=== PATIENT | female | born 1965 | race Two or more races ===

== ENCOUNTER 2024-10-17 11:28 | Inpatient (IN) | payer MEDICAID, SELFPAY ==
[2024-10-17] VITALS (12 sets, daily range): BP systolic 116–176; BP diastolic 56–79; PULSE 75–86; RESP 18–79; TEMP 37.1–37.8; O2SAT 74–100; BMI 34.6
--- NOTE | 2024-10-17 11:32 | EKG_ITS ---
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
--- NOTE | 2024-10-17 12:08 | XR_ITS ---
Examination: AP chest single view Technique one AP portable upright chest single view Date and time: October 17, 2024 1233 hours Comparison January 25, 2024 INDICATIONS: Shortness of breath this week. FINDINGS: Mild enlargement cardiac contour Moderate vascular congestion. No lobar pneumonia or pulmonary edema IMPRESSION: Moderate vascular congestion
[2024-10-17 12:29] LABS: Basophils % (Auto) 0 % (0-2.5); Eosinophils # (Auto) 0.1 Thou/mm3 (0.0-0.5); Eosinophils % (Auto) 1 % (0-10); Hemoglobin 11.5 g/dL (12.0-16.0); Immature Granulocytes % (Auto) 0 % (0-0); Immature Granulocytes Auto 0.03 Thou/mm3 (0.00-0.00); Lymphocytes # (Auto) 0.8 Thou/mm3 (1.0-4.8); Lymphocytes % (Auto) 11 % (10-50); Mean Corpuscular HGB Conc 33.8 g/dl (31.0-37.0); Mean Corpuscular Hemoglobin 34.7 pg (25.0-35.0); Mean Corpuscular Volume 103 fL (80-100); Monocytes # (Auto) 0.5 Thou/mm3 (0.0-0.8); Monocytes % (Auto) 7 % (0-12); Neutrophils # (Auto) 5.9 Thou/mm3 (1.8-7.7); Neutrophils % (Auto) 81 % (37-80); Nucleated Red Blood Cell % 0 /100 WBC (0); Platelet Count 144 Thou/mm3 (140-440); RDW Standard Deviation 57.2 fL (36.4-46.3); Red Blood Count 3.31 Miln/mm3 (4.00-5.20); White Blood Count 7.3 Thou/mm3 (3.6-11.0)
--- NOTE | 2024-10-17 12:34 | PD.EDSOB ---
ED SOB =RME/HPI General Chief Complaint: Shortness of Breath/Dyspnea Stated Complaint: SOB & FEVER X3DAYS Time Seen by Provider: 10/17/24 11:33 Arrival date/time: 10/17/24 11:28 RME / HPI RME / HPI Narrative: The patient is a 59-year-old female with significant past medical history of hypertension, diabetes mellitus type 2, hyperlipidemia, asthma, GERD, ESRD on hemodialysis MWF presented to ED on 10/17/2024 with chief complaint of SOB that has been worsening for the past couple of days. She was recommended extra session of hemodialysis every week, but she has not been able to adjust that. She had associated dizziness, epigastric pain, nausea, leg swelling, fever, and chills, but denied any headache, chest pain, any changes in bowel or bladder habit, vomiting. Related Data Home Medications ?Medication ?Instructions ?Recorded ?Confirmed glipizide 5 mg tablet 5 mg PO QDAY 08/12/19 02/03/24 atorvastatin 40 mg tablet 40 mg PO QDAY 10/07/21 02/03/24 carvedilol 6.25 mg tablet 6.25 mg PO BID 10/07/21 02/03/24 calcium acetate 667 mg tablet 1,334 mg PO TID 10/13/21 02/03/24 nifedipine 90 mg tablet,extended 90 mg PO BID 02/02/22 02/03/24 release insulin glargine 100 unit/mL (3 See Rx Instructions .Route .COMPLEX 03/09/22 02/03/24 mL) subcutaneous pen (Basaglar KwikPen U-100 Insulin) Previous Rx's ?Medication ?Instructions ?Recorded hydralazine 50 mg tablet 50 mg PO TID PRN SBP >150 #90 tabs 02/07/24 hydrocodone 5 mg-acetaminophen 325 1 tab PO TID PRN pain #18 tabs 02/07/24 mg tablet Allergies Allergy/AdvReac Type Severity Reaction Status Date / Time No Known Allergies Allergy Verified 10/17/24 11:32 Review of Systems Review of Systems Systems Reviewed: All systems reviewed, normal except as documented (Above) Past Medical History Past Medical History NEUROLOGIC: Negative Neurological Disorders or Seizures CARDIAC: Positive Cardiac Disorders, Hypercholesterolemia and Hypertension; Negative Cellulitis RESPIRATORY: Positive Pneumonia and Sleep Apnea GASTROINTESTINAL: Positive Gastrointestinal Disorders, Gall Bladder Disease, Ulcer and Gastroesophageal Reflux Disease; Negative Hepatitis GENITOURINARY: Positive Genitourinary Disorders, Renal Disease, Kidney Stones and Dialysis REPRODUCTIVE: Positive Previous Pregnancies MUSCULOSKELETAL: Positive Musculoskeletal Disorders and Arthritis ENT: Positive Cataracts ENDOCRINE: Positive Endocrine Disorders and Diabetes Mellitus Type 2 (GLIPIZIDE); Negative Diabetes Mellitus Type 1 or Hypothyroidism HEMATOLOGIC: Positive Blood Disorders and Anemia; Negative Sickle Cell Disease PSYCHO/SOCIAL: Positive Depression and Anxiety OTHER HISTORY: Positive Hospitalization, Blood Transfusions and Measles; Negative Autoimmune Disease, Shingles, Falls, Blood Transfusion Reaction, Anesthesia Reactions, Chemotherapy, Radiation Therapy, MRSA, Chicken Pox, Mumps or Cancer Family History FAMILY HISTORY: Positive Family Psychiatric Problems, Family Respiratory Disorders, Family Cardiac Disorders, Family Gastrointestinal Problems, Family Cancer and Family Anesthesia Reaction; Negative Family Surgery Surgical History SURGICAL: Positive Ear Surgery, Abdominal Surgery, Tubal Ligation and Section; Negative Cardiac Surgery, Pacemaker, Endocrine Surgery, Nephrectomy, Joint Replacement or Neurologic Surgery Social History SMOKING STATUS: Former smoker (Smoked about 3 years, couple cigarettes a day.) SUBSTANCE USE: does not use ED Exam Narrative Physical exam: General: Elderly, cooperative female, no acute distress, Alert and Oriented x 3 HEENT: Moist mucous membranes, oropharynx clear Neck: Supple, No masses, No JVD CVS: S1S2 Regular rate and rhythm, No murmurs, rubs or gallops Lungs: Rhonchi and wheezing appreciated throughout the lung field Abd: Soft, NT/ND, +BS, no organomegaly Ext: 2-3+ bilateral lower limb edema, warm and well perfused Skin: Darkening of lower limb Psych: Tired appearing Course Quality Measures none Orders Category Date Time Status Bedside COVID-19 Antigen Test NOW Care 10/17/24 12:09 Active Bedside Influenza A&B Antigen Test NOW Care 10/17/24 12:09 Completed EKG (ED ONLY) *Do not use* NOW Care 10/17/24 11:32 Completed EKG (ED Only) Stat Exams 10/17/24 11:32 Draft XR chest 1V Stat Exams 10/17/24 12:08 Completed B-Type Natriuretic Peptide Stat Lab 10/17/24 12:20 Completed Blood Culture (Lab) Stat Lab 10/17/24 12:43 Received CBC Stat Lab 10/17/24 12:20 Completed Comprehensive Metabolic Panel Stat Lab 10/17/24 12:20 Completed ESR [Sed Rate (ESR)] Stat Lab 10/17/24 12:45 Completed Lactic Acid [Lactate (Lactic Acid)] Stat Lab 10/17/24 12:45 Completed Magnesium Stat Lab 10/17/24 12:20 Completed Partial Thromboplastin Time Stat Lab 10/17/24 12:20 Completed Procalcitonin Stat Lab 10/17/24 12:45 Received Prothrombin Time with INR Stat Lab 10/17/24 12:20 Completed RSV [Respiratory Syncytial Virus Ag] Stat Lab 10/17/24 12:21 Completed Sputum Culture and Gram Stain Stat Lab 10/17/24 12:58 Received Troponin I Stat Lab 10/17/24 12:20 Completed Urinalysis Stat Lab 10/17/24 12:08 Ordered Albuterol/Ipratr Rt Niurka [Duoneb Rt Niurka] Med 10/17/24 12:27 Discontinued 3 ml INH X1 ONE Doxycycline Inj [Vibramycin Inj] 100 mg Med 10/17/24 12:27 Discontinued Sodium Chloride 0.9% (Pop) [NS 0.9% mini bag] 100 ml IV X1 Sodium Chloride Rt Niurka 10% [NS Rt Niurka 10%] Med 10/17/24 12:30 Discontinued 5 ml INH X1 ONE cefTRIAXone/D5w 1gm IV premix [Rocephin/D5w 1gm IV Med 10/17/24 12:27 Discontinued premix] 1 gm in 50 ml IV X1 Oxygen Delivery NOW RT 10/17/24 12:10 Active Sputum Induction PRN RT 10/17/24 12:30 Ordered Vital Signs Vital signs: Vital Signs Temperature 100.1 F 10/17/24 11:53 Pulse Rate 86 10/17/24 11:53 Respiratory Rate 18 10/17/24 11:53 Blood Pressure 147/72 H 10/17/24 11:53 Pulse Oximetry (%) 74 L 10/17/24 11:53 Oxygen Delivery Method Room Air 10/17/24 11:53 Shortness of Breath / Dyspnea MDM Narrative MDM Narrative:: The patient is a 59-year-old female with significant past medical history of hypertension, diabetes mellitus type 2, hyperlipidemia, asthma, GERD, ESRD on hemodialysis MWF presented to ED on 10/17/2024 with chief complaint of SOB that has been worsening for the past couple of days. She was recommended extra session of hemodialysis every week, but she has not been able to adjust that. She had associated dizziness, epigastric pain, nausea, leg swelling, fever, and chills, but denied any headache, chest pain, any changes in bowel or bladder habit, vomiting. Her vitals were BP 147/72, pulse 86, RR 18, temperature 100.1, saturating 74% on room air. Labs revealed Hb 11.5, MCV 103, ESR 41, Coag panel WNL, potassium 5.2, bicarb 31.2, chloride 94, BUN 30, creatinine 4.1, EGFR 12, blood sugar 193, corrected calcium 8.0, AST 39, ALP 265, BNP 673, rapid COVID-19 test negative, influenza A and B-, and RSV negative. Chest x-ray revealed moderate CHF, and EKG revealed sinus rhythm with incomplete RBBB, QTc 483. The patient was given DuoNeb INH x 1, ceftriaxone 1 g IV x 1, doxycycline 100 Mg IV x 1. Furnace Charger Dr. Cortes was consulted, who recommended admitting the patient and would proceed with hemodialysis session. Patient data External records reviewed:: [facility] previous records Clinical information provided by:: patient and family Social determinants that could affect healthcare access:: none Patient has the following chronic illnesses:: See above How is presenting disease/condition affected by chronic disease/condition?: caused by Evaluation data The following diagnostics were reviewed and interpreted by me:: lab results, radiology exam(s) and EKG tracing(s) Lab and/or radiology exams considered but not ordered:: None Interpretation Summary: See above Medications / Prescriptions Medications or Prescriptions considered but not ordered:: None Medication administrations:: Medication Administration History Discontinued Medications Albuterol/Ipratropium (Albuterol/Ipratropium (Duoneb) Rt Niurka 3 Ml Nebu) 3 ml INH X1 ONE Stop: 10/17/24 12:28 Last Admin: 10/17/24 12:52 Dose: 3 ml Documented By: NILESH Ceftriaxone Sodium/Dextrose (Rocephin/D5w 1gm Iv Premix) 1 gm in 50 mls @ 100 mls/hr IV X1 ONE Stop: 10/17/24 12:56 Last Infusion: 10/17/24 13:21 Dose: Infused Documented By: Admin: 10/17/24 12:50 Dose: 100 mls/hr Documented By: GM Doxycycline Hyclate 100 mg/ (Sodium Chloride) 100 mls @ 100 mls/hr IV X1 ONE Stop: 10/17/24 13:26 Last Admin: 10/17/24 13:27 Dose: 100 mls/hr Documented By: GM Sodium Chloride (Sodium Chloride Rt 10% 15 Ml Nebu) 5 ml INH X1 ONE Stop: 10/17/24 12:31 See above Consultations Consultation(s) initiated? (list below): Yes Consultation #1 (Physician, Specialty, Details): Dr. Cortes Diagnosis Shortness of Breath Differential Diagnosis: congestive heart failure, community acquired pneumonia and other (volume overload) Most likely diagnosis given after review of the tests above:: New onset CHF exacerbation Admission Indicated Admission indicated?: indicated Admission Request Was there a request for admission?: Yes Admission Attestation Admission request attestation: Discussed case with Dr. Elizabeth from Hospitalist service regarding admission. Discussed patients ED course, exam findings, labs, and radiology results. The Hospitalist agrees to accept the patient for admission. Disposition Plan Disposition Plan: Admit Discharge Plan Plan Patient Disposition: Admit Acute Care w/in Hospital Prescriptions/Referrals Prescriptions/Med Rec: No Action calcium acetate 667 mg Tablet 1,334 mg PO TID Rx Instructions: after every meal glipizide 5 mg Tablet 5 mg PO QDAY atorvastatin 40 mg tablet 40 mg PO QDAY Patient Comments: TOME JAMES TABLETA TODOS LOS D FOR 90 DAYS carvedilol 6.25 mg tablet 6.25 mg PO BID Patient Comments: TOME JAMES TABLETA DOS VECES AL D A nifedipine 90 mg tablet extended release 90 mg PO BID Patient Comments: TOME JAMES TABLETA TODOS LOS D EN EST MELLISSA VAC O FOR 90 DAYS insulin glargine [Basaglar KwikPen U-100 Insulin] 100 unit/mL (3 mL) insulin pen See Rx Instructions .ROUTE .COMPLEX Patient Comments: INYECTE 20 UNIDADES DEBAJO DE LA PIEL EN LA MANANA Y 15 UNIDADES EN LA TARDE Rx Instructions: per sliding scale per daughter. hydralazine 50 mg Tablet 50 mg PO TID PRN (Reason: SBP >150) Qty: 90 0RF hydrocodone-acetaminophen 5-325 mg tablet 1 tab PO TID MDD 15mg PRN (Reason: pain) Qty: 18 0RF Referrals: Miguel Macdonald MD [Primary Care Provider] - In 1 week Problem List Clinical Impression: Acute hypoxemic respiratory failure, ESRD due to benign hypertension, Congestive heart failure Patient/Caregiver Discharge Instructions Print Language: Greenlandic Stand Alone Forms: [facility] Award Info., Patient Portal Info Letter
[2024-10-17] MEDS: cefTRIAXone/D5w 1gm IV premix 1 GM/50 ML BAG IV (12:50)
[2024-10-17] MEDS: ALBUTEROL/IPRATROPIUM (Duoneb) RT SOL 3 ML NEBU INH (12:52)
[2024-10-17 13:14] LABS: Alanine Aminotransferase 19 U/L (10-49); Albumin/Globulin Ratio 1.6 (1.2-2.2); Alkaline Phosphatase 265 U/L (46-116); Anion Gap 11 (7-16); Aspartate Amino Transferase 39 U/L (0-34); B-Type Natriuretic Peptide 673 pg/mL (0-100); BUN/Creatinine Ratio 7 Ratio (12-20); Bilirubin,Total < 0.2 mg/dL (0.3-1.2); Blood Urea Nitrogen 30 mg/dL (9-23); Carbon Dioxide 31.2 mMol/L (20.0-31.0); Chloride 94 mMol/L (98-107); Creatinine (Component) 4.1 mg/dL (0.6-1.3); Globulin 2.5 gm/dL (2.3-3.5); Glucose 193 mg/dL (74-106); Magnesium 2.2 mg/dL (1.6-2.6); Osmolality,Calculated 283 (275-295); Potassium 5.2 mMol/L (3.4-5.1); Sodium 136 mMol/L (136-145); Total Protein 6.5 gm/dL (5.7-8.2); Troponin I < 0.020 ng/mL (0.0-0.045); eGFR 12 See Note
[2024-10-17 13:16] LABS: Respiratory Syncytial Virus Ag Negative (Negative)
[2024-10-17 13:18] LABS: Lactate (Lactic Acid) 0.8 mMol/L (0.4-2.0)
[2024-10-17] MEDS: DOXYCYCLINE INJ 100 MG in SODIUM CHLORIDE 0.9% (POP) 100 ML IV (13:27)
[2024-10-17 13:28] LABS: Sed Rate (ESR) 41 mm/hr (0-30)
[2024-10-17 13:42] LABS: INR 1.1 (0.9-1.3); Partial Thromboplastin Time 31.9 Seconds (22.0-36.0); Prothrombin Time 11.5 Seconds (9.0-12.2)
[2024-10-17 14:18] LABS: Procalcitonin 1.24 ng/ml (0.0-0.49)
--- NOTE | 2024-10-17 15:03 | ECHO_ITS ---
Transthoracic Echo Report Ht (in): 57 Wt (lb): 160 Exam Location: Echo Lab Status: Emergency Cardiovascular Specialist: Miya Power Indications: Procedure Performed: BP: 123 / 66 HR: 83 Technical Quality: Technically difficult study MEASUREMENTS (Male / Female) Normal Values 2D ECHO LV Diastolic Diameter PLAX 4.4 cm 4.2 - 5.9 / 3.9 - 5.3 cm LV Systolic Diameter PLAX 3.1 cm IVS Diastolic Thickness 0.9 cm 0.6 - 1.0 / 0.6 - 0.9 cm LVPW Diastolic Thickness 0.9 cm 0.6 - 1.0 / 0.6 - 0.9 cm LV Relative Wall Thickness 0.4 LVOT Diameter 1.4 cm LA Volume Index 32.6 cm?/m? 16 - 28 cm?/m? M-MODE Aortic Root Diameter MM 2.3 cm LA Systolic Diameter MM 3.8 cm LA Ao Ratio MM 1.7 AV Cusp Separation MM 1.8 cm DOPPLER AV Peak Velocity 153.0 cm/s AV Peak Gradient 9.4 mmHg AV Mean Gradient 5.0 mmHg AV Velocity Time Integral 30.9 cm LVOT Peak Velocity 122.0 cm/s LVOT Peak Gradient 6.0 mmHg LVOT Velocity Time Integral 24.5 cm LVOT Cardiac Index 1792.2 cm?/min?m? AV Area Cont Eq vti 1.2 cm? AV Area Cont Eq pk 1.2 cm? MV Area PHT 5.4 cm? Mitral E Point Velocity 91.2 cm/s Mitral A Point Velocity 52.4 cm/s Mitral E to A Ratio 1.7 LV E' Lateral Velocity 10.4 cm/s Mitral E to LV E' Lateral Ratio 8.8 LV E' Septal Velocity 8.5 cm/s Mitral E to LV E' Septal Ratio 10.7 TR Peak Velocity 280.5 cm/s TR Peak Gradient 31.5 mmHg PV Peak Velocity 138.0 cm/s PV Peak Gradient 7.6 mmHg FINDINGS Left Ventricle Normal left ventricular size, wall thickness, systolic function with no obvious regional wall motion abnormalities. Normal left ventricular diastolic filling pattern for age. The ejection fraction is visually estimated at 55 %. Right Ventricle The right ventricular size is moderately increased with normal systolic function. The estimated right ventricular systolic pressure, 49 mmHg. RAP 15. Left Atrium Normal left atrial size. Right Atrium The right atrial cavity size is moderately increased. Atrial Septum The interatrial septum appears normal with no evidence of a shunt. Aorta The aorta is normal by two-dimensional, color flow and Doppler interrogation. Mitral Valve The mitral valve is normal by two-dimensional, color flow and Doppler interrogation. Trace mitral regurgitation. Aortic Valve The aortic valve is trileaflet and normal by two-dimensional, color flow and Doppler interrogation. There is no significant aortic valve regurgitation. Tricuspid Valve The tricuspid valve is normal by two-dimensional, color flow and Doppler interrogation. There is moderate tricuspid regurgitation. Pulmonic Valve The pulmonic valve is not well visualized. There is no significant pulmonic valve regurgitation. Vessels Dilated inferior vena cava. Pericardium The pericardium is normal by two-dimensional imaging. There is no significant pericardial effusion. CONCLUSIONS Indication: Possible new onset CHF Normal left ventricular size and function. Estimated EF 55 %. RV size is moderately increased with normal systolic function. The estimated RVSP, 49 mmHg. RAP 15. RA cavity size is moderately increased. Trace MR. Moderate TR. Dilated IVC. Madison Robertson (Electronically Signed) Final Date: 22 Oct 2024 21:17
--- NOTE | 2024-10-17 15:15 | ESHP_ITS ---
Documentation for date of: 10/17/24 [facility] History of Present Illness History of present illness: Donna Max is a 59-year-old female with a past medical history of ESRD on HD M/W/F (follows Dr. Cortes), hypertension, hyperlipidemia, type 2 diabetes mellitus, asthma, GERD and depression who presents on 10/17 with shortness of breath. Daughter present at bedside to help provide additional history and translate. For the last 4 to 5 days, patient has been experiencing worsening shortness of breath with associated productive cough nonbloody, green- colored sputum, fever, chills, and pleuritic chest discomfort. Daughter states that there have been multiple sick contacts at home but patient was tested and negative for COVID and flu in the ED. Patient has also been experiencing orthopnea, PND, and worsening lower extremity edema. She underwent hemodialysis yesterday with no improvement in her symptoms. Regarding chest discomfort, it is pressure-like, substernal, radiates to the back, not associated with activity, but is tender to palpation and worsens with movement. However, daughter states that patient at baseline becomes dyspneic upon mild exertion and was prescribed home oxygen approximately 2 years ago but has since been taken away for unknown reasons. Does not follow-up with a metal temperer. In ED, initial vitals showed temperature 100.1 ?F, breathing 74% on room air and then placed on 10 L oxy mask eventually titrated down to 2 L NC saturating 96%. RSV, COVID and flu negative as mentioned above. CBC showed macrocytic anemia (chronic), no leukocytosis, ESR elevated at 41, Pro-Aj 1.24, K 5.2, HCO3 31.2, BUN 30, creatinine 4.1, GFR 12, glucose 193, ALP 265, troponins negative, BNP 673. CXR showed vascular congestion but no signs of pneumonia or pulmonary edema. EKG showed NSR with incomplete RBBB with QTc of 483. Given ceftriaxone and doxycycline x 1 in ED as well as x 1 DuoNeb treatment. Admitted for AHRF secondary to community acquired pneumonia and requiring extra session of hemodialysis. PMHx: ESRD on HD M/W/F (follows Dr. Bennett), hypertension, hyperlipidemia, type 2 diabetes mellitus, asthma, and GERD SHx: denies cigarette, alcohol, or illicit drug use PSHx: 3 C-sections, hernia repair, cholecystectomy, fistula in RUE Allergies: none Review of Systems Review of Systems Systems Reviewed: All systems reviewed, normal except as documented Exam Vital Signs Temp Pulse Resp BP Pulse Ox O2 Del Method O2 Flow Rate 99.3 F 85 19 147/69 H 96 Oxy Mask 2 10/17/24 14:00 10/17/24 14:00 10/17/24 14:00 10/17/24 14:00 10/17/24 14:00 10/17/24 14:00 10/17/24 14:00 Narrative Exam General: AOx3, mild distress, able to speak in full sentences HEENT: NC/AT, mucous membranes moist, bilateral sclera anicteric Cardiovascular: regular rate and rhythm, S1/S2 present, no murmurs appreciated Pulmonary: rales appreciated anteriorly and bilaterally, on 2 L NC saturating 94%, no accessory muscle use Abdominal: obese, soft, non-tender, non-distended, no rebound/guarding Musculoskeletal: bilateral lower extremity pitting edema (1+ RLE, 2+ LLE), normal ROM Skin: fistula in RUE, warm and dry, intact, no rashes Neuro: CN II-XII intact, no focal deficits Results: Labs 10/17/24 12:20 10/17/24 12:20 Labs: Short CBC 10/17/24 Range/Units 12:20 WBC 7.3 (3.6-11.0) Thou/mm3 Hgb 11.5 L (12.0-16.0) g/dL Hct 34.0 L (36.0-46.0) % Plt Count 144 (140-440) Thou/mm3 BMP 10/17/24 12:20 Sodium 136 Potassium 5.2 H Chloride 94 L Carbon Dioxide 31.2 H BUN 30 H Creatinine 4.1 H* Glucose 193 H Calcium 8.0 L Cardiac Enzymes 10/17/24 Range/Units 12:20 Troponin I < 0.020 (0.0-0.045) ng/mL Liver Function 10/17/24 Range/Units 12:20 Total Bilirubin < 0.2 L (0.3-1.2) mg/dL AST 39 H (0-34) U/L ALT 19 (10-49) U/L Alkaline Phosphatase 265 H (46-116) U/L Albumin 4.0 (3.4-4.8) gm/dL Quality Measures Quality Measures none Medications Home Medications and Allergies Home Medications ?Medication ?Instructions ?Recorded ?Confirmed ?Type glipizide 5 mg tablet 5 mg PO QDAY 08/12/19 History atorvastatin 40 mg tablet 40 mg PO QDAY 10/07/2110/17 History carvedilol 6.25 mg tablet 6.25 mg PO BID 10/07/21/07/23 History calcium acetate 667 mg tablet 1,334 mg PO TID 10/13/21 02/03/24 History nifedipine 90 mg tablet,extended 90 mg PO BID 02/02/22 10/17/24 History release insulin glargine 100 unit/mL (3 See Rx Instructions .R oute .COMPLEX 03/09/22 02/03/24 History mL) subcutaneous pen (Basaglar KwikPen U-100 Insulin) sertraline 100 mg tablet 150 mg PO DAILY 10/17/24 History Allergies Allergy/AdvReac Type Severity Reaction Status Date / Time No Known Allergies Allergy Verified 10/17/24 11:32 Visit Medications Acetaminophen (Acetaminophen 325 Mg Tablet) 650 mg PO Q6H PRN PRN Reason: PAIN 1-3 OR FEVER > 100.4 Stop: 11/16/24 14:58 Albuterol (Albuterol Rt 2.5 Mg/0.5 Ml Nebu) 2.5 mg INH Q2HR PRN PRN Reason: SHORTNESS OF BREATH OR WHEEZE Stop: 11/16/24 14:58 Dextrose (Dextrose 50%-Water Inj 50 Ml Syringe) 25 ml IV Q15MIN PRN PRN Reason: BG 50-70 responsive npo pt Stop: 11/16/24 15:04 Dextrose (Dextrose 50%-Water Inj 50 Ml Syringe) 50 ml IV Q15MIN PRN PRN Reason: BG <50 OR BG <70 & pt unresponsive Stop: 11/16/24 15:04 Glucagon (Glucagon Inj 1 Mg Vial) 1 mg IM Q15MIN PRN PRN Reason: BG <70, and no IV access Heparin Sodium (Porcine) (Heparin Sod Inj 5000 Unit/Ml Vial) 5,000 unit SC BID [facility] Stop: 10/31/24 20:59 Azithromycin 500 mg/ Sodium (Chloride) 250 mls @ 250 mls/hr IV QDAY [facility] Stop: 10/24/24 15:08 Ceftriaxone Sodium/Dextrose (Rocephin/D5w 1gm Iv Premix) 1 gm in 50 mls @ 100 mls/hr IV QDAY [facility] Stop: 10/25/24 08:59 Azithromycin 500 mg/ Sodium (Chloride) 250 mls @ 250 mls/hr IV X1 ONE Stop: 10/17/24 16:14 Insulin Human Lispro (Insulin Lispro (Admelog) 1 Unit/0.01 Ml Unit) 0 unit SC AC [facility]; Protocol Stop: 11/16/24 16:59 Metoclopramide HCl (Metoclopramide 5 Mg Tablet) 10 mg PO Q6H PRN PRN Reason: NAUSEA OR VOMITING Stop: 11/16/24 14:58 Oxycodone/Acetaminophen (Oxycodone/Apap 5/325 Tablet) 1 tab PO Q8H PRN PRN Reason: PAIN SCALE 4-6 (Moderate Stop: 10/22/24 14:58 Sodium Chloride (Sodium Chloride Rt Niurka 0.9% 3 Ml Nebu) 3 ml INH PRN PRN PRN Reason: SOLN Stop: 11/16/24 14:58 Discontinued Medications Albuterol/Ipratropium (Albuterol/Ipratropium (Duoneb) Rt Niurka 3 Ml Nebu) 3 ml INH X1 ONE Stop: 10/17/24 12:28 Last Admin: 10/17/24 12:52 Dose: 3 ml Ceftriaxone Sodium/Dextrose (Rocephin/D5w 1gm Iv Premix) 1 gm in 50 mls @ 100 mls/hr IV X1 ONE Stop: 10/17/24 12:56 Last Infusion: 10/17/24 13:21 Dose: Infused Doxycycline Hyclate 100 mg/ (Sodium Chloride) 100 mls @ 100 mls/hr IV X1 ONE Stop: 10/17/24 13:26 Last Infusion: 10/17/24 14:35 Dose: Infused Sodium Chloride (Sodium Chloride Rt 10% 15 Ml Nebu) 5 ml INH X1 ONE Stop: 10/17/24 12:31 Assessment & Plan Plan Donna Max is a 59-year-old female with a past medical history of ESRD on HD M/W/F (follows Dr. Cortes), hypertension, hyperlipidemia, type 2 diabetes mellitus, asthma, GERD, and depression who is admitted for AHRF secondary to community acquired pneumonia and requiring extra session of hemodialysis. #AHRF, likely secondary to CAP versus new onset CHF versus fluid overload from ESRD Presents with shortness of breath and associated fever, chills, and productive cough for the last 4 to 5 days. States that she has had sick contacts at home. On admission, temperature at 100.1 ?F and saturating 74% on room air. CXR showed vascular congestion but no signs of pneumonia. No leukocytosis but ESR and Pro-Aj elevated. Flu, COVID, RSV negative. Although abnormal liver function, known to have ESRD so no signs of endorgan damage (lactate normal, T. bili normal). In ED, received ceftriaxone and doxycycline x 1 on 10/17. ? Ceftriaxone (10/17-) and azithromycin (10/18-) ? Follow-up blood culture ? Follow-up sputum culture ? Supplemental oxygen as needed; may need to be discharged with home O2 #ESRD on HD M// #Hyperkalemia #Hypocalcemia Follows Dr. Cortes outpatient. ? Nephrology consulted, appreciate recommendations ? Avoid nephrotoxic agents when possible ? Renally dose medications #? New onset CHF Endorses orthopnea, PND, bilateral lower extremity edema. BNP elevated at 673, troponin negative. Given the patient is ESRD and produces very little urine, unable to obtain accurate I's and O's or diurese. ? Follow-up echo ? Dialysis for fluid control per nephrology #Hypertension ? Carvedilol 6.25 mg p.o. twice daily ? Hydralazine 50 mg p.o. twice daily ? Nifedipine 60 mg p.o. twice daily #Hyperlipidemia ? Atorvastatin 40 mg p.o. daily #Type 2 diabetes mellitus ? Follow-up A1c ? SSI, Accu-Cheks ACHS ? Hypoglycemic protocol in place #Asthma ? Albuterol 2.5 mg every 4 hours as needed #GERD ? Pantoprazole 40 mg p.o. daily #Depression ? Sertraline 150 mg p.o. daily Hospital management: Disposition: AHRF 2/2 CAP on IV antibiotics, possible new onset CHF, hemodialysis Diet: renal panel Lines: PIV DVT prophylaxis: heparin SC BID GI prophylaxis: pantoprazole 40 mg p.o. daily CODE STATUS: DNR ----- Plan discussed with attending physician Dr. Byron Monet MD PGY-1 Internal Medicine Attending Provider Attestation/Addendum I attest that I was physically present for the evaluation, physical examination, lab and imaging review of the patient with the residents. I discussed the case with the residents and agree with the findings and plans of care as documented above. Patient is a 59 years old female with past medical history of ESRD on hemodialysis, hypertension, hyperlipidemia, diabetes, asthma, GERD and depression who presented with complaint of shortness of breath. Patient has been having shortness of breath with productive cough, fever and chills, pleuritic chest pain while coughing and breathing deep for last 4 to 5 days. She has multiple sick contacts at home. She is also having orthopnea, PND and lower extremity edema. Patient underwent hemodialysis yesterday, did not have any improvement in her symptoms. In the ED, she was found to have temperature of 100.1 ?F, initially was saturating at 74% on room air and was placed on 10 L oxy mask. Lab results show ESR of 41, procalcitonin 1.24, potassium 5.2, BUN/creatinine 30/4.1, BNP 673. Troponin levels were negative, RSV COVID and flu were also negative. Chest x-ray shows vascular congestion. EKG shows normal sinus rhythm without ST changes. After examination of the patient and review of clinical data I feel that this patient needs admission to the hospital for further treatment/evaluation of acute hypoxic respiratory failure possibly secondary to community-acquired pneumonia versus CHF exacerbation versus volume overload status. Will restart her on IV Rocephin, continue with hemodialysis and fluid removal, obtain echocardiography, culture results. We will resume her home antihypertensives, statin. Started on insulin regimen for diabetes, albuterol as needed for asthma and sertraline for her depression. Driss Matthews MD
--- NOTE | 2024-10-17 17:13 | PD.NEPHCONS ---
History of Present Illness Data of Consult Consult date: 10/17/24 Requesting Physician: Driss Matthews MD Primary Care Provider: Miguel Macdonald MD Consult Narrative Reason for consult: ESRD, need for HD History of present illness: Ms. Rivero is a 58-year-old lady who is well-known to me from my renal clinic with extensive past medical history of hypertension, diabetes mellitus, hyperlipidemia, asthma, GERD, end-stage renal disease on dialysis MWF, presented to the ED due to significant shortness of breath and fluid overload. Patient has been noncompliant with her fluids and has been drinking significant amount of fluids. Unable to do extra dialysis sessions, unable to pull more fluid per session. In the ED she was noted to have 23+ edema with hypoxic respiratory failure. Patient admitted to telemetry and renal consultation requested for need for emergency dialysis. Home medications: Atorvastatin, calcium, carvedilol 6.25, glipizide 5 mg, hydralazine 50 mg 3 times daily, insulin glargine, nifedipine 90 milligram p.o. twice daily ED course: Blood pressure 131/61, heart rate 77. WBC 7.3, hemoglobin 11.5, platelets 144. Coags normal. Chemistries sodium 136, potassium 5.2, BUN 30, creatinine 4.1, GFR 12, blood sugar 193, calcium 8.0, AST 39, ALT 265, BNP 693, albumin 4, lipids normal, Pro-Aj 1.24 urinalysis shows 2+ protein with 4+ bacteria. RSV negative. Chest x-ray showed moderate vascular congestion. Patient admitted to telemetry. Nephrology consultation requested for need for dialysis. cc:: cc: Driss Matthews MD Review of Systems Review of Systems Narrative Review of Systems: CONSTITUTIONAL: Patient denies any fever, chills. HEENT: Denies any visual disturbances or hearing problems. CARDIOVASCULAR: Patient denies any chest pain c/o shortness of breath, swelling in the lower extremities. PULMONARY: Patient c/o shortness of breath, cough. GASTROINTESTINAL: Patient denies any abdominal pain, constipation, nausea, vomiting, diarrhea. GENITOURINARY: Patient denies any urinary symptoms of burning or frequency or hematuria, denies any form in the urine. SKIN: Denies any rash. MUSCULOSKELETAL: complaining of gait imbalance NEUROLOGICAL: Denies any neurological problems of strokes, seizures or confusion. Denies any memory problems. PSYCHIATRIC: Denies any depression or anxiety. LYMPHATICS : No lymphadenopathy Past Medical History Past Medical History NEUROLOGIC: Negative Neurological Disorders or Seizures CARDIAC: Positive Cardiac Disorders, Hypercholesterolemia and Hypertension; Negative Congestive Heart Failure, Edema, Cellulitis or Varicose Veins RESPIRATORY: Positive Pneumonia and Sleep Apnea; Negative Chronic Obstructive Pulmonary Disease (COPD), Asthma or Tuberculosis GASTROINTESTINAL: Positive Gastrointestinal Disorders, Gall Bladder Disease, Ulcer and Gastroesophageal Reflux Disease; Negative Hepatitis GENITOURINARY: Positive Genitourinary Disorders, Renal Disease, Kidney Stones and Dialysis REPRODUCTIVE: Positive Previous Pregnancies MUSCULOSKELETAL: Positive Musculoskeletal Disorders and Arthritis ENT: Positive Cataracts ENDOCRINE: Positive Endocrine Disorders and Diabetes Mellitus Type 2; Negative Diabetes Mellitus Type 1 or Hypothyroidism HEMATOLOGIC: Positive Blood Disorders and Anemia; Negative Sickle Cell Disease PSYCHO/SOCIAL: Positive Depression and Anxiety OTHER HISTORY: Positive Hospitalization, Blood Transfusions and Measles; Negative Autoimmune Disease, Shingles, Falls, Blood Transfusion Reaction, Anesthesia Reactions, Chemotherapy, Radiation Therapy, MRSA, Chicken Pox, Mumps or Cancer Family History FAMILY HISTORY: Positive Family Psychiatric Problems, Family Respiratory Disorders, Family Cardiac Disorders, Family Gastrointestinal Problems, Family Cancer and Family Anesthesia Reaction; Negative Family Surgery Surgical History SURGICAL: Positive Ear Surgery, Abdominal Surgery, Tubal Ligation and Section; Negative Cardiac Surgery, Pacemaker, Endocrine Surgery, Nephrectomy, Joint Replacement or Neurologic Surgery Social History SMOKING STATUS: Former smoker SUBSTANCE USE: does not use Meds Home Medications and Allergies Home Medications ?Medication ?Instructions ?Recorded ?Confirmed ?Type glipizide 5 mg tablet 5 mg PO QDAY 08/12/19 02/03/24 History atorvastatin 40 mg tablet 40 mg PO QDAY 10/07/21 10/17/24 History carvedilol 6.25 mg tablet 6.25 mg PO BID 10/07/21 10/17/24 History calcium acetate 667 mg tablet 1,334 mg PO TID 10/13/21 02/03/24 History nifedipine 90 mg tablet,extended 90 mg PO BID 02/02/22 10/17/24 History release insulin glargine 100 unit/mL (3 See Rx Instructions .Route .COMPLEX 03/09/22 10/18/24 History mL) subcutaneous pen (Basaglar KwikPen U-100 Insulin) sertraline 100 mg tablet 150 mg PO DAILY 10/17/24 10/17/24 History Allergies Allergy/AdvReac Type Severity Reaction Status Date / Time No Known Allergies Allergy Verified 10/17/24 11:32 Exam Vital Signs Temp Pulse Resp BP Pulse Ox O2 Del Method O2 Flow Rate 37.2 C 78 25 H 175/74 H 95 Oxy Mask 3 10/17/24 19:26 10/17/24 21:00 10/17/24 21:00 10/17/24 20:13 10/17/24 21:00 10/17/24 19:26 10/17/24 21:00 Narrative Exam GENERAL APPEARANCE: Patient very short of breath. Currently on dialysis. NECK: Neck supple, no JVD or bruit CARDIOVASCULAR: Heart regular, no murmurs LUNGS/CHEST: Decreased breath sounds/crackles at the bases ABDOMEN: Soft, nontender, nondistended. No masses. Normal bowel sounds. EXTREMITIES: 3+ edema noted in the lower extremities SKIN: Skin exam normal without any rashes MUSCULOSKELETAL: in bed PSYCHIATRIC: Normal mood, affect LYMPHATICS: No lymphadenopathy noted NEUROLOGICAL : No neurological deficits Results Labs 10/19/24 04:56 10/19/24 04:56 Labs: Short CBC 10/17/24 Range/Units 12:20 WBC 7.3 (3.6-11.0) Thou/mm3 Hgb 11.5 L (12.0-16.0) g/dL Hct 34.0 L (36.0-46.0) % Plt Count 144 (140-440) Thou/mm3 BMP 10/17/24 12:20 Sodium 136 Potassium 5.2 H Chloride 94 L Carbon Dioxide 31.2 H BUN 30 H Creatinine 4.1 H* Glucose 193 H Calcium 8.0 L Cardiac Enzymes 10/17/24 Range/Units 12:20 Troponin I < 0.020 (0.0-0.045) ng/mL Liver Function 10/17/24 Range/Units 12:20 Total Bilirubin < 0.2 L (0.3-1.2) mg/dL AST 39 H (0-34) U/L ALT 19 (10-49) U/L Alkaline Phosphatase 265 H (46-116) U/L Albumin 4.0 (3.4-4.8) gm/dL Urine 10/17/24 Range/Units 20:57 Urine Color Yellow (Lt Yel-Yel) Urine Clarity Clear (Clear/Hazy) Urine pH 8.0 H (5.0-7.0) Ur Specific Strum 1.022 (1.001-1.035) Urine Protein 2+ A (Neg - Trace) Urine Glucose (UA) Negative (Negative) Assessment & Plan Assessment and plan (1) End stage renal failure on dialysis: Status: Acute Assessment and plan: 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 Patient currently on Monday, Monday, Monday dialysis. Patient currently seen on dialysis. Tolerating dialysis without any problems. Hemodialysis for 3 hours, 2K, ultrafiltration 2-3 L, Epogen 6000, no heparin ordered. Plan of care discussed with the dialysis nurse. Please see dialysis flowsheet for further details. Patient will need extra session tomorrow (2) Hypertension: Status: Acute Assessment and plan: Continue with home blood pressure medications (3) Diabetes: Status: Acute Assessment and plan: Accu-Chek, sliding scale, diabetic diet. (4) Congestive heart failure: Status: Acute Assessment and plan: Currently on dialysis (5) Acute hypoxemic respiratory failure: Status: Acute Assessment and plan: Secondary to fluid overload (6) Anemia of chronic disease: Status: Acute Assessment and plan: Epogen with dialysis (7) Elevated LFTs: Status: Acute Assessment and plan: Passive liver congestion Additional Assessment & Plan Additional Plan: Thank you Driss for allowing me to participate in the care of Ms. Rivero
--- NOTE | 2024-10-17 19:33 | PC.NURSE ---
Returned from dialysis at 191
[2024-10-17] MEDS: AZITHROMYCIN INJ 500 MG in SODIUM CHLORIDE 0.9% 250 ML 250 ML 250 MG IV (19:54)
[2024-10-17] MEDS: oxyCODONE/APAP 5/325 TABLET 1 TAB PO (20:11)
[2024-10-17] MEDS: carVEDILOL 3.125 MG TABLET 6.25 MG PO (20:11)
[2024-10-17] MEDS: hydrALAZINE HCL 25 MG TABLET 50 MG PO (20:12)
[2024-10-17] MEDS: NIFEdipine XL 30 MG TABCR 90 MG PO (20:13)
[2024-10-17] MEDS: HEPARIN SOD INJ 5000 UNIT/ML VIAL SC (20:14)
[2024-10-17] MEDS: SODIUM CHLORIDE RT SOL 0.9% 3 ML NEBU INH (21:00)
[2024-10-17] MEDS: ALBUTEROL RT 2.5 MG/0.5 ML NEBU INH (21:00)
[2024-10-17 21:01] LABS: Collection Type, Urine Clean Catch
[2024-10-17 21:08] LABS: Bacteria,Urine 4+; Bilirubin,Urine Negative (Negative); Blood,Urine Negative (Negative); Clarity,Urine Clear (Clear/Hazy); Color,Urine Yellow (Lt Yel-Yel); Glucose, Urine Negative (Negative); Ketones,Urine Negative (Negative); Leukocyte Esterase,Urine Negative (Negative); Nitrite,Urine Negative (Negative); Protein,Urine 2+ (Neg - Trace); RBC,Urine 11 /hpf (0-3); Specific Gravity,Urine 1.022 (1.001-1.035); Squamous Epithelial Cell,Urine 17 /hpf (0-5); Urobilinogen,Urine Negative mg/dL (0.0-1.0); WBC,Urine 32 /hpf (0-5)
[2024-10-18] VITALS (26 sets, daily range): BP systolic 102–140; BP diastolic 50–80; PULSE 72–89; RESP 12–20; TEMP 35.8–37.8; O2SAT 92–100; BMI 32.4
--- NOTE | 2024-10-18 00:44 | PC.NURSE ---
REPORT CALLED TO МАРИНА PALAFOX AT THIS TIME.
[2024-10-18 05:26] LABS: Basophils % (Auto) 0 % (0-2.5); Eosinophils # (Auto) 0.1 Thou/mm3 (0.0-0.5); Eosinophils % (Auto) 1 % (0-10); Hematocrit 34.5 % (36.0-46.0); Hemoglobin 11.2 g/dL (12.0-16.0); Immature Granulocytes % (Auto) 1 % (0-0); Immature Granulocytes Auto 0.03 Thou/mm3 (0.00-0.00); Lymphocytes # (Auto) 0.7 Thou/mm3 (1.0-4.8); Lymphocytes % (Auto) 13 % (10-50); Mean Corpuscular HGB Conc 32.5 g/dl (31.0-37.0); Mean Corpuscular Hemoglobin 33.8 pg (25.0-35.0); Mean Corpuscular Volume 104 fL (80-100); Monocytes # (Auto) 0.5 Thou/mm3 (0.0-0.8); Monocytes % (Auto) 10 % (0-12); Neutrophils # (Auto) 3.9 Thou/mm3 (1.8-7.7); Neutrophils % (Auto) 75 % (37-80); Nucleated Red Blood Cell % 0 /100 WBC (0); Platelet Count 144 Thou/mm3 (140-440); RDW Standard Deviation 58.2 fL (36.4-46.3); Red Blood Count 3.31 Miln/mm3 (4.00-5.20); White Blood Count 5.2 Thou/mm3 (3.6-11.0)
[2024-10-18 05:54] LABS: Glucose Estimated Average 108 mg/dL (80-131); Hemoglobin A1C 5.4 % Hgb (4.8-6.0)
[2024-10-18 06:15] LABS: Alanine Aminotransferase 18 U/L (10-49); Albumin, Serum 3.6 gm/dL (3.4-4.8); Albumin/Globulin Ratio 1.4 (1.2-2.2); Alkaline Phosphatase 250 U/L (46-116); Anion Gap 11 (7-16); Aspartate Amino Transferase 46 U/L (0-34); BUN/Creatinine Ratio 5 Ratio (12-20); Bilirubin,Total < 0.2 mg/dL (0.3-1.2); Blood Urea Nitrogen 17 mg/dL (9-23); Calcium 7.8 mg/dL (8.3-10.6); Calcium (Corrected) 8.1 mg/dL (8.5-10.1); Carbon Dioxide 27.8 mMol/L (20.0-31.0); Cardiac Risk Estimate 3.3 RATIO (3.7-5.6); Chloride 99 mMol/L (98-107); Cholesterol 97 mg/dL (132-200); Creatinine (Component) 3.3 mg/dL (0.6-1.3); Estimated Creatinine Clearance 14.4 mL/min (>60); Globulin 2.5 gm/dL (2.3-3.5); Glucose 252 mg/dL (74-106); HDL Cholesterol 29 mg/dL (40-60); LDL Cholesterol,Calculated 36 mg/dL (0-130); Osmolality,Calculated 286 (275-295); Phosphorous 3.4 mg/dL (2.4-5.1); Potassium 5.3 mMol/L (3.4-5.1); Sodium 138 mMol/L (136-145); Total Protein 6.1 gm/dL (5.7-8.2); Triglycerides 160 mg/dL (30-150); eGFR 15 See Note
[2024-10-18] MEDS: oxyCODONE/APAP 5/325 TABLET 1 TAB PO (06:26)
[2024-10-18] MEDS: INSULIN LISPRO (AdmeLOG) 1 UNIT/0.01 ML UNIT SC ×3 (07:16→16:15)
--- NOTE | 2024-10-18 11:38 | PD.RESPRO ---
Documentation for date of: 10/18/24 Subjective Subjective Interval history: No acute overnight events. Seen and examined at bedside after dialysis and rapid response was called for chest pain. States that she has had chest discomfort in the past after her dialysis sessions. She described it as epigastric, pressure-like, and does not radiate to her arms/neck/back but no shortness of breath. Vital signs stable, MAP > 65, O2 94% on 2 L NC. Ordered EKG, troponins, and maalox as suspect component of reflux. Blood sugars also noted to be elevated in low 200s and increased SSI scale. Currently awaiting echo and further recommendations from nephrology. Exam Vital Signs Temp Pulse Resp BP Pulse Ox O2 Del Method O2 Flow Rate 97.5 F 76 18 119/61 95 Nasal Cannula 2 10/18/24 10:55 10/18/24 11:15 10/18/24 10:55 10/18/24 11:15 10/18/24 10:55 10/18/24 08:00 10/18/24 10:55 Narrative Exam General: AOx3, mild distress, able to speak in full sentences HEENT: NC/AT, mucous membranes moist, bilateral sclera anicteric Cardiovascular: regular rate and rhythm, S1/S2 present, no murmurs appreciated Pulmonary: lungs clear to auscultation bilaterally, on 2 L NC saturating 94%, no accessory muscle use Abdominal: obese, soft, non-tender, non-distended, no rebound/guarding Musculoskeletal: bilateral lower extremity pitting edema (1+ RLE, 2+ LLE), normal ROM Skin: fistula in RUE, warm and dry, intact, no rashes Neuro: CN II-XII intact, no focal deficits Objective Labs 10/19/24 04:56 10/19/24 04:56 Labs: Laboratory Results - last 24 hr 10/17/24 10/17/24 10/17/24 12:20 12:21 12:45 WBC 7.3 RBC 3.31 L Hgb 11.5 L Hct 34.0 L MCV 103 H MCH 34.7 MCHC 33.8 RDW Std Deviation 57.2 H Plt Count 144 Neut % (Auto) 81 H Lymph % (Auto) 11 [place] % (Auto) 7 Eos % (Auto) 1 Baso % (Auto) 0 Neut # (Auto) 5.9 Lymph # (Auto) 0.8 L [place] # (Auto) 0.5 Eos # (Auto) 0.1 Baso # (Auto) 0.0 Immature Gran # (Auto) 0.03 H Absolute Nucleated RBC 0.00 Immature Gran % 0 Nucleated RBC % 0 ESR 41 H PT 11.5 INR 1.1 APTT 31.9 Sodium 136 Potassium 5.2 H Chloride 94 L Carbon Dioxide 31.2 H Anion Gap 11 BUN 30 H Creatinine 4.1 H* Estim Creat Clear Calc 12.0 L eGFR 12 L* BUN/Creatinine Ratio 7 L Glucose [address] Glu mg/dL Hemoglobin A1c Calculated Osmolality 283 Lactic Acid 0.8 Calcium 8.0 L Corrected Calcium 8.0 L Phosphorus Magnesium 2.2 Total Bilirubin < 0.2 L AST 39 H ALT 19 Alkaline Phosphatase 265 H Troponin I < 0.020 B-Natriuretic Peptide 673 H* Total Protein 6.5 Albumin 4.0 Globulin 2.5 Albumin/Globulin Ratio 1.6 Triglycerides Cholesterol LDL Cholesterol, Calc HDL Cholesterol Cholesterol/HDL Ratio Procalcitonin 1.24 H Ur Collection Type Urine Color Urine Clarity Urine pH Ur Specific [place] Urine Protein Urine Glucose (UA) Urine Ketones Urine Blood Urine Nitrite Urine Bilirubin Urine Urobilinogen (Auto) Ur Leukocyte Esterase Urine RBC Urine WBC Ur Squamous Epith Cells Urine Bacteria RSV Rapid Negative 10/17/24 10/18/24 20:57 04:52 WBC 5.2 RBC 3.31 L Hgb 11.2 L Hct 34.5 L MCV 104 H MCH 33.8 MCHC 32.5 RDW Std Deviation 58.2 H Plt Count 144 Neut % (Auto) 75 Lymph % (Auto) 13 [place] % (Auto) 10 Eos % (Auto) 1 Baso % (Auto) 0 Neut # (Auto) 3.9 Lymph # (Auto) 0.7 L [place] # (Auto) 0.5 Eos # (Auto) 0.1 Baso # (Auto) 0.0 Immature Gran # (Auto) 0.03 H Absolute Nucleated RBC 0.00 Immature Gran % 1 H Nucleated RBC % 0 ESR PT INR APTT Sodium 138 Potassium 5.3 H Chloride 99 Carbon Dioxide 27.8 Anion Gap 11 BUN 17 Creatinine 3.3 H D Estim Creat Clear Calc 14.4 L eGFR 15 L BUN/Creatinine Ratio 5 L Glucose [address] Glu mg/dL 108 Hemoglobin A1c 5.4 Calculated Osmolality 286 Lactic Acid Calcium 7.8 L Corrected Calcium 8.1 L Phosphorus 3.4 Magnesium 2.0 Total Bilirubin < 0.2 L AST 46 H ALT 18 Alkaline Phosphatase 250 H Troponin I B-Natriuretic Peptide Total Protein 6.1 Albumin 3.6 Globulin 2.5 Albumin/Globulin Ratio 1.4 Triglycerides 160 H Cholesterol 97 L LDL Cholesterol, Calc 36 HDL Cholesterol 29 L Cholesterol/HDL Ratio 3.3 L Procalcitonin Ur Collection Type Clean Catch Urine Color Yellow Urine Clarity Clear Urine pH 8.0 H Ur Specific [place] 1.022 Urine Protein 2+ A Urine Glucose (UA) Negative Urine Ketones Negative Urine Blood Negative Urine Nitrite Negative Urine Bilirubin Negative Urine Urobilinogen (Auto) Negative Ur Leukocyte Esterase Negative Urine RBC 11 H Urine WBC 32 H Ur Squamous Epith Cells 17 H Urine Bacteria 4+ A RSV Rapid Quality Measures Quality Measures none Assessment & Plan Assessment Current Active Medications: Generic Name Dose Route Start Last Admin Trade Name Freq PRN Reason Stop Dose Admin Acetaminophen 650 mg 10/17/24 14:59 Acetaminophen 325 Mg Tablet PO 11/16/24 14:58 Q6H PRN PAIN 1-3 OR FEVER > 100.4 Albuterol 2.5 mg 10/17/24 14:59 10/17/24 21:00 Albuterol Rt 2.5 Mg/0.5 Ml Nebu INH 11/16/24 14:58 2.5 mg Q2HR PRN Administration SHORTNESS OF BREATH OR WHEEZE Atorvastatin Calcium 40 mg 10/18/24 09:00 10/18/24 08:51 Atorvastatin Calcium 20 Mg Tablet PO 11/17/24 08:59 Not Given QDAY [facility] Azithromycin 500 mg 10/18/24 21:00 Azithromycin 250 Mg Tablet PO 10/24/24 20:59 2100 [facility] Protocol Carvedilol 6.25 mg 10/17/24 21:00 10/18/24 08:51 Carvedilol 3.125 Mg Tablet PO 11/16/24 20:59 Not Given BID WALE Dextrose 25 ml 10/17/24 15:05 Dextrose 50%-Water Inj 50 Ml Syringe IV 11/16/24 15:04 Q15MIN PRN BG 50-70 responsive npo pt Dextrose 50 ml 10/17/24 15:05 Dextrose 50%-Water Inj 50 Ml Syringe IV 11/16/24 15:04 Q15MIN PRN BG <50 OR BG <70 & pt unresponsive Glucagon 1 mg 10/17/24 15:05 Glucagon Inj 1 Mg Vial IM Q15MIN PRN BG <70, and no IV access Heparin Sodium (Porcine) 5,000 unit 10/17/24 21:00 10/18/24 08:51 Heparin Sod Inj 5000 Unit/Ml Vial SC 10/31/24 20:59 Not Given BID [facility] Hydralazine HCl 50 mg 10/17/24 21:00 10/18/24 08:51 Hydralazine Hcl 25 Mg Tablet PO 11/16/24 20:59 Not Given BID [facility] Ceftriaxone Sodium/Dextrose 1 gm in 50 mls @ 100 mls/hr 10/18/24 09:00 10/18/24 08:51 Rocephin/D5w 1gm Iv Premix IV 10/25/24 08:59 Not Given QDAY [facility] Insulin Human Lispro 0 unit 10/18/24 08:01 Insulin Lispro (Admelog) 1 Unit/0.01 Ml Unit SC 11/16/24 16:59 [facility] Protocol Metoclopramide HCl 10 mg 10/17/24 14:59 Metoclopramide 5 Mg Tablet PO 11/16/24 14:58 Q6H PRN NAUSEA OR VOMITING Nifedipine 90 mg 10/17/24 21:00 10/18/24 08:51 Nifedipine Xl 30 Mg Tabcr PO 11/16/24 20:59 Not Given BID [facility] Oxycodone/Acetaminophen 1 tab 10/17/24 14:59 10/18/24 06:26 Oxycodone/Apap 5/325 Tablet PO 10/22/24 14:58 1 tab Q8H PRN Administration PAIN SCALE 4-6 (Moderate Pantoprazole Sodium 40 mg 10/18/24 09:00 10/18/24 08:52 Pantoprazole 40 Mg Tablet PO 11/17/24 08:59 Not Given QDAY [facility] Sertraline HCl 150 mg 10/18/24 09:00 10/18/24 08:52 Sertraline Hcl 25 Mg Tablet PO 11/17/24 08:59 Not Given DAILY [facility] Sodium Chloride 3 ml 10/17/24 14:59 10/17/24 21:00 Sodium Chloride Rt Ni[place]ka 0.9% 3 Ml Nebu INH 11/16/24 14:58 3 ml PRN PRN Administration SOLN Plan Donna Mansoor is a 59-year-old female with a past medical history of ESRD on HD // (follows Dr. Cortes), hypertension, hyperlipidemia, type 2 diabetes mellitus, asthma, GERD, and depression who is admitted for AHRF secondary to community acquired pneumonia and requiring extra session of hemodialysis. #AHRF, likely secondary to CAP versus new onset CHF versus fluid overload from ESRD Presents with shortness of breath and associated fever, chills, and productive cough for the last 4 to 5 days. States that she has had sick contacts at home. On admission, temperature at 100.1 ?F and saturating 74% on room air. CXR showed vascular congestion but no signs of pneumonia. No leukocytosis but ESR and Pro-Aj elevated. Flu, COVID, RSV negative. Although abnormal liver function, known to have ESRD so no signs of endorgan damage (lactate normal, T. bili normal). In ED, received ceftriaxone and doxycycline x 1 on 10/17. ? Ceftriaxone (10/17-) and azithromycin (10/18-) ? Follow-up blood culture ? Follow-up sputum culture ? Supplemental oxygen as needed; may need to be discharged with home O2 #ESRD on HD // #Hyperkalemia #Hypocalcemia Follows Dr. Cortes outpatient. ? Nephrology consulted, appreciate recommendations ? Avoid nephrotoxic agents when possible ? Renally dose medications #? New onset CHF #Atypical chest pain Endorses orthopnea, PND, bilateral lower extremity edema. BNP elevated at 673, troponin negative. Given the patient is ESRD and produces very little urine, unable to obtain accurate I's and O's or diurese. ? Follow-up echo ? Dialysis for fluid control per nephrology ? Follow-up troponins #Hypertension ? Carvedilol 6.25 mg p.o. twice daily ? Hydralazine 50 mg p.o. twice daily ? Nifedipine 60 mg p.o. twice daily #Hyperlipidemia ? Atorvastatin 40 mg p.o. daily #Type 2 diabetes mellitus A1c 5.4%. ? SSI, Accu-Cheks ACHS ? Hypoglycemic protocol in place #Asthma ? Albuterol 2.5 mg every 4 hours as needed #GERD ? Pantoprazole 40 mg p.o. daily #Depression ? Sertraline 150 mg p.o. daily Hospital management: Disposition: AHRF 2/2 CAP on IV antibiotics, possible new onset CHF, hemodialysis Diet: renal panel Lines: PIV DVT prophylaxis: heparin SC BID GI prophylaxis: pantoprazole 40 mg p.o. daily CODE STATUS: DNR ----- Plan discussed with attending physician Dr. Byron Monet MD PGY-1 Internal Medicine Attending Provider Attestation/Addendum I attest that I was physically present for the evaluation, physical examination, lab and imaging review of the patient with the residents. I discussed the case with the residents and agree with the findings and plans of care as documented above. Driss Matthews MD
--- NOTE | 2024-10-18 11:43 | ESPR_ITS ---
Documentation for date of: 10/18/24 Subjective Subjective Interval history: Ms. Rivero is a 58-year-old lady who is well-known to me from my renal clinic with extensive past medical history of hypertension, diabetes mellitus, hyperlipidemia, asthma, GERD, end-stage renal disease on dialysis MWF, presented to the ED due to significant shortness of breath and fluid overload. Patient has been noncompliant with her fluids and has been drinking significant amount of fluids. Unable to do extra dialysis sessions, unable to pull more fluid per session. In the ED she was noted to have 23+ edema with hypoxic respiratory failure. Patient admitted to telemetry and renal consultation requested for need for emergency dialysis. Home medications: Atorvastatin, calcium, carvedilol 6.25, glipizide 5 mg, hydralazine 50 mg 3 times daily, insulin glargine, nifedipine 90 milligram p.o. twice daily ED course: Blood pressure 131/61, heart rate 77. WBC 7.3, hemoglobin 11.5, platelets 144. Coags normal. Chemistries sodium 136, potassium 5.2, BUN 30, creatinine 4.1, GFR 12, blood sugar 193, calcium 8.0, AST 39, ALT 265, BNP 693, albumin 4, lipids normal, Pro-Aj 1.24 urinalysis shows 2+ protein with 4+ bacteria. RSV negative. Chest x-ray showed moderate vascular congestion. Patient admitted to telemetry. Nephrology consultation requested for need for dialysis. 10/18/2024 patient currently seen on dialysis. Denies any chest pain. Still having some shortness of breath. No nausea, vomiting. Decreased appetite. Review of Systems Review of Systems Narrative Review of Systems: CONSTITUTIONAL: Patient denies any fever, chills. HEENT: Denies any visual disturbances or hearing problems. CARDIOVASCULAR: Patient denies any chest pain c/o shortness of breath, swelling in the lower extremities. PULMONARY: Patient c/o shortness of breath, cough. GASTROINTESTINAL: Patient denies any abdominal pain, constipation, nausea, vomiting, diarrhea. GENITOURINARY: Patient denies any urinary symptoms of burning or frequency or hematuria, denies any form in the urine. SKIN: Denies any rash. MUSCULOSKELETAL: complaining of gait imbalance NEUROLOGICAL: Denies any neurological problems of strokes, seizures or confusion. Denies any memory problems. PSYCHIATRIC: Denies any depression or anxiety. LYMPHATICS : No lymphadenopathy Exam Vital Signs Temp Pulse Resp BP Pulse Ox O2 Del Method O2 Flow Rate 36.4 C 76 18 119/61 95 Nasal Cannula 2 10/18/24 10:55 10/18/24 11:15 10/18/24 10:55 10/18/24 11:15 10/18/24 10:55 10/18/24 08:00 10/18/24 10:55 Narrative Exam GENERAL APPEARANCE: Patient very short of breath. Currently on dialysis. NECK: Neck supple, no JVD or bruit CARDIOVASCULAR: Heart regular, no murmurs LUNGS/CHEST: Decreased breath sounds/crackles at the bases ABDOMEN: Soft, nontender, nondistended. No masses. Normal bowel sounds. EXTREMITIES: 3+ edema noted in the lower extremities SKIN: Skin exam normal without any rashes MUSCULOSKELETAL: in bed PSYCHIATRIC: Normal mood, affect LYMPHATICS: No lymphadenopathy noted NEUROLOGICAL : No neurological deficits Objective Labs 10/19/24 04:56 10/19/24 04:56 Labs: Laboratory Results - last 24 hr 10/17/24 10/17/24 10/17/24 12:20 12:21 12:45 WBC 7.3 RBC 3.31 L Hgb 11.5 L Hct 34.0 L MCV 103 H MCH 34.7 MCHC 33.8 RDW Std Deviation 57.2 H Plt Count 144 Neut % (Auto) 81 H Lymph % (Auto) 11 [place] % (Auto) 7 Eos % (Auto) 1 Baso % (Auto) 0 Neut # (Auto) 5.9 Lymph # (Auto) 0.8 L [place] # (Auto) 0.5 Eos # (Auto) 0.1 Baso # (Auto) 0.0 Immature Gran # (Auto) 0.03 H Absolute Nucleated RBC 0.00 Immature Gran % 0 Nucleated RBC % 0 ESR 41 H PT 11.5 INR 1.1 APTT 31.9 Sodium 136 Potassium 5.2 H Chloride 94 L Carbon Dioxide 31.2 H Anion Gap 11 BUN 30 H Creatinine 4.1 H* Estim Creat Clear Calc 12.0 L eGFR 12 L* BUN/Creatinine Ratio 7 L Glucose [address] Glu mg/dL Hemoglobin A1c Calculated Osmolality 283 Lactic Acid 0.8 Calcium 8.0 L Corrected Calcium 8.0 L Phosphorus Magnesium 2.2 Total Bilirubin < 0.2 L AST 39 H ALT 19 Alkaline Phosphatase 265 H Troponin I < 0.020 B-Natriuretic Peptide 673 H* Total Protein 6.5 Albumin 4.0 Globulin 2.5 Albumin/Globulin Ratio 1.6 Triglycerides Cholesterol LDL Cholesterol, Calc HDL Cholesterol Cholesterol/HDL Ratio Procalcitonin 1.24 H Ur Collection Type Urine Color Urine Clarity Urine pH Ur Specific [place] Urine Protein Urine Glucose (UA) Urine Ketones Urine Blood Urine Nitrite Urine Bilirubin Urine Urobilinogen (Auto) Ur Leukocyte Esterase Urine RBC Urine WBC Ur Squamous Epith Cells Urine Bacteria RSV Rapid Negative 10/17/24 10/18/24 20:57 04:52 WBC 5.2 RBC 3.31 L Hgb 11.2 L Hct 34.5 L MCV 104 H MCH 33.8 MCHC 32.5 RDW Std Deviation 58.2 H Plt Count 144 Neut % (Auto) 75 Lymph % (Auto) 13 [place] % (Auto) 10 Eos % (Auto) 1 Baso % (Auto) 0 Neut # (Auto) 3.9 Lymph # (Auto) 0.7 L [place] # (Auto) 0.5 Eos # (Auto) 0.1 Baso # (Auto) 0.0 Immature Gran # (Auto) 0.03 H Absolute Nucleated RBC 0.00 Immature Gran % 1 H Nucleated RBC % 0 ESR PT INR APTT Sodium 138 Potassium 5.3 H Chloride 99 Carbon Dioxide 27.8 Anion Gap 11 BUN 17 Creatinine 3.3 H D Estim Creat Clear Calc 14.4 L eGFR 15 L BUN/Creatinine Ratio 5 L Glucose [address] Glu mg/dL 108 Hemoglobin A1c 5.4 Calculated Osmolality 286 Lactic Acid Calcium 7.8 L Corrected Calcium 8.1 L Phosphorus 3.4 Magnesium 2.0 Total Bilirubin < 0.2 L AST 46 H ALT 18 Alkaline Phosphatase 250 H Troponin I B-Natriuretic Peptide Total Protein 6.1 Albumin 3.6 Globulin 2.5 Albumin/Globulin Ratio 1.4 Triglycerides 160 H Cholesterol 97 L LDL Cholesterol, Calc 36 HDL Cholesterol 29 L Cholesterol/HDL Ratio 3.3 L Procalcitonin Ur Collection Type Clean Catch Urine Color Yellow Urine Clarity Clear Urine pH 8.0 H Ur Specific [place] 1.022 Urine Protein 2+ A Urine Glucose (UA) Negative Urine Ketones Negative Urine Blood Negative Urine Nitrite Negative Urine Bilirubin Negative Urine Urobilinogen (Auto) Negative Ur Leukocyte Esterase Negative Urine RBC 11 H Urine WBC 32 H Ur Squamous Epith Cells 17 H Urine Bacteria 4+ A RSV Rapid Assessment & Plan Assessment and plan (1) End stage renal failure on dialysis: Status: Acute Assessment and plan: 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 Patient currently on Monday, Monday, Monday dialysis. Patient currently seen on dialysis. Tolerating dialysis without any problems. Hemodialysis for 3 hours, 2K, ultrafiltration 2-3 L, Epogen 6000, no heparin ordered. Plan of care discussed with the dialysis nurse. Please see dialysis flowsheet for further details. Patient will need extra session tomorrow (2) Hypertension: Status: Acute Assessment and plan: Continue with home blood pressure medications (3) Diabetes: Status: Acute Assessment and plan: Accu-Chek, sliding scale, diabetic diet. (4) Congestive heart failure: Status: Acute Assessment and plan: Currently on dialysis (5) Acute hypoxemic respiratory failure: Status: Acute Assessment and plan: Secondary to fluid overload (6) Anemia of chronic disease: Status: Acute Assessment and plan: Epogen with dialysis (7) Elevated LFTs: Status: Acute Assessment and plan: Passive liver congestion Additional Assessment & Plan Additional Plan: Thank you Driss for allowing me to participate in the care of Ms. Rivero
--- NOTE | 2024-10-18 12:09 | EKG_ITS ---
[facility] Test Date: 2024-10-18 Pat Name: HENRIQUE MAJANO [facility] Buyer Intern: YOLANDA : 1965 Requested By: Jermaine Bravo Order Number: [id number] Reading MD: Jermaine Bravo Measurements Intervals [place] Rate: 76 P: 28 OR: 200 QRS: 73 QRSD: 109 T: 11 QT: 423 QTc: 478 Interpretive Statements SINUS RHYTHM LOW QRS VOLTAGE IN PRECORDIAL LEADS INCOMPLETE RIGHT BUNDLE BRANCH BLOCK Compared to ECG 10/17/2024 12:17:45 Low QRS voltage now present /store/S0/[id number].pdf
[2024-10-18] MEDS: MG HYD/AL HYD/SIME (Maalox Reg) SUSP 30 ML UDC PO (12:18)
--- NOTE | 2024-10-18 12:26 | PD.RESEVENT ---
Documentation for date of: 10/18/24 Event Note Event Note: Rapid response was called for chest discomfort after dialysis. States that she has had chest discomfort in the past after her dialysis sessions. She described it as epigastric, pressure-like, and does not radiate to her arms/neck/back and no shortness of breath. Vital signs stable, MAP > 65, O2 94% on 2 L NC. Ordered EKG, troponins, and maalox as suspect component of reflux. EKG showed incomplete RBBB, which was present prior and troponins negative. ----- Plan discussed with attending physician Dr. Byron Monet MD PGY-1 Internal Medicine
--- NOTE | 2024-10-18 12:52 | PC.SS ---
Donna Benitez is a 59-year-old female admitted to [facility] for [facility] Hemodialysis. SS conducted over the phone contact with pt daughter Donna Read [phone], role and reason was explained. Donna confirmed pts demographics. Donna reports the pt lives with her. Pt is independent with all ADLs. Pt possesses a wheelchair, walker and cane at home but primarily uses a cane. Pt is on Hemodialysis, MWF-0530am, Dr[facility]. Pts PCP is Dr. Macdonald at [facility] last visit was last month. DC options discussed and Donna wishes for pt to return home. Donna will provide transportation on behalf of the pt. No further needs identified, SS will remain available. DC plan: Home PCP: Dr. Macdonald (Last visit 1 month ago) DM: Dtr, Donna Taylor
--- NOTE | 2024-10-18 12:57 | PC.SS ---
Rounding: Pending Echo, nephro on board, on IV ABX, may need home O2 upon DC
[2024-10-18 13:18] LABS: Troponin I < 0.020 ng/mL (0.0-0.045)
[2024-10-18] MEDS: ALBUTEROL RT 2.5 MG/0.5 ML NEBU INH (20:03)
[2024-10-18] MEDS: SODIUM CHLORIDE RT SOL 0.9% 3 ML NEBU INH (20:03)
[2024-10-18] MEDS: carVEDILOL 3.125 MG TABLET 6.25 MG PO (20:12)
[2024-10-18] MEDS: METOCLOPRAMIDE 5 MG TABLET PO (20:12)
[2024-10-18] MEDS: HEPARIN SOD INJ 5000 UNIT/ML VIAL SC (20:12)
[2024-10-18] MEDS: AZITHROMYCIN 250 MG TABLET 500 MG PO (20:12)
[2024-10-18] MEDS: NIFEdipine XL 30 MG TABCR 90 MG PO (20:12)
[2024-10-18] MEDS: hydrALAZINE HCL 25 MG TABLET 50 MG PO (20:12)
[2024-10-18] MEDS: INSULIN GLARGINE (Lantus) 5 UNIT/0.05 ML (PER 5 UNITS) 15 UNIT SC (21:09)
[2024-10-19] VITALS (28 sets, daily range): BP systolic 107–143; BP diastolic 54–76; PULSE 69–84; RESP 11–31; TEMP 36.1–36.8; O2SAT 93–99; BMI 32.4; BMI 32.3
[2024-10-19] MEDS: guaiFENesin/P-EPHED TABLET 1 TAB PO (05:11)
[2024-10-19 06:10] LABS: Basophils % (Auto) 1 % (0-2.5); Eosinophils # (Auto) 0.2 Thou/mm3 (0.0-0.5); Eosinophils % (Auto) 3 % (0-10); Hematocrit 33.4 % (36.0-46.0); Immature Granulocytes % (Auto) 1 % (0-0); Immature Granulocytes Auto 0.03 Thou/mm3 (0.00-0.00); Lymphocytes # (Auto) 0.9 Thou/mm3 (1.0-4.8); Lymphocytes % (Auto) 15 % (10-50); Mean Corpuscular HGB Conc 32.9 g/dl (31.0-37.0); Mean Corpuscular Hemoglobin 34.6 pg (25.0-35.0); Mean Corpuscular Volume 105 fL (80-100); Monocytes # (Auto) 0.5 Thou/mm3 (0.0-0.8); Monocytes % (Auto) 8 % (0-12); Neutrophils # (Auto) 4.3 Thou/mm3 (1.8-7.7); Neutrophils % (Auto) 73 % (37-80); Nucleated Red Blood Cell % 0 /100 WBC (0); Platelet Count 140 Thou/mm3 (140-440); RDW Standard Deviation 57.7 fL (36.4-46.3); Red Blood Count 3.18 Miln/mm3 (4.00-5.20); White Blood Count 5.9 Thou/mm3 (3.6-11.0)
[2024-10-19 06:37] LABS: Alanine Aminotransferase 21 U/L (10-49); Albumin, Serum 3.5 gm/dL (3.4-4.8); Albumin/Globulin Ratio 1.5 (1.2-2.2); Alkaline Phosphatase 256 U/L (46-116); Anion Gap 12 (7-16); Aspartate Amino Transferase 44 U/L (0-34); BUN/Creatinine Ratio 10 Ratio (12-20); Bilirubin,Total < 0.2 mg/dL (0.3-1.2); Blood Urea Nitrogen 42 mg/dL (9-23); Calcium 7.7 mg/dL (8.3-10.6); Calcium (Corrected) 8.1 mg/dL (8.5-10.1); Chloride 97 mMol/L (98-107); Creatinine (Component) 4.4 mg/dL (0.6-1.3); Estimated Creatinine Clearance 10.8 mL/min (>60); Globulin 2.4 gm/dL (2.3-3.5); Glucose 174 mg/dL (74-106); Magnesium 2.1 mg/dL (1.6-2.6); Osmolality,Calculated 292 (275-295); Phosphorous 3.6 mg/dL (2.4-5.1); Potassium 5.7 mMol/L (3.4-5.1); Sodium 139 mMol/L (136-145); Total Protein 5.9 gm/dL (5.7-8.2); eGFR 11 See Note
[2024-10-19] MEDS: INSULIN LISPRO (AdmeLOG) 1 UNIT/0.01 ML UNIT SC (07:31)
[2024-10-19] MEDS: INSULIN GLARGINE (Lantus) 5 UNIT/0.05 ML (PER 5 UNITS) 15 UNIT SC (08:08)
[2024-10-19] MEDS: cefTRIAXone/D5w 1gm IV premix 1 GM/50 ML BAG IV (08:09)
[2024-10-19] MEDS: HEPARIN SOD INJ 5000 UNIT/ML VIAL SC ×2 (08:09→21:14)
[2024-10-19] MEDS: NIFEdipine XL 30 MG TABCR 90 MG PO ×2 (08:10→21:13)
[2024-10-19] MEDS: carVEDILOL 3.125 MG TABLET 6.25 MG PO ×2 (08:10→21:12)
[2024-10-19] MEDS: SERTRALINE HCL 25 MG TABLET 150 MG PO (08:10)
[2024-10-19] MEDS: hydrALAZINE HCL 25 MG TABLET 50 MG PO ×2 (08:11→21:13)
[2024-10-19] MEDS: PANTOPRAZOLE 40 MG TABLET PO (08:11)
[2024-10-19] MEDS: ATORVASTATIN CALCIUM 20 MG TABLET 40 MG PO (08:11)
--- NOTE | 2024-10-19 10:21 | PD.RESPRO ---
Documentation for date of: 10/19/24 Exam Vital Signs Temp Pulse Resp BP Pulse Ox O2 Del Method O2 Flow Rate 97.4 F 76 31 H 135/66 H 96 Nasal Cannula 1.5 10/19/24 08:00 10/19/24 08:11 10/19/24 08:00 10/19/24 08:11 10/19/24 08:00 10/19/24 08:00 10/19/24 08:00 Objective Labs 10/19/24 04:56 10/19/24 04:56 Labs: Laboratory Results - last 24 hr 10/18/24 10/19/24 12:43 04:56 WBC 5.9 RBC 3.18 L Hgb 11.0 L Hct 33.4 L MCV 105 H MCH 34.6 MCHC 32.9 RDW Std Deviation 57.7 H Plt Count 140 Neut % (Auto) 73 Lymph % (Auto) 15 [place] % (Auto) 8 Eos % (Auto) 3 Baso % (Auto) 1 Neut # (Auto) 4.3 Lymph # (Auto) 0.9 L [place] # (Auto) 0.5 Eos # (Auto) 0.2 Baso # (Auto) 0.0 Immature Gran # (Auto) 0.03 H Absolute Nucleated RBC 0.00 Immature Gran % 1 H Nucleated RBC % 0 Sodium 139 Potassium 5.7 H Chloride 97 L Carbon Dioxide 30.0 Anion Gap 12 BUN 42 H Creatinine 4.4 H* D Estim Creat Clear Calc 10.8 L eGFR 11 L* BUN/Creatinine Ratio 10 L Glucose 174 H D Calculated Osmolality 292 Calcium 7.7 L Corrected Calcium 8.1 L Phosphorus 3.6 Magnesium 2.1 Total Bilirubin < 0.2 L AST 44 H ALT 21 Alkaline Phosphatase 256 H Troponin I < 0.020 Total Protein 5.9 Albumin 3.5 Globulin 2.4 Albumin/Globulin Ratio 1.5 Quality Measures Quality Measures none Assessment & Plan Assessment Current Active Medications: Generic Name Dose Route Start Last Admin Trade Name Freq PRN Reason Stop Dose Admin Acetaminophen 650 mg 10/17/24 14:59 Acetaminophen 325 Mg Tablet PO 11/16/24 14:58 Q6H PRN PAIN 1-3 OR FEVER > 100.4 Albuterol 2.5 mg 10/17/24 14:59 10/18/24 20:03 Albuterol Rt 2.5 Mg/0.5 Ml Nebu INH 11/16/24 14:58 2.5 mg Q2HR PRN Administration SHORTNESS OF BREATH OR WHEEZE Atorvastatin Calcium 40 mg 10/18/24 09:00 10/19/24 08:11 Atorvastatin Calcium 20 Mg Tablet PO 11/17/24 08:59 40 mg QDAY WALE Administration Azithromycin 500 mg 10/18/24 21:00 10/18/24 20:12 Azithromycin 250 Mg Tablet PO 10/24/24 20:59 500 mg 2100 WALE Administration Protocol Carvedilol 6.25 mg 10/17/24 21:00 10/19/24 08:10 Carvedilol 3.125 Mg Tablet PO 11/16/24 20:59 6.25 mg BID WALE Administration Dextrose 25 ml 10/17/24 15:05 Dextrose 50%-Water Inj 50 Ml Syringe IV 11/16/24 15:04 Q15MIN PRN BG 50-70 responsive npo pt Dextrose 50 ml 10/17/24 15:05 Dextrose 50%-Water Inj 50 Ml Syringe IV 11/16/24 15:04 Q15MIN PRN BG <50 OR BG <70 & pt unresponsive Glucagon 1 mg 10/17/24 15:05 Glucagon Inj 1 Mg Vial IM Q15MIN PRN BG <70, and no IV access Heparin Sodium (Porcine) 5,000 unit 10/17/24 21:00 10/19/24 08:09 Heparin Sod Inj 5000 Unit/Ml Vial SC 10/31/24 20:59 5,000 unit BID WALE Administration Hydralazine HCl 50 mg 10/17/24 21:00 10/19/24 08:11 Hydralazine Hcl 25 Mg Tablet PO 11/16/24 20:59 50 mg BID WALE Administration Ceftriaxone Sodium/Dextrose 1 gm in 50 mls @ 100 mls/hr 10/18/24 09:00 10/19/24 08:09 Rocephin/D5w 1gm Iv Premix IV 10/25/24 08:59 100 mls/hr QDAY WALE Administration Insulin Glargine 15 unit 10/18/24 21:00 10/19/24 08:08 Insulin Glargine (Lantus) 5 Unit/0.05 Ml (Per 5 Units) SC 11/17/24 20:59 15 unit BID WALE Administration Insulin Human Lispro 0 unit 10/18/24 08:01 10/19/24 07:31 Insulin Lispro (Admelog) 1 Unit/0.01 Ml Unit SC 11/16/24 16:59 2 unit AC WALE Administration Protocol Metoclopramide HCl 5 mg 10/18/24 13:54 10/18/24 20:12 Metoclopramide 5 Mg Tablet PO 11/17/24 13:53 5 mg Q6H PRN Administration NAUSEA OR VOMITING Protocol Nifedipine 90 mg 10/17/24 21:00 10/19/24 08:10 Nifedipine Xl 30 Mg Tabcr PO 11/16/24 20:59 90 mg BID WALE Administration Oxycodone/Acetaminophen 1 tab 10/17/24 14:59 10/18/24 06:26 Oxycodone/Apap 5/325 Tablet PO 10/22/24 14:58 1 tab Q8H PRN Administration PAIN SCALE 4-6 (Moderate Pantoprazole Sodium 40 mg 10/18/24 09:00 10/19/24 08:11 Pantoprazole 40 Mg Tablet PO 11/17/24 08:59 40 mg QDAY WALE Administration Sertraline HCl 150 mg 10/18/24 09:00 10/19/24 08:10 Sertraline Hcl 25 Mg Tablet PO 11/17/24 08:59 150 mg DAILY WALE Administration Sodium Chloride 3 ml 10/17/24 14:59 10/18/24 20:03 Sodium Chloride Rt Niurka 0.9% 3 Ml Nebu INH 11/16/24 14:58 3 ml PRN PRN Administration SOLN
--- NOTE | 2024-10-19 12:12 | PD.RESDS ---
Planned Discharge Date 10/19/24 DS: Providers Provider Date of admission: 10/17/24 14:59 Primary care physician: Miguel Macdonald MD Admitting Provider: Driss Matthews MD Attending Provider on Admission: Driss Matthews MD Consults: 10/17/24 14:14 Consult to Nephrology Stat Comment: ESRD HD Consulting Provider: Jonas Cortes Attending Provider on DC: Adonis Monet MD Discharging Provider: Adonis Monet MD DS: Diagnosis Problem List Completed Was Problem List Reviewed/Reconciled?: Yes Hospital Course Hospital Course Hospital course: Donna Max is a 59-year-old female with a past medical history of ESRD on HD M/W/F (follows Dr. Cortes), hypertension, hyperlipidemia, type 2 diabetes mellitus, asthma, GERD and depression who presents on 10/17 with shortness of breath. Daughter present at bedside to help provide additional history and translate. For the last 4 to 5 days, patient has been experiencing worsening shortness of breath with associated productive cough nonbloody, green-colored sputum, fever, chills, and pleuritic chest discomfort. Daughter states that there have been multiple sick contacts at home but patient was tested and negative for COVID and flu in the ED. Patient has also been experiencing orthopnea, PND, and worsening lower extremity edema. She underwent hemodialysis yesterday with no improvement in her symptoms. Regarding chest discomfort, it is pressure-like, substernal, radiates to the back, not associated with activity, but is tender to palpation and worsens with movement. However, daughter states that patient at baseline becomes dyspneic upon mild exertion and was prescribed home oxygen approximately 2 years ago but has since been taken away for unknown reasons. Does not follow-up with a non destructive testing technician. In ED, initial vitals showed temperature 100.1 ?F, breathing 74% on room air and then placed on 10 L oxy mask eventually titrated down to 2 L NC saturating 96%. RSV, COVID and flu negative as mentioned above. CBC showed macrocytic anemia (chronic), no leukocytosis, ESR elevated at 41, Pro-Aj 1.24, K 5.2, HCO3 31.2, BUN 30, creatinine 4.1, GFR 12, glucose 193, ALP 265, troponins negative, BNP 673. CXR showed vascular congestion but no signs of pneumonia or pulmonary edema. EKG showed NSR with incomplete RBBB with QTc of 483. Given ceftriaxone and doxycycline x 1 in ED as well as x 1 DuoNeb treatment. Admitted for AHRF secondary to community acquired pneumonia and requiring extra session of hemodialysis. She immediately underwent dialysis on day of admission without difficulties. She was also started on ceftriaxone and azithromycin will put him sputum cultures obtained for acquired pneumonia. Given that patient also endorsed some orthopnea and PND with associated bilateral lower extremity edema an echo was ordered for further evaluation of possible new onset CHF asBNP also elevated at 670. Given ESRD status, unable to assess I/O and give diuretics as she produces very little urine. However, throughout hospitalization, patient oxygen requirements remained minimal at 1 L NC and saturatig in high 90s. On last day of admission, spoke to Dr. Cortes who was in agreement that patient will need another session of HD prior to being discharged. Otherwise, cleared from nephorlogy standpoint. Will send on oral augmentin for an additional 3 more days to complete antibiotic course for community acquired pneumonia (blood cultures remained negative after 48 hours, sputum cultures showed no growth). Additionally, will recommend to follow-up closely with PCP in order to follow-up with echo results obtained here while inpatient for further evaluation of possible new onset CHF. Diagnoses during admission: #AHRF, likely secondary to CAP versus new onset CHF versus fluid overload from ESRD #ESRD on HD M// #Hyperkalemia #Hypocalcemia #? New onset CHF #Atypical chest pain #Hypertension #Hyperlipidemia #Type 2 diabetes mellitus #Asthma #GERD #Depression Discharge instructions: ? Take amoxicillin-clavulanate twice per day for three more days to complete your antibiotic course ? Continue taking all other home medications as prescribed ? Follow-up with PCP within 1-2 weeks of discharge to follow-up with echo results from the hospital ? Follow-up with Dr. Cortes within 1-2 weeks of discharge ? Return to ED if symptoms worsen or recur ----- Plan discussed with attending physician Dr. Byron Monet MD PGY-1 Internal Medicine Time Spent with Patient Time attestation: Total time spent providing and/or coordinating discharge services: Time spent: Less than 30 minutes Exam Vital Signs Temp Pulse Resp BP Pulse Ox O2 Del Method O2 Flow Rate 97.4 F 76 31 H 135/66 H 96 Nasal Cannula 1.5 05/24/25 08:00 10/19/24 08:11 10/19/24 08:00 10/19/24 08:11 10/19/24 08:00 10/19/24 08:00 10/19/24 08:00 Narrative Exam General: AOx3, mild distress, able to speak in full sentences HEENT: NC/AT, mucous membranes moist, bilateral sclera anicteric Cardiovascular: regular rate and rhythm, S1/S2 present, no murmurs appreciated Pulmonary: bibasilar crackles appreciated, on 1 L NC saturating 94%, no accessory muscle use Abdominal: obese, soft, non-tender, non-distended, no rebound/guarding Musculoskeletal: bilateral lower extremity pitting edema (trace in RLE, 1+ LLE), normal ROM Skin: fistula in RUE, warm and dry, intact, no rashes Neuro: CN II-XII intact, no focal deficits Discharge Plan Plan Patient Disposition: HOME (Self Care) Care Plan Goals: ? Take amoxicillin-clavulanate twice per day for three more days to complete your antibiotic course ? Continue taking all other home medications as prescribed ? Follow-up with PCP within 1-2 weeks of discharge to follow-up with echo results from the hospital ? Follow-up with Dr. Cortes within 1-2 weeks of discharge ? Return to ED if symptoms worsen or recur Prescriptions/Referrals Prescriptions/Med Rec: New amoxicillin-pot clavulanate 875-125 mg tablet 1 tab PO BID 3 Days Qty: 6 0RF Continued calcium acetate 667 mg Tablet 1,334 mg PO TID Rx Instructions: after every meal glipizide 5 mg Tablet 5 mg PO QDAY atorvastatin 40 mg tablet 40 mg PO QDAY Patient Comments: TOME JAMES TABLETA TODOS LOS D FOR 90 DAYS carvedilol 6.25 mg tablet 6.25 mg PO BID Patient Comments: TOME JAMES TABLETA DOS VECES AL D A nifedipine 90 mg tablet extended release 90 mg PO BID Patient Comments: TOME JAMES TABLETA TODOS LOS D EN EST MELLISSA VAC O FOR 90 DAYS insulin glargine [Basaglar KwikPen U-100 Insulin] 100 unit/mL (3 mL) insulin pen See Rx Instructions .ROUTE .COMPLEX Patient Comments: INYECTE 15 UNIDADES DEBAJO DE LA PIEL EN LA MANANA Y 15 UNIDADES EN LA TARDE Rx Instructions: INYECTE 15 UNIDADES DEBAJO DE LA PIEL EN LA MANANA Y 15 UNIDADES EN LA TARDE hydralazine 50 mg Tablet 50 mg PO TID PRN (Reason: SBP >150) Qty: 90 0RF hydrocodone-acetaminophen 5-325 mg tablet 1 tab PO TID MDD 15mg PRN (Reason: pain) Qty: 18 0RF sertraline 100 mg tablet 150 mg PO DAILY Patient Comments: TAKE 1.5 TABLETS POR V A ORAL TODOS LOS D Referrals: Miguel Macdonald MD [Primary Care Provider] - Patient/Caregiver Discharge Instructions Print Language: Sami Stand Alone Forms: [facility] Award Info., Patient Portal Info Letter Discharge Order Discharge Orders: Discharge (Routine); Ordered 10/19/24 Ordered By: Adonis Monet Quality Discharge Quality Measures VTE prophylaxis MD Attestestation MD Attestation I attest that I was physically present for the evaluation, physical examination, lab and imaging review of the patient with the residents. I discussed the case with the residents and agree with the findings and plans of care as documented above. Driss Matthews MD
--- NOTE | 2024-10-19 13:33 | PD.NEPHPROG ---
Documentation for date of: 10/19/24 Subjective Subjective Interval history: Ms. Rivero is a 58-year-old lady who is well-known to me from my renal clinic with extensive past medical history of hypertension, diabetes mellitus, hyperlipidemia, asthma, GERD, end-stage renal disease on dialysis MWF, presented to the ED due to significant shortness of breath and fluid overload. Patient has been noncompliant with her fluids and has been drinking significant amount of fluids. Unable to do extra dialysis sessions, unable to pull more fluid per session. In the ED she was noted to have 2-3+ edema with hypoxic respiratory failure. Patient admitted to telemetry and renal consultation requested for need for emergency dialysis. Home medications: Atorvastatin, calcium, carvedilol 6.25, glipizide 5 mg, hydralazine 50 mg 3 times daily, insulin glargine, nifedipine 90 milligram p.o. twice daily ED course: Blood pressure 131/61, heart rate 77. WBC 7.3, hemoglobin 11.5, platelets 144. Coags normal. Chemistries sodium 136, potassium 5.2, BUN 30, creatinine 4.1, GFR 12, blood sugar 193, calcium 8.0, AST 39, ALT 265, BNP 693, albumin 4, lipids normal, Pro-Aj 1.24 urinalysis shows 2+ protein with 4+ bacteria. RSV negative. Chest x-ray showed moderate vascular congestion. Patient admitted to telemetry. Nephrology consultation requested for need for dialysis. 10/19/2024 patient currently seen in dialysis. She is still having shortness of breath. Potassium still remains elevated. Spoke to primary team-after dialysis if stable can be discharged. Review of Systems Review of Systems Narrative Review of Systems: CONSTITUTIONAL: Patient denies any fever, chills. HEENT: Denies any visual disturbances or hearing problems. CARDIOVASCULAR: Patient denies any chest pain c/o shortness of breath, swelling in the lower extremities. PULMONARY: Patient c/o shortness of breath, cough. GASTROINTESTINAL: Patient denies any abdominal pain, constipation, nausea, vomiting, diarrhea. GENITOURINARY: Patient denies any urinary symptoms of burning or frequency or hematuria, denies any form in the urine. SKIN: Denies any rash. MUSCULOSKELETAL: complaining of gait imbalance NEUROLOGICAL: Denies any neurological problems of strokes, seizures or confusion. Denies any memory problems. PSYCHIATRIC: Denies any depression or anxiety. LYMPHATICS : No lymphadenopathy Exam Vital Signs Temp Pulse Resp BP Pulse Ox O2 Del Method O2 Flow Rate 36.1 C 74 19 116/60 94 L Nasal Cannula 1.5 10/19/24 12:00 10/19/24 12:00 10/19/24 12:00 10/19/24 12:00 10/19/24 12:00 10/19/24 12:00 10/19/24 12:00 Narrative Exam GENERAL APPEARANCE: Patient very short of breath. Currently on dialysis. NECK: Neck supple, no JVD or bruit CARDIOVASCULAR: Heart regular, no murmurs LUNGS/CHEST: Decreased breath sounds/crackles at the bases ABDOMEN: Soft, nontender, nondistended. No masses. Normal bowel sounds. EXTREMITIES: 3+ edema noted in the lower extremities SKIN: Skin exam normal without any rashes MUSCULOSKELETAL: in bed PSYCHIATRIC: Normal mood, affect LYMPHATICS: No lymphadenopathy noted NEUROLOGICAL : No neurological deficits Objective Labs 10/19/24 04:56 10/19/24 04:56 Labs: Laboratory Results - last 24 hr 10/19/24 04:56 WBC 5.9 RBC 3.18 L Hgb 11.0 L Hct 33.4 L MCV 105 H MCH 34.6 MCHC 32.9 RDW Std Deviation 57.7 H Plt Count 140 Neut % (Auto) 73 Lymph % (Auto) 15 [place] % (Auto) 8 Eos % (Auto) 3 Baso % (Auto) 1 Neut # (Auto) 4.3 Lymph # (Auto) 0.9 L [place] # (Auto) 0.5 Eos # (Auto) 0.2 Baso # (Auto) 0.0 Immature Gran # (Auto) 0.03 H Absolute Nucleated RBC 0.00 Immature Gran % 1 H Nucleated RBC % 0 Sodium 139 Potassium 5.7 H Chloride 97 L Carbon Dioxide 30.0 Anion Gap 12 BUN 42 H Creatinine 4.4 H* D Estim Creat Clear Calc 10.8 L eGFR 11 L* BUN/Creatinine Ratio 10 L Glucose 174 H D Calculated Osmolality 292 Calcium 7.7 L Corrected Calcium 8.1 L Phosphorus 3.6 Magnesium 2.1 Total Bilirubin < 0.2 L AST 44 H ALT 21 Alkaline Phosphatase 256 H Total Protein 5.9 Albumin 3.5 Globulin 2.4 Albumin/Globulin Ratio 1.5 Assessment & Plan Assessment and plan (1) End stage renal failure on dialysis: Status: Acute Assessment and plan: 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 Patient currently on Monday, Monday, Monday dialysis. Patient currently seen on dialysis. Tolerating dialysis without any problems. Hemodialysis for 3 hours, 2K, ultrafiltration 2-3 L, Epogen 6000, no heparin ordered. Plan of care discussed with the dialysis nurse. Please see dialysis flowsheet for further details. Patient can be discharged postdialysis. (2) Hypertension: Status: Acute Assessment and plan: Continue with home blood pressure medications (3) Diabetes: Status: Acute Assessment and plan: Accu-Chek, sliding scale, diabetic diet. (4) Congestive heart failure: Status: Acute Assessment and plan: Currently on dialysis (5) Acute hypoxemic respiratory failure: Status: Acute Assessment and plan: Secondary to fluid overload (6) Anemia of chronic disease: Status: Acute Assessment and plan: Epogen with dialysis (7) Elevated LFTs: Status: Acute Assessment and plan: Passive liver congestion Additional Assessment & Plan Additional Plan: Thank you Driss for allowing me to participate in the care of Ms. Rivero
--- NOTE | 2024-10-19 14:44 | PC.NURSE ---
Discharge pending dialysis
--- NOTE | 2024-10-19 20:00 | PC.NURSE ---
called Dr. Portillo regarding patient's pending discharge. Patient currently on 2L O2 sat 97%, trial to ween off patient of O2 does well on 1L sat 95%, tried to have patient off of it completely but patient desat lowest to 79%. Patient not c/o SOB, or chest pain. Talked with patient and daughter, states patient used to have an oxygen machine at home but was taken away and has not been using oxygen for a while at home. Per patient, no one told her about needing to use O2 at home and that home O2 was not set up. educated patient about need of O2 when she does discharge, patient and daughter agrees. Per MD to cancel DC for tonight and pending DC for day team tomorrow 10/20/24.
[2024-10-19] MEDS: AZITHROMYCIN 250 MG TABLET 500 MG PO (21:11)
[2024-10-20] VITALS (7 sets, daily range): BP systolic 107–119; BP diastolic 57–69; PULSE 71–83; RESP 15–21; TEMP 36.1–36.4; O2SAT 93–97; BMI 32.3
[2024-10-20 05:53] LABS: Basophils % (Auto) 1 % (0-2.5); Eosinophils # (Auto) 0.1 Thou/mm3 (0.0-0.5); Eosinophils % (Auto) 2 % (0-10); Hematocrit 31.8 % (36.0-46.0); Hemoglobin 10.5 g/dL (12.0-16.0); Immature Granulocytes % (Auto) 0 % (0-0); Immature Granulocytes Auto 0.02 Thou/mm3 (0.00-0.00); Lymphocytes # (Auto) 0.9 Thou/mm3 (1.0-4.8); Lymphocytes % (Auto) 15 % (10-50); Mean Corpuscular Hemoglobin 33.8 pg (25.0-35.0); Mean Corpuscular Volume 102 fL (80-100); Monocytes # (Auto) 0.4 Thou/mm3 (0.0-0.8); Monocytes % (Auto) 6 % (0-12); Neutrophils # (Auto) 4.3 Thou/mm3 (1.8-7.7); Neutrophils % (Auto) 76 % (37-80); Nucleated Red Blood Cell % 0 /100 WBC (0); Platelet Count 129 Thou/mm3 (140-440); RDW Standard Deviation 55.8 fL (36.4-46.3); Red Blood Count 3.11 Miln/mm3 (4.00-5.20); White Blood Count 5.7 Thou/mm3 (3.6-11.0)
[2024-10-20 06:40] LABS: Alanine Aminotransferase 29 U/L (10-49); Albumin, Serum 3.6 gm/dL (3.4-4.8); Albumin/Globulin Ratio 1.5 (1.2-2.2); Alkaline Phosphatase 253 U/L (46-116); Anion Gap 11 (7-16); Aspartate Amino Transferase 49 U/L (0-34); BUN/Creatinine Ratio 7 Ratio (12-20); Bilirubin,Total 0.2 mg/dL (0.3-1.2); Blood Urea Nitrogen 24 mg/dL (9-23); Calcium 8.1 mg/dL (8.3-10.6); Calcium (Corrected) 8.4 mg/dL (8.5-10.1); Carbon Dioxide 29.1 mMol/L (20.0-31.0); Chloride 98 mMol/L (98-107); Creatinine (Component) 3.4 mg/dL (0.6-1.3); Globulin 2.4 gm/dL (2.3-3.5); Glucose 93 mg/dL (74-106); Osmolality,Calculated 279 (275-295); Phosphorous 3.7 mg/dL (2.4-5.1); Potassium 4.8 mMol/L (3.4-5.1); Sodium 138 mMol/L (136-145); eGFR 15 See Note
--- NOTE | 2024-10-20 08:51 | PC.SS ---
Addendum entered by Marley Carmona 10/20/24 09:53: [facility] has accepted DME order and will deliver oxygen at bedside, 10/20/24 by 1200. RN Ralph and patient informed of ETA for bedside delivery. Original Note: DME oxygen order submitted via [employer] to DME companies: [employer], [facility], [employer], [facility], [facility], and [facility]. Responses pending.
[2024-10-20] MEDS: SERTRALINE HCL 25 MG TABLET 150 MG PO (09:01)
[2024-10-20] MEDS: hydrALAZINE HCL 25 MG TABLET 50 MG PO (09:01)
[2024-10-20] MEDS: NIFEdipine XL 30 MG TABCR 90 MG PO (09:01)
[2024-10-20] MEDS: ATORVASTATIN CALCIUM 20 MG TABLET 40 MG PO (09:02)
[2024-10-20] MEDS: carVEDILOL 3.125 MG TABLET 6.25 MG PO (09:02)
[2024-10-20] MEDS: PANTOPRAZOLE 40 MG TABLET PO (09:02)
[2024-10-20] MEDS: cefTRIAXone/D5w 1gm IV premix 1 GM/50 ML BAG IV (09:02)
[2024-10-20] MEDS: HEPARIN SOD INJ 5000 UNIT/ML VIAL SC (09:03)
--- NOTE | 2024-10-20 09:49 | PD.NEPHPROG ---
Documentation for date of: 10/20/24 Subjective Subjective Interval history: Ms. Rivero is a 58-year-old lady who is well-known to me from my renal clinic with extensive past medical history of hypertension, diabetes mellitus, hyperlipidemia, asthma, GERD, end-stage renal disease on dialysis MWF, presented to the ED due to significant shortness of breath and fluid overload. Patient has been noncompliant with her fluids and has been drinking significant amount of fluids. Unable to do extra dialysis sessions, unable to pull more fluid per session. In the ED she was noted to have 2-3+ edema with hypoxic respiratory failure. Patient admitted to telemetry and renal consultation requested for need for emergency dialysis. Home medications: Atorvastatin, calcium, carvedilol 6.25, glipizide 5 mg, hydralazine 50 mg 3 times daily, insulin glargine, nifedipine 90 milligram p.o. twice daily ED course: Blood pressure 131/61, heart rate 77. WBC 7.3, hemoglobin 11.5, platelets 144. Coags normal. Chemistries sodium 136, potassium 5.2, BUN 30, creatinine 4.1, GFR 12, blood sugar 193, calcium 8.0, AST 39, ALT 265, BNP 693, albumin 4, lipids normal, Pro-Aj 1.24 urinalysis shows 2+ protein with 4+ bacteria. RSV negative. Chest x-ray showed moderate vascular congestion. Patient admitted to telemetry. Nephrology consultation requested for need for dialysis. 10/19/2024 patient currently seen in dialysis. She is still having shortness of breath. Potassium still remains elevated. Spoke to primary team-after dialysis if stable can be discharged. 10/20/2024 patient currently seen in medical floor. Resting comfortably. Shortness of breath seems to be better. Did receive extra session yesterday. Next dialysis scheduled for Monday. Renal golden stable for discharge. Review of Systems Review of Systems Narrative Review of Systems: CONSTITUTIONAL: Patient denies any fever, chills. HEENT: Denies any visual disturbances or hearing problems. CARDIOVASCULAR: Patient denies any chest pain c/o shortness of breath, swelling in the lower extremities. PULMONARY: Patient c/o shortness of breath, cough. GASTROINTESTINAL: Patient denies any abdominal pain, constipation, nausea, vomiting, diarrhea. GENITOURINARY: Patient denies any urinary symptoms of burning or frequency or hematuria, denies any form in the urine. SKIN: Denies any rash. MUSCULOSKELETAL: complaining of gait imbalance NEUROLOGICAL: Denies any neurological problems of strokes, seizures or confusion. Denies any memory problems. PSYCHIATRIC: Denies any depression or anxiety. LYMPHATICS : No lymphadenopathy Exam Vital Signs Temp Pulse Resp BP Pulse Ox O2 Del Method O2 Flow Rate 36.4 C 77 21 H 119/69 93 L Nasal Cannula 2 10/20/24 08:00 10/20/24 09:02 10/20/24 08:15 10/20/24 09:02 10/20/24 08:15 10/20/24 08:00 10/20/24 08:15 Narrative Exam GENERAL APPEARANCE: Patient resting comfortably in telemetry NECK: Neck supple, no JVD or bruit CARDIOVASCULAR: Heart regular, no murmurs LUNGS/CHEST: Decreased breath sounds/crackles at the bases ABDOMEN: Soft, nontender, nondistended. No masses. Normal bowel sounds. EXTREMITIES: 1+ edema noted in the lower extremities SKIN: Skin exam normal without any rashes MUSCULOSKELETAL: in bed PSYCHIATRIC: Normal mood, affect LYMPHATICS: No lymphadenopathy noted NEUROLOGICAL : No neurological deficits Objective Labs 10/20/24 05:27 10/20/24 05:27 Labs: Laboratory Results - last 24 hr 10/20/24 05:27 WBC 5.7 RBC 3.11 L Hgb 10.5 L Hct 31.8 L MCV 102 H MCH 33.8 MCHC 33.0 RDW Std Deviation 55.8 H Plt Count 129 L Neut % (Auto) 76 Lymph % (Auto) 15 [place] % (Auto) 6 Eos % (Auto) 2 Baso % (Auto) 1 Neut # (Auto) 4.3 Lymph # (Auto) 0.9 L [place] # (Auto) 0.4 Eos # (Auto) 0.1 Baso # (Auto) 0.0 Immature Gran # (Auto) 0.02 H Absolute Nucleated RBC 0.00 Immature Gran % 0 Nucleated RBC % 0 Sodium 138 Potassium 4.8 D Chloride 98 Carbon Dioxide 29.1 Anion Gap 11 BUN 24 H Creatinine 3.4 H D Estim Creat Clear Calc 14.0 L eGFR 15 L BUN/Creatinine Ratio 7 L Glucose 93 D Calculated Osmolality 279 Calcium 8.1 L Corrected Calcium 8.4 L Phosphorus 3.7 Magnesium 2.0 Total Bilirubin 0.2 L AST 49 H ALT 29 Alkaline Phosphatase 253 H Total Protein 6.0 Albumin 3.6 Globulin 2.4 Albumin/Globulin Ratio 1.5 Assessment & Plan Assessment and plan (1) End stage renal failure on dialysis: Status: Acute Assessment and plan: 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 Patient currently on Monday, Monday, Monday dialysis. (2) Hypertension: Status: Acute Assessment and plan: Continue with home blood pressure medications (3) Diabetes: Status: Acute Assessment and plan: Accu-Chek, sliding scale, diabetic diet. (4) Congestive heart failure: Status: Acute Assessment and plan: Will adjust her dry weight during dialysis (5) Acute hypoxemic respiratory failure: Status: Acute Assessment and plan: Secondary to fluid overload-better (6) Anemia of chronic disease: Status: Acute Assessment and plan: Epogen with dialysis (7) Elevated LFTs: Status: Acute Assessment and plan: Passive liver congestion Additional Assessment & Plan Additional Plan: Thank you Driss for allowing me to participate in the care of Ms. Rivero Renal golden stable for discharge
--- NOTE | 2024-10-20 10:35 | PD.RESDS ---
Planned Discharge Date 10/20/24 DS: Providers Provider Date of admission: 10/17/24 14:59 Primary care physician: Miguel Macdonald MD Admitting Provider: Driss Matthews MD Attending Provider on Admission: Driss Matthews MD Consults: 10/17/24 14:14 Consult to Nephrology Stat Comment: ESRD HD Consulting Provider: Jonas Cortes Attending Provider on DC: Adonis Monet MD Discharging Provider: Adonis Monet MD DS: Diagnosis Problem List Completed Was Problem List Reviewed/Reconciled?: Yes Hospital Course Hospital Course Hospital course: Donna Max is a 59-year-old female with a past medical history of ESRD on HD M/W/F (follows Dr. Cortes), hypertension, hyperlipidemia, type 2 diabetes mellitus, asthma, GERD and depression who presents on 10/17 with shortness of breath. Daughter present at bedside to help provide additional history and translate. For the last 4 to 5 days, patient has been experiencing worsening shortness of breath with associated productive cough nonbloody, green-colored sputum, fever, chills, and pleuritic chest discomfort. Daughter states that there have been multiple sick contacts at home but patient was tested and negative for COVID and flu in the ED. Patient has also been experiencing orthopnea, PND, and worsening lower extremity edema. She underwent hemodialysis yesterday with no improvement in her symptoms. Regarding chest discomfort, it is pressure-like, substernal, radiates to the back, not associated with activity, but is tender to palpation and worsens with movement. However, daughter states that patient at baseline becomes dyspneic upon mild exertion and was prescribed home oxygen approximately 2 years ago but has since been taken away for unknown reasons. 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 In ED, initial vitals showed temperature 100.1 ?F, breathing 74% on room air and then placed on 10 L oxy mask eventually titrated down to 2 L NC saturating 96%. RSV, COVID and flu negative as mentioned above. CBC showed macrocytic anemia (chronic), no leukocytosis, ESR elevated at 41, Pro-Aj 1.24, K 5.2, HCO3 31.2, BUN 30, creatinine 4.1, GFR 12, glucose 193, ALP 265, troponins negative, BNP 673. CXR showed vascular congestion but no signs of pneumonia or pulmonary edema. EKG showed NSR with incomplete RBBB with QTc of 483. Given ceftriaxone and doxycycline x 1 in ED as well as x 1 DuoNeb treatment. Admitted for AHRF secondary to community acquired pneumonia and requiring extra session of hemodialysis. She immediately underwent dialysis on day of admission without difficulties. She was also started on ceftriaxone and azithromycin will put him sputum cultures obtained for acquired pneumonia. Given that patient also endorsed some orthopnea and PND with associated bilateral lower extremity edema an echo was ordered for further evaluation of possible new onset CHF asBNP also elevated at 670. Given ESRD status, unable to assess I/O and give diuretics as she produces very little urine. However, throughout hospitalization, patient oxygen requirements remained minimal at 1 L NC and saturatig in high 90s. On last day of admission, spoke to Dr. Cortes who was in agreement that patient will need another session of HD prior to being discharged. Otherwise, cleared from nephorlogy standpoint. Will send on oral augmentin for an additional 3 more days to complete antibiotic course for community acquired pneumonia (blood cultures remained negative after 48 hours, sputum cultures showed no growth). Additionally, will recommend to follow-up closely with PCP in order to follow-up with echo results obtained here while inpatient for further evaluation of possible new onset CHF. On 10/19, unable to DC successfully as O2 was not going to be ready. Diagnoses during admission: #AHRF, likely secondary to CAP versus new onset CHF versus fluid overload from ESRD #ESRD on HD M/W/F #Hyperkalemia #Hypocalcemia #? New onset CHF #Atypical chest pain #Hypertension #Hyperlipidemia #Type 2 diabetes mellitus #Asthma #GERD #Depression Discharge instructions: ? Take amoxicillin-clavulanate twice per day for three more days to complete your antibiotic course ? Continue taking all other home medications as prescribed ? Follow-up with PCP within 1-2 weeks of discharge to follow-up with echo results from the hospital ? Follow-up with Dr. Cortes within 1-2 weeks of discharge ? Return to ED if symptoms worsen or recur ----- Plan discussed with attending physician Dr. Byron Monet MD PGY-1 Internal Medicine Time Spent with Patient Time attestation: Total time spent providing and/or coordinating discharge services: Time spent: Less than 30 minutes Exam Vital Signs Temp Pulse Resp BP Pulse Ox O2 Del Method O2 Flow Rate 97.5 F 77 21 H 119/69 93 L Nasal Cannula 2 10/20/24 08:00 10/20/24 09:02 10/20/24 08:15 10/20/24 09:02 10/20/24 08:15 10/20/24 08:00 10/20/24 08:15 Narrative Exam General: AOx3, mild distress, able to speak in full sentences HEENT: NC/AT, mucous membranes moist, bilateral sclera anicteric Cardiovascular: regular rate and rhythm, S1/S2 present, no murmurs appreciated Pulmonary: bibasilar crackles appreciated, on 1 L NC saturating 94%, no accessory muscle use Abdominal: obese, soft, non-tender, non-distended, no rebound/guarding Musculoskeletal: bilateral lower extremity pitting edema (trace in RLE, 1+ LLE), normal ROM Skin: fistula in RUE, warm and dry, intact, no rashes Neuro: CN II-XII intact, no focal deficits Discharge Plan Plan Patient Disposition: HOME (Self Care) Care Plan Goals: ? Take amoxicillin-clavulanate twice per day for three more days to complete your antibiotic course ? Continue taking all other home medications as prescribed ? Follow-up with PCP within 1-2 weeks of discharge to follow-up with echo results from the hospital ? Follow-up with Dr. Cortes within 1-2 weeks of discharge ? Please discuss with your primary regarding obtaining records from the hospital for echocardiography results ? Return to ED if symptoms worsen or recur Prescriptions/Referrals Prescriptions/Med Rec: New amoxicillin-pot clavulanate 875-125 mg tablet 1 tab PO BID 3 Days Qty: 6 0RF Continued calcium acetate 667 mg Tablet 1,334 mg PO TID Rx Instructions: after every meal glipizide 5 mg Tablet 5 mg PO QDAY atorvastatin 40 mg tablet 40 mg PO QDAY Patient Comments: TOME JAMES TABLETA TODOS LOS D FOR 90 DAYS carvedilol 6.25 mg tablet 6.25 mg PO BID Patient Comments: TOME JAMES TABLETA DOS VECES AL D A nifedipine 90 mg tablet extended release 90 mg PO BID Patient Comments: TOME JAMES TABLETA TODOS LOS D EN EST MELLISSA VAC O FOR 90 DAYS insulin glargine [Basaglar KwikPen U-100 Insulin] 100 unit/mL (3 mL) insulin pen See Rx Instructions .ROUTE .COMPLEX Patient Comments: INYECTE 15 UNIDADES DEBAJO DE LA PIEL EN LA MANANA Y 15 UNIDADES EN LA TARDE Rx Instructions: INYECTE 15 UNIDADES DEBAJO DE LA PIEL EN LA MANANA Y 15 UNIDADES EN LA TARDE hydralazine 50 mg Tablet 50 mg PO TID PRN (Reason: SBP >150) Qty: 90 0RF hydrocodone-acetaminophen 5-325 mg tablet 1 tab PO TID MDD 15mg PRN (Reason: pain) Qty: 18 0RF sertraline 100 mg tablet 150 mg PO DAILY Patient Comments: TAKE 1.5 TABLETS POR V A ORAL TODOS LOS D Referrals: Miguel Macdonald MD [Primary Care Provider] - Patient/Caregiver Discharge Instructions Print Language: Citizen Of [place] Stand Alone Forms: Ghazal Award Info., Patient Portal Info Letter Discharge Order Discharge Orders: Discharge (Routine); Ordered 10/19/24 Ordered By: Adonis Monet Quality Discharge Quality Measures VTE prophylaxis MD Attestestation MD Attestation I attest that I was physically present for the evaluation, physical examination, lab and imaging review of the patient with the residents. I discussed the case with the residents and agree with the findings and plans of care as documented above. At bedside today, patient appears comfortable denies any new complaints. Saturating well on 2 L nasal cannula. Patient was planned for discharge yesterday but she desaturated without the oxygen. Home oxygen could not be arranged yesterday. Rest of the vital signs are within normal limits today. Lab results are stable as well. We will discharge the patient today with home oxygen. She is recommended to follow-up with nephrology within 1 to 2 weeks of discharge. Driss Matthews MD
== END 2024-10-20 12:30 | disposition home or self-care (01) | DRG 194 ==
LOC: SERX 14:24 → SERHOLD 15:34 → S2NX 10-18 01:33
PROVIDERS: Student in an Organized Health Care Education/Training Program; Admitting Provider Student in an Organized Health Care Education/Training Program; Emergency Provider Family Medicine; PCP Family Medicine; Visit Provider Student in an Organized Health Care Education/Training Program
DX: I13.2 Hypertensive heart and chronic kidney disease with heart failure and with stage 5 chronic kidney disease, or end stage renal disease (principal); E87.70 Fluid overload, unspecified; J18.9 Pneumonia, unspecified organism; J96.01 Acute respiratory failure with hypoxia; J45.909 Unspecified asthma, uncomplicated; E78.5 Hyperlipidemia, unspecified; K21.9 Gastro-esophageal reflux disease without esophagitis; E11.22 Type 2 diabetes mellitus with diabetic chronic kidney disease; N18.6 End stage renal disease; E83.51 Hypocalcemia; E87.5 Hyperkalemia; I50.9 Heart failure, unspecified; F32.A Depression, unspecified; D63.1 Anemia in chronic kidney disease; I45.10 Unspecified right bundle-branch block; D53.9 Nutritional anemia, unspecified; K76.1 Chronic passive congestion of liver; Z99.2 Dependence on renal dialysis; Z66 Do not resuscitate; Z79.4 Long term (current) use of insulin; Z87.891 Personal history of nicotine dependence; Z79.899 Other long term (current) drug therapy; Z79.84 Long term (current) use of oral hypoglycemic drugs; Z91.199 Patient's noncompliance with other medical treatment and regimen due to unspecified reason
CPT/HCPCS: 36415; 71045; 80053; 80061; 81001; 83036; 83605; 83735; 83880; 84100; 84145; 84484; 85025; 85610; 85652; 85730; 87040; 87205; 87400; 87634; 87811; 93005; 93306; 94640; 96365; 96367; 96372; 99285; A9270; J0456; J0696; J1644; J1815; J3490; J7050

== ENCOUNTER 2024-12-16 10:16 | Emergency (ER) | payer MEDICAID, SELFPAY ==
[2024-12-16 10:18] VITALS: BP 145/69; PULSE 73; RESP 18; TEMP 36.4; O2SAT 100
[2024-12-16 11:23] VITALS: BMI 29.5
--- NOTE | 2024-12-16 11:27 | PD.EDWEAK ---
ED Weakness RME/HPI General Chief complaint: Altered Mental Status Stated complaint: AMS Time Seen by Provider: 12/16/24 10:17 Arrival date/time: 12/16/24 10:16 Limitations: no limitations RME / HPI RME / HPI Narrative: 59 year old female with history of ESRD on HD M// followed by Dr. Thurston, hypertension, diabetes, hyperlipidemia, GERD, asthma presents to the ED BIBA from the dialysis center for evaluation of global weakness today. Per medics, dialysis staff reported after dialysis treatment patient had complained of feeling very weak and fatigued after standing. Staff report the patient completed her dialysis treatment and had 2.4L removed. Medics state when they arrived patients blood sugar was 36 and given D10 and two glucose packets. Repeat BS 153. While in the ED, patient reports feeling globally weak and fatigued, otherwise no other associated symptoms reported. Denies fevers, chills, chest pain, sweats, abdominal pain, vomiting, diarrhea, or urinary symptoms. Related Data Home Medications ?Medication ?Instructions ?Recorded ?Confirmed glipizide 5 mg tablet 5 mg PO QDAY 08/12/19 02/03/24 atorvastatin 40 mg tablet 40 mg PO QDAY 10/07/21 10/17/24 carvedilol 6.25 mg tablet 6.25 mg PO BID 10/07/21 10/17/24 calcium acetate 667 mg tablet 1,334 mg PO TID 10/13/21 02/03/24 nifedipine 90 mg tablet,extended 90 mg PO BID 02/02/22 10/17/24 release insulin glargine 100 unit/mL (3 See Rx Instructions .Route .COMPLEX 03/09/22 10/18/24 mL) subcutaneous pen (Basaglar KwikPen U-100 Insulin) sertraline 100 mg tablet 150 mg PO DAILY 10/17/24 10/17/24 Previous Rx's ?Medication ?Instructions ?Recorded hydralazine 50 mg tablet 50 mg PO TID PRN SBP >150 #90 tabs 02/07/24 hydrocodone 5 mg-acetaminophen 325 1 tab PO TID PRN pain #18 tabs 02/07/24 mg tablet Allergies Allergy/AdvReac Type Severity Reaction Status Date / Time No Known Allergies Allergy Verified 10/17/24 11:32 Review of Systems Review of Systems Systems Reviewed: All systems reviewed, normal except as documented Past Medical History Past Medical History CARDIAC: Positive Cardiac Disorders, Hypercholesterolemia and Hypertension RESPIRATORY: Positive Pneumonia and Sleep Apnea GASTROINTESTINAL: Positive Gastrointestinal Disorders, Gall Bladder Disease, Ulcer and Gastroesophageal Reflux Disease GENITOURINARY: Positive Genitourinary Disorders, Renal Disease, Kidney Stones and Dialysis (M,W,F DR. THURSTON) REPRODUCTIVE: Positive Previous Pregnancies MUSCULOSKELETAL: Positive Musculoskeletal Disorders and Arthritis ENT: Positive Cataracts ENDOCRINE: Positive Endocrine Disorders and Diabetes Mellitus Type 2 HEMATOLOGIC: Positive Blood Disorders and Anemia PSYCHO/SOCIAL: Positive Depression and Anxiety OTHER HISTORY: Positive Hospitalization, Blood Transfusions and Measles Family History FAMILY HISTORY: Positive Family Psychiatric Problems, Family Respiratory Disorders, Family Cardiac Disorders, Family Gastrointestinal Problems, Family Cancer and Family Anesthesia Reaction Surgical History SURGICAL: Positive Ear Surgery, Abdominal Surgery, Tubal Ligation and Section Social History SMOKING STATUS: Former smoker SUBSTANCE USE: does not use ED Exam General Limitations: Present no limitations General appearance: Present alert and in no apparent distress Head Head exam: Present atraumatic, normocephalic and normal inspection Eye Eye exam: Present normal appearance, PERRL and EOMI ENT ENT exam: Present normal exam, normal oropharynx and mucous membranes moist Neck Neck exam: Present normal inspection, full ROM and trachea midline Chest Chest inspection: Present normal inspection and symmetric chest wall rise Respiratory Respiratory exam: Present normal lung sounds bilaterally Cardiovascular Cardiovascular exam: Present regular rate, normal rhythm and normal heart sounds Abdominal Exam Abdominal exam: Present soft and normal bowel sounds Extremities Exam Extremities exam: Present normal inspection and full ROM Back Exam Back exam: Present normal inspection and full ROM Neurological Exam Neurological exam: Present alert, oriented X3 and CN II-XII intact Psychiatric Psychiatric exam: Present normal affect and normal mood Skin Skin exam: Present warm, dry, intact and normal color Course Quality Measures none Orders Category Date Time Status Miscellaneous Nursing Order NOW Care 12/16/24 10:35 Completed CBC Stat Lab 12/16/24 11:43 Completed CMP [Comprehensive Metabolic Panel] Stat Lab 12/16/24 11:43 Completed Magnesium Stat Lab 12/16/24 11:43 Completed Vital Signs Vital signs: Vital Signs Temperature 97.5 F 12/16/24 10:18 Pulse Rate 73 12/16/24 10:18 Respiratory Rate 18 12/16/24 10:18 Blood Pressure 145/69 H 12/16/24 10:18 Pulse Oximetry (%) 100 12/16/24 10:18 Oxygen Delivery Method Room Air 12/16/24 10:18 Pulse ox is 100% on room air which is adequate. Weakness MDM Narrative MDM Narrative:: IMadeline am scribing for and in the presence of Dr. Lopez. Patient data External records reviewed:: [facility] previous records (I reviewed admission from 10/17/2024 through 10/20/2024) and EMS form Clinical information provided by:: patient and EMS Social determinants that could affect healthcare access:: none Patient has the following chronic illnesses:: ESRD on HD M/W/F followed by Dr. Thurston, hypertension, diabetes, hyperlipidemia, GERD, asthma How is presenting disease/condition affected by chronic disease/condition?: exacerbated by Evaluation data The following diagnostics were reviewed and interpreted by me:: lab results Lab and/or radiology exams considered but not ordered:: None Interpretation Summary: Labs are at patients baseline Medications / Prescriptions Medications or Prescriptions considered but not ordered:: None Medication administrations:: none Consultations Consultation(s) initiated? (list below): No Diagnosis Weakness Differential Diagnosis: acute myocardial infarction, hypoglycemia, hypothyroidism, sepsis and dehydration Most likely diagnosis given after review of the tests above:: Hypoglycemic episode Admission Indicated Admission indicated?: not indicated Admission Request Was there a request for admission?: No Disposition Plan Disposition Plan: Discharge Discharge Attestation Discharge Attestation: The patient and all family members were given an opportunity to ask questions and understood the discharge instructions. Discharge instructions specifically effects, indications for sooner follow up or return to the emergency department, and the expected course of current diagnosis. Patient condition: Stable Discharge Plan Plan Patient Disposition: HOME (Self Care) Discharge Disposition comment: Stable for discharge home Patient condition on transfer: Stable Prescriptions/Referrals Prescriptions/Med Rec: No Action calcium acetate 667 mg Tablet 1,334 mg PO TID Rx Instructions: after every meal glipizide 5 mg Tablet 5 mg PO QDAY atorvastatin 40 mg tablet 40 mg PO QDAY Patient Comments: TOME JAMES TABLETA TODOS LOS D FOR 90 DAYS carvedilol 6.25 mg tablet 6.25 mg PO BID Patient Comments: TOME JAMES TABLETA DOS VECES AL D A nifedipine 90 mg tablet extended release 90 mg PO BID Patient Comments: TOME JAMES TABLETA TODOS LOS D EN EST MELLISSA VAC O FOR 90 DAYS insulin glargine [Malinda OnealPen U-100 Insulin] 100 unit/mL (3 mL) insulin pen See Rx Instructions .ROUTE .COMPLEX Patient Comments: INYECTE 15 UNIDADES DEBAJO DE LA PIEL EN LA MANANA Y 15 UNIDADES EN LA TARDE Rx Instructions: INYECTE 15 UNIDADES DEBAJO DE LA PIEL EN LA MANANA Y 15 UNIDADES EN LA TARDE hydralazine 50 mg Tablet 50 mg PO TID PRN (Reason: SBP >150) Qty: 90 0RF hydrocodone-acetaminophen 5-325 mg tablet 1 tab PO TID MDD 15mg PRN (Reason: pain) Qty: 18 0RF sertraline 100 mg tablet 150 mg PO DAILY Patient Comments: TAKE 1.5 TABLETS POR V A ORAL TODOS LOS D Referrals: Miguel Macdonald MD [Primary Care Provider] - In 1 week Problem List Clinical Impression: Hypoglycemic episode in patient with diabetes mellitus Patient/Caregiver Discharge Instructions Discharge Activity: activity as tolerated Diet Instructions: No restrictions Education Materials: Hypoglycemia (Low Blood Sugar) Additional Instructions: Please return to the emergency department if you have any worsening or if you have any further medical problems and we will help you. Otherwise you should follow-up with your primary care doctor within the next several days. Today you were seen in the emergency department for a hypoglycemic episode. That means your blood sugar was very low after dialysis today. You should be sure to bring a candy bar or other sugary foods with you wherever you go. If you develop similar symptoms to the ones he had today he will know to eat the candy bar and that will help correct your blood sugar Print Language: Turkmen Stand Alone Forms: Ghazal Award Info., Patient Portal Info Letter
[2024-12-16 11:54] LABS: Basophils # (Auto) 0.0 Thou/mm3 (0.0-0.2); Basophils % (Auto) 0 % (0-2.5); Eosinophils # (Auto) 0.1 Thou/mm3 (0.0-0.5); Eosinophils % (Auto) 2 % (0-10); Hematocrit 37.2 % (36.0-46.0); Hemoglobin 12.2 g/dL (12.0-16.0); Immature Granulocytes Auto 0.01 Thou/mm3 (0.00-0.00); Lymphocytes # (Auto) 0.6 Thou/mm3 (1.0-4.8); Lymphocytes % (Auto) 12 % (10-50); Mean Corpuscular HGB Conc 32.8 g/dl (31.0-37.0); Mean Corpuscular Hemoglobin 33.9 pg (25.0-35.0); Mean Corpuscular Volume 103 fL (80-100); Monocytes # (Auto) 0.5 Thou/mm3 (0.0-0.8); Monocytes % (Auto) 11 % (0-12); Neutrophils # (Auto) 3.8 Thou/mm3 (1.8-7.7); Neutrophils % (Auto) 75 % (37-80); Nucleated Red Blood Cell # 0.00 Thou/mm3 (0.00-0.00); Nucleated Red Blood Cell % 0 /100 WBC (0); Platelet Count 148 Thou/mm3 (140-440); RDW Standard Deviation 57.6 fL (36.4-46.3); Red Blood Count 3.60 Miln/mm3 (4.00-5.20); White Blood Count 5.0 Thou/mm3 (3.6-11.0)
[2024-12-16 12:11] LABS: Alanine Aminotransferase 89 U/L (10-49); Albumin, Serum 4.0 gm/dL (3.4-4.8); Albumin/Globulin Ratio 1.4 (1.2-2.2); Alkaline Phosphatase 614 U/L (46-116); Anion Gap 11 (7-16); Aspartate Amino Transferase 105 U/L (0-34); BUN/Creatinine Ratio 6 Ratio (12-20); Bilirubin,Total 0.5 mg/dL (0.3-1.2); Blood Urea Nitrogen 20 mg/dL (9-23); Calcium 8.5 mg/dL (8.3-10.6); Calcium (Corrected) 8.5 mg/dL (8.5-10.1); Carbon Dioxide 33.2 mMol/L (20.0-31.0); Chloride 92 mMol/L (98-107); Creatinine (Component) 3.2 mg/dL (0.6-1.3); Estimated Creatinine Clearance 14.2 mL/min (>60); Globulin 2.9 gm/dL (2.3-3.5); Glucose 214 mg/dL (74-106); Magnesium 1.7 mg/dL (1.6-2.6); Osmolality,Calculated 280 (275-295); Potassium 3.4 mMol/L (3.4-5.1); Sodium 136 mMol/L (136-145); Total Protein 6.9 gm/dL (5.7-8.2); eGFR 16 See Note
[2024-12-16 13:54] VITALS: BP 163/77; PULSE 77; RESP 18; O2SAT 99
== END 2024-12-16 13:56 | disposition home or self-care (01) ==
PROVIDERS: Emergency Provider Emergency Medicine; PCP Family Medicine
DX: E11.649 Type 2 diabetes mellitus with hypoglycemia without coma (principal); E16.A3 Hypoglycemia level 3; Z79.84 Long term (current) use of oral hypoglycemic drugs; Z79.4 Long term (current) use of insulin
CPT/HCPCS: 36415; 80053; 83735; 85025; 99283

== ENCOUNTER 2025-03-10 10:01 | Inpatient (IN) | payer MEDICAID, SELFPAY ==
[2025-03-10] VITALS (12 sets, daily range): BP systolic 143–174; BP diastolic 56–72; PULSE 70–82; RESP 12–90; TEMP 36.7–37.4; O2SAT 91–97; BMI 27.9
--- NOTE | 2025-03-10 10:06 | EKG_ITS ---
[facility] Test Date: 2025-03-10 Pat Name: HENRIQUE MAJANO Department: Room: - Gender: Female Sliver Former: : 1965 Requested By: Paradise Webber Order Number: [id number] Reading MD: Paradise Webber Measurements Intervals [place] Rate: 75 P: 9 MS: 192 QRS: 69 QRSD: 112 T: -42 QT: 412 QTc: 462 Interpretive Statements SINUS RHYTHM INCOMPLETE RIGHT BUNDLE BRANCH BLOCK [90+ ms QRS DURATION, TERMINAL R IN V1/V2, 40+ ms S IN I/aVL/V4/V5/V6] Compared to ECG 10/18/2024 12:15:11 No significant changes /store/S0/[id number].pdf
--- NOTE | 2025-03-10 10:23 | PD.EDAMS ---
Altered Mental Status RME/HPI General Chief Complaint: GI Bleed Stated Complaint: WEAKNESS Time Seen by Provider: 03/10/25 10:22 Arrival date/time: 03/10/25 10:01 RME / HPI RME / HPI narrative: 59 year old female with history of hypertension, ESRD on HD M/W/F, diabetes, hyperlipidemia, GERD presents to the ED BIBA from the dialysis center for evaluation of altered mental status today. Per medics, staff at the dialysis center reported the patient stated she felt slightly weak and admitted to having black stools prior to treatment. Staff reported she completed her dialysis and had 3L removed. However, noted she appeared weaker than her baseline after dialysis treatments, prompting calling 911. Medics state at baseline the patient is awake, alert, conversive, GCS of 15. On arrival to ED, patient is very sleepy, unable to answer orientation questions, and a GCS of 13. RN reports the patient did states she has had black stools x4 days though no further history provided. Prehospital BS 169 and blood sugar in the ED is 124. Application Support Lead: Dr. Cortes Related Data Home Medications ?Medication ?Instructions ?Recorded ?Confirmed glipizide 5 mg tablet 5 mg PO QDAY 08/12/19 02/03/24 atorvastatin 40 mg tablet 40 mg PO QDAY 10/07/21 10/17/24 carvedilol 6.25 mg tablet 6.25 mg PO BID 10/07/21 10/17/24 calcium acetate 667 mg tablet 1,334 mg PO TID 10/13/21 02/03/24 nifedipine 90 mg tablet,extended 90 mg PO BID 02/02/22 10/17/24 release insulin glargine 100 unit/mL (3 See Rx Instructions .Route .COMPLEX 03/09/22 10/18/24 mL) subcutaneous pen (Basaglar KwikPen U-100 Insulin) sertraline 100 mg tablet 150 mg PO DAILY 10/17/24 10/17/24 Previous Rx's ?Medication ?Instructions ?Recorded hydralazine 50 mg tablet 50 mg PO TID PRN SBP >150 #90 tabs 02/07/24 hydrocodone 5 mg-acetaminophen 325 1 tab PO TID PRN pain #18 tabs 02/07/24 mg tablet Allergies Allergy/AdvReac Type Severity Reaction Status Date / Time No Known Allergies Allergy Verified 03/10/25 15:48 Review of Systems Review of Systems ROS Unobtainable: unobtainable due to mental status Past Medical History Past Medical History CARDIAC: Positive Cardiac Disorders, Hypercholesterolemia and Hypertension RESPIRATORY: Positive Pneumonia and Sleep Apnea GASTROINTESTINAL: Positive Gastrointestinal Disorders, Gall Bladder Disease, Ulcer and Gastroesophageal Reflux Disease GENITOURINARY: Positive Genitourinary Disorders, Renal Disease, Kidney Stones and Dialysis REPRODUCTIVE: Positive Previous Pregnancies MUSCULOSKELETAL: Positive Musculoskeletal Disorders and Arthritis ENT: Positive Cataracts ENDOCRINE: Positive Endocrine Disorders and Diabetes Mellitus Type 2 HEMATOLOGIC: Positive Blood Disorders and Anemia PSYCHO/SOCIAL: Positive Depression and Anxiety OTHER HISTORY: Positive Hospitalization, Blood Transfusions and Measles Family History FAMILY HISTORY: Positive Family Psychiatric Problems, Family Respiratory Disorders, Family Cardiac Disorders, Family Gastrointestinal Problems, Family Cancer and Family Anesthesia Reaction Surgical History SURGICAL: Positive Ear Surgery, Abdominal Surgery, Tubal Ligation and Section Social History SMOKING STATUS: Unknown if ever smoked SUBSTANCE USE: does not use ED Exam Narrative Physical exam: Constitutional: Very sleepy, not answering questions of orientation, nontoxic, no acute distress HEENT: Normocephalic, atraumatic, extraocular movements intact, scleral icterus. Neck: Supple CV: Regular rate and rhythm, systolic murmur, no rubs/gallops Lungs: Clear to auscultation BL, no respiratory distress. Abd: Soft, ND, no HSM noted to palpation, appears mildly tender to epigastrium. No rebound or guarding noted. Rectal: Dark brown stool that is guaiac positive Extremities: No deformities, no edema noted, chronic PVD changes to bilateral lower extremities distally Neuro: Sleepy, able to move all 4 extremities equally though with decreased strength Skin: Warm, dry, intact Course Course Course Narrative: 1320h: Pt with GI bleed, hb 7.1. 1u PRBC ordered. CT abdomen pending. Plan d/w hospital team for admit when results in. 1525h: I spoke with hospitalist team C for admission. 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 STAT Care 03/10/25 10:41 Completed Continuous Pulse Oximetry NOW Care 03/10/25 10:40 Completed Continuous Pulse Oximetry NOW Care 03/10/25 16:12 Completed EKG (ED ONLY) *Do not use* NOW Care 03/10/25 10:06 Completed In and Out Catheter X1 Care 03/10/25 10:42 Completed Insert IV STAT Care 03/10/25 10:41 Completed Miscellaneous Nursing Order NOW Care 03/10/25 16:18 Active NPO NOW Care 03/10/25 10:40 Completed NPO after Midnight ONCE Care 03/10/25 16:25 Active Notify provider NEEDED Care 03/10/25 16:12 Active Occult Blood,Stool (Nursing) ONCE Care 03/10/25 10:37 Active Sequential Compression Device QSHIFT Care 03/10/25 16:18 Active Transfuse,blood/blood products NOW Care 03/10/25 11:50 Active Consult to Gastroenterology Stat Cons 03/10/25 16:25 Ordered Consult to Nephrology Routine Cons 03/10/25 16:25 Ordered Diet Clear Liquid Diet 03/10/25 Dinner Active Diet NPO after Midnight Diet 03/11/[address] abdomen pelvis w con Stat Exams 03/10/25 10:[address] head/brain wo con Stat Exams 03/10/25 10:42 Completed EKG (ED Only) Stat Exams 03/10/25 10:06 Draft XR chest 1V portable Stat Exams 03/10/25 10:42 Completed A1C [Glycohemoglobin w (eAG)] AM DRAW Lab 03/11/25 05:00 Ordered Ammonia Stat Lab 03/10/25 11:23 Completed CBC AM DRAW Lab 03/11/25 05:00 Ordered CBC AM DRAW Lab 03/12/25 05:00 Ordered CBC AM DRAW Lab 03/13/25 05:00 Ordered CBC AM DRAW Lab 03/14/25 05:00 Ordered CBC AM DRAW Lab 03/15/25 05:00 Ordered CBC AM DRAW Lab 03/16/25 05:00 Ordered CBC AM DRAW Lab 03/17/25 05:00 Ordered CBC Stat Lab 03/10/25 10:40 Completed Comprehensive Metabolic Panel AM DRAW Lab 03/11/25 05:00 Ordered Comprehensive Metabolic Panel AM DRAW Lab 03/12/25 05:00 Ordered Comprehensive Metabolic Panel AM DRAW Lab 03/13/25 05:00 Ordered Comprehensive Metabolic Panel AM DRAW Lab 03/14/25 05:00 Ordered Comprehensive Metabolic Panel AM DRAW Lab 03/15/25 05:00 Ordered Comprehensive Metabolic Panel AM DRAW Lab 03/16/25 05:00 Ordered Comprehensive Metabolic Panel AM DRAW Lab 03/17/25 05:00 Ordered Comprehensive Metabolic Panel Stat Lab 03/10/25 11:23 Completed Lactate (Lactic Acid) Stat Lab 03/10/25 16:11 Completed Lipid Panel AM DRAW Lab 03/11/25 05:00 Ordered Magnesium AM DRAW Lab 03/11/25 05:00 Ordered Magnesium AM DRAW Lab 03/12/25 05:00 Ordered Magnesium AM DRAW Lab 03/13/25 05:00 Ordered Magnesium AM DRAW Lab 03/14/25 05:00 Ordered Magnesium AM DRAW Lab 03/15/25 05:00 Ordered Magnesium AM DRAW Lab 03/16/25 05:00 Ordered Magnesium AM DRAW Lab 03/17/25 05:00 Ordered Magnesium Stat Lab 03/10/25 11:23 Completed Occult Blood, Stool (LAB) Stat Lab 03/10/25 10:36 Completed Partial Thromboplastin Time Stat Lab 03/10/25 11:23 Completed Phosphorous AM DRAW Lab 03/11/25 05:00 Ordered Phosphorous AM DRAW Lab 03/12/25 05:00 Ordered Phosphorous AM DRAW Lab 03/13/25 05:00 Ordered Phosphorous AM DRAW Lab 03/14/25 05:00 Ordered Phosphorous AM DRAW Lab 03/15/25 05:00 Ordered Phosphorous AM DRAW Lab 03/16/25 05:00 Ordered Phosphorous AM DRAW Lab 03/17/25 05:00 Ordered Prothrombin Time with INR Stat Lab 03/10/25 11:23 Completed Thyroid Stimulating Hormone AM DRAW Lab 03/11/25 05:00 Ordered Type and Screen Stat Lab 03/10/25 11:23 Completed Urinalysis, C/S if Indicated Stat Lab 03/10/25 10:45 Completed Urine Culture Stat Lab 03/10/25 10:45 Received prbc [Red Blood Cells] Stat Lab 03/10/25 11:23 Completed Acetaminophen Tab [Tylenol Tab] Med 03/10/25 16:12 Active 650 mg PO Q6H PRN Albuterol/Ipratr Rt Niurka [Duoneb Rt Niurka] Med 03/10/25 16:59 Active 3 ml INH Q2HR PRN Calcium Acetate [Phoslo] Med 03/10/25 17:30 Active 1,334 mg PO TIDWM Dextrose 50% Syr [D50w Syringe Abboject] Med 03/10/25 16:23 Active 25 ml IV Q15MIN PRN Dextrose 50% Syr [D50w Syringe Abboject] Med 03/10/25 16:23 Active 50 ml IV Q15MIN PRN Glucagon Inj Med 03/10/25 16:23 Active 1 mg IM Q15MIN PRN HYDROmorphone INJ [Dilaudid Inj] Med 03/10/25 16:37 Active 0.5 mg IVP Q4HR PRN INSULIN LISPRO (AdmeLOG) [HumaLOG] Med 03/10/25 16:30 Active See Protocol SC Q6H Morphine* Inj Med 03/10/25 15:58 Discontinued 4 mg IVP NOW ONE Ondansetron Inj [Zofran Inj] Med 03/10/25 16:18 Active 4 mg IVP Q6H PRN Pantoprazole Inj [Protonix Inj] Med 03/10/25 21:00 Active 40 mg IVP Q12HR Pantoprazole Inj [Protonix Inj] Med 03/10/25 10:40 Discontinued 40 mg IVP X1 ONE Pantoprazole Inj [Protonix Inj] Med 03/10/25 17:05 Discontinued 40 mg IVP X1 ONE Sertraline HCl [Zoloft] Med 03/10/25 21:00 Active 150 mg PO HS Sodium Chloride 0.9% [Ns] 100 ml Med 03/10/25 16:22 Pending Octreotide Acet Inj [SandoSTATIN Inj] 1,000 mcg IV 50 mcg/hr Sodium Chloride 0.9% [Ns] 100 ml Med 03/10/25 16:30 Active Octreotide Acet Inj [SandoSTATIN Inj] 1,000 mcg IV 50 mcg/hr cefTRIAXone/D5w 1gm IV premix [Rocephin/D5w 1gm IV Med 03/10/25 16:24 Active premix] 1 gm in 50 ml IV QDAY Code Status Routine Oth 03/10/25 16:12 Ordered Oxygen Delivery PRN RT 03/10/25 16:12 Active Vital Signs Vital signs: Vital Signs Temperature 98.2 F 03/10/25 10:07 Pulse Rate 75 03/10/25 10:07 Respiratory Rate 18 03/10/25 10:07 Blood Pressure 145/69 H 03/10/25 10:07 Pulse Oximetry (%) 97 03/10/25 10:07 Oxygen Delivery Method Room Air 03/10/25 10:07 Pulse ox is 97% on room air which is adequate. Altered Mental Status MDM Narrative MDM Narrative:: Madeline Ferreira am scribing for and in the presence of Dr. Garcia. Patient data External records reviewed:: [facility] previous records and EMS form Clinical information provided by:: EMS Social determinants that could affect healthcare access:: none Patient has the following chronic illnesses:: hypertension, ESRD on HD M/W/F, diabetes, hyperlipidemia, GERD How is presenting disease/condition affected by chronic disease/condition?: exacerbated by Evaluation data The following diagnostics were reviewed and interpreted by me:: lab results, radiology exam(s) and EKG tracing(s) (EKG @ 10:11 AM. Normal sinus rhythm, rate 75, incomplete right bundle branch block, no STEMI. ) Lab and/or radiology exams considered but not ordered:: None Interpretation Summary: Ordering Physician: Paradise Garcia MD Date of Service: 03/10/25 Procedure(s): XR chest 1V portable Accession Number(s): [id number] cc: Douglas Louise MD; Paradise Garcia MD; NO PRIMARY/FAMILY,PHYSICIAN~ EXAMINATION: AP chest single view TECHNIQUE: Portable AP sitting chest single view Date and time: March 10, 2025, 1106 hours, comparison October 17, 2024 INDICATIONS: Altered mental status today FINDINGS: Mild heart failure Mild enlargement cardiac contour with prominent vascular congestion Prominent osteopenia IMPRESSION: Early heart failure Dictated By: Douglas Louise MD Signed By: <Electronically signed by Douglas Louise MD in OV> 03/10/25 1240 Ordering Physician: Paradise Garcia MD Date of Service: 03/10/25 Procedure(s): CT head/brain wo con Accession Number(s): [id number] cc: Douglas Louise MD; Paradise Garcia MD; NO PRIMARY/FAMILY,PHYSICIAN~ Examination: CT brain head without contrast. 2-D sagittal coronal reconstructions Date and time of exam: March 10, 2025, 1359 hours INDICATIONS: Altered mental status today Technique: Multiple CT axial sections of the brain have been obtained, 5 mm slice thickness. Contrast has not been administered. 2-D sagittal, coronal reconstructions have been obtained Low dose protocols were performed. One or more of the following dose reduction techniques were used; automated exposure control, adjustment of the mA and/or KV according to patient size, use of iterative reconstruction technique. Findings: No significant ventricular enlargement. Intra-axial or extra-axial hemorrhage density is not seen. No mass effect or midline shift Basal cisterns are not remarkable. Fourth ventricle is midline. Cranial vault intact. Impression: Negative for acute hemorrhage, mass effect or midline shift Advise clinical correlation and follow-up accordingly Dictated By: Douglas Louise MD Signed By: <Electronically signed by Douglas Louise MD in OV> 03/10/25 1517 Ordering Physician: Paradise Garcia MD Date of Service: 03/10/25 Procedure(s): CT abdomen pelvis w con Accession Number(s): [id number] cc: Douglas Louise MD; Paradise Garcia MD; NO PRIMARY/FAMILY,PHYSICIAN~ Examination: CT abdomen with intravenous contrast CT pelvis with intravenous contrast 2-D coronal reconstructions 2-D sagittal reconstructions Date and time of exam: March 10, 2025, 1406 hours, comparison 02/03/2024 INDICATIONS: Gastrointestinal bleeding today. CTDI: vol (mGy) 8.57 DLP: (mGycm) 448 Technique: Multiple axial sections of the abdomen and pelvis have been obtained. 64 slice high-resolution scanner used. 3 mm axial sections have been obtained, post intravenous injection 60 cc Isovue 370 2-D sagittal, coronal reconstructions obtained. Low dose protocols were performed. One or more of the following dose reduction techniques were used; automated exposure control, adjustment of the mA and/or KV according to patient size, use of iterative reconstruction technique. Findings: Moderate enlargement cardiac contour with prominent vascular congestion Cirrhosis, liver enlarged with irregular contour Mild ascites Suspicious for esophageal varices No pancreatic mass No splenic lesion Aorta normal size Atrophic kidneys no hydronephrosis 18 mm fat-containing umbilical hernia No bowel obstruction Atrophic uterus Contracted urinary bladder Severe osteopenia IMPRESSION: Moderate enlargement cardiac contour with prominent vascular congestion Cirrhosis Mild ascites Suspicious for esophageal varices Atrophic kidneys Dictated By: Douglas Louise MD Signed By: <Electronically signed by Douglas Louise MD in OV> 03/10/25 1536 Medications / Prescriptions Medications or Prescriptions considered but not ordered:: None Medication administrations:: Medication Administration History Acetaminophen (Acetaminophen 325 Mg Tablet) 650 mg PO Q6H PRN; Protocol PRN Reason: Fever >100.4 or pain Stop: 04/09/25 16:11 Albuterol/Ipratropium (Albuterol/Ipratropium (Duoneb) Rt Niurka 3 Ml Nebu) 3 ml INH Q2HR PRN PRN Reason: SHORTNESS OF BREATH OR WHEEZE Stop: 04/09/25 16:58 Calcium Acetate (Calcium Acetate 667 Mg Tablet) 1,334 mg PO TIDWM WALE Stop: 04/09/25 17:29 Dextrose (Dextrose 50%-Water Inj 50 Ml Syringe) 25 ml IV Q15MIN PRN PRN Reason: BG 50-70 responsive npo pt Stop: 04/09/25 16:22 Dextrose (Dextrose 50%-Water Inj 50 Ml Syringe) 50 ml IV Q15MIN PRN PRN Reason: BG <50 OR BG <70 & pt unresponsive Stop: 04/09/25 16:22 Glucagon (Glucagon Inj 1 Mg Vial) 1 mg IM Q15MIN PRN PRN Reason: BG <70, and no IV access Hydromorphone HCl (Hydromorphone Inj 2 Mg/Ml Vial) 0.5 mg IVP Q4HR PRN PRN Reason: Pain 4-10 Stop: 03/15/25 16:36 Octreotide Acetate 1,000 mcg/ (Sodium Chloride) 102 mls @ 5.1 mls/hr IV .Q20H WALE; Protocol Stop: 03/15/25 16:22 Ceftriaxone Sodium/Dextrose (Rocephin/D5w 1gm Iv Premix) 1 gm in 50 mls @ 100 mls/hr IV QDAY WALE Stop: 03/17/25 16:23 Last Infusion: 03/10/25 17:18 Dose: Infused Documented By: Admin: 03/10/25 16:43 Dose: 100 mls/hr Documented By: GM Octreotide Acetate 1,000 mcg/ (Sodium Chloride) 102 mls @ 5.1 mls/hr IV .Q20H ONE; Protocol Stop: 03/11/25 12:29 Last Admin: 03/10/25 17:28 Dose: 50 mcg/hr, 5.1 mls/hr Documented By: GM Insulin Human Lispro (Insulin Lispro (Admelog) 1 Unit/0.01 Ml Unit) 0 unit SC Q6H WALE; Protocol Stop: 04/09/25 16:29 Last Admin: 03/10/25 16:38 Dose: Not Given Documented By: GM Non-Admin Reason: Per Protocol Comments: FSBS 145 Ondansetron HCl (Ondansetron Inj 2 Mg/Ml Inj 2 Ml) 4 mg IVP Q6H PRN; Protocol PRN Reason: NAUSEA OR VOMITING Stop: 04/09/25 16:17 Pantoprazole Sodium (Pantoprazole Inj 40 Mg Vial) 40 mg IVP Q12HR WALE Stop: 04/09/25 20:59 Sertraline HCl (Sertraline Hcl 25 Mg Tablet) 150 mg PO HS WALE Stop: 04/09/25 20:59 Discontinued Medications Morphine Sulfate (Morphine Sulf Inj 4 Mg/Ml Vial) 4 mg IVP NOW ONE Stop: 03/10/25 15:59 Last Admin: 03/10/25 16:15 Dose: 4 mg Documented By: GM Pantoprazole Sodium (Pantoprazole Inj 40 Mg Vial) 40 mg IVP X1 ONE Stop: 03/10/25 10:41 Last Admin: 03/10/25 10:56 Dose: 40 mg Documented By: GM Pantoprazole Sodium (Pantoprazole Inj 40 Mg Vial) 40 mg IVP X1 ONE Stop: 03/10/25 17:06 Last Admin: 03/10/25 17:24 Dose: 40 mg Documented By: GM See above Consultations Consultation(s) initiated? (list below): Yes Consultation #1 (Physician, Specialty, Details): See course Diagnosis Differential diagnosis altered mental status: altered mental status, hyponatremia, subarachnoid hemorrhage, sepsis and other (GI bleed ) Most likely diagnosis given after review of the tests above:: GI bleed Altered mental state Admission Indicated Admission indicated?: indicated Admission Request Was there a request for admission?: Yes Admission Attestation Admission request attestation: Discussed case with [] from Hospitalist service regarding admission. Discussed patients ED course, exam findings, labs, and radiology results. The Hospitalist [agrees,declines] to accept the patient for admission. Disposition Plan Disposition Plan: Admit Discharge Plan Plan Patient Disposition: Admit Acute Care w/in Hospital Prescriptions/Referrals Prescriptions/Med Rec: No Action calcium acetate 667 mg Tablet 1,334 mg PO TID Rx Instructions: after every meal glipizide 5 mg Tablet 5 mg PO QDAY atorvastatin 40 mg tablet 40 mg PO QDAY Patient Comments: TOME JAMES TABLETA TODOS LOS D FOR 90 DAYS carvedilol 6.25 mg tablet 6.25 mg PO BID Patient Comments: TOME JAMES TABLETA DOS VECES AL D A nifedipine 90 mg tablet extended release 90 mg PO BID Patient Comments: TOME JAMES TABLETA TODOS LOS D EN EST MELLISSA VAC O FOR 90 DAYS insulin glargine [Basaglar KwikPen U-100 Insulin] 100 unit/mL (3 mL) insulin pen See Rx Instructions .ROUTE .COMPLEX Patient Comments: INYECTE 15 UNIDADES DEBAJO DE LA PIEL EN LA MANANA Y 15 UNIDADES EN LA TARDE Rx Instructions: INYECTE 15 UNIDADES DEBAJO DE LA PIEL EN LA MANANA Y 15 UNIDADES EN LA TARDE hydralazine 50 mg Tablet 50 mg PO TID PRN (Reason: SBP >150) Qty: 90 0RF hydrocodone-acetaminophen 5-325 mg tablet 1 tab PO TID MDD 15mg PRN (Reason: pain) Qty: 18 0RF sertraline 100 mg tablet 150 mg PO DAILY Patient Comments: TAKE 1.5 TABLETS POR V A ORAL TODOS LOS D Referrals: No Primary/Family,Physician [Primary Care Provider] - In 1 week Problem List Clinical Impression: GI bleed, Altered mental state, Abdominal pain Patient/Caregiver Discharge Instructions Print Language: Indonesian Stand Alone Forms: [facility] Award Info., Patient Portal Info Letter
--- NOTE | 2025-03-10 10:26 | PC.NURSE ---
DR. PALACIO MADE AWARE OF INITIAL NIHSS SCORE; PER DR. PALACIO, PT APPEARS MORE GENERALLY CONFUSED; PT STILL RESPONDING TO NOXIOUS STIMULI. NO STROKE ALERT AT THIS TIME.
--- NOTE | 2025-03-10 10:42 | XR_ITS ---
EXAMINATION: AP chest single view TECHNIQUE: Portable AP sitting chest single view Date and time: March 10, 2025, 1106 hours, comparison October 17, 2024 INDICATIONS: Altered mental status today FINDINGS: Mild heart failure Mild enlargement cardiac contour with prominent vascular congestion Prominent osteopenia IMPRESSION: Early heart failure
--- NOTE | 2025-03-10 10:42 | XR_ITS ---
Examination: CT brain head without contrast. 2-D sagittal coronal reconstructions Date and time of exam: March 10, 2025, 1359 hours INDICATIONS: Altered mental status today Technique: Multiple CT axial sections of the brain have been obtained, 5 mm slice thickness. Contrast has not been administered. 2-D sagittal, coronal reconstructions have been obtained Low dose protocols were performed. One or more of the following dose reduction techniques were used; automated exposure control, adjustment of the mA and/or KV according to patient size, use of iterative reconstruction technique. Findings: No significant ventricular enlargement. Intra-axial or extra-axial hemorrhage density is not seen. No mass effect or midline shift Basal cisterns are not remarkable. Fourth ventricle is midline. Cranial vault intact. Impression: Negative for acute hemorrhage, mass effect or midline shift Advise clinical correlation and follow-up accordingly
--- NOTE | 2025-03-10 10:42 | XR_ITS ---
Examination: CT abdomen with intravenous contrast CT pelvis with intravenous contrast 2-D coronal reconstructions 2-D sagittal reconstructions Date and time of exam: March 10, 2025, 1406 hours, comparison 02/03/2024 INDICATIONS: Gastrointestinal bleeding today. CTDI: vol (mGy) 8.57 DLP: (mGycm) 448 Technique: Multiple axial sections of the abdomen and pelvis have been obtained. 64 slice high-resolution scanner used. 3 mm axial sections have been obtained, post intravenous injection 60 cc Isovue 370 2-D sagittal, coronal reconstructions obtained. Low dose protocols were performed. One or more of the following dose reduction techniques were used; automated exposure control, adjustment of the mA and/or KV according to patient size, use of iterative reconstruction technique. Findings: Moderate enlargement cardiac contour with prominent vascular congestion Cirrhosis, liver enlarged with irregular contour Mild ascites Suspicious for esophageal varices No pancreatic mass No splenic lesion Aorta normal size Atrophic kidneys no hydronephrosis 18 mm fat-containing umbilical hernia No bowel obstruction Atrophic uterus Contracted urinary bladder Severe osteopenia IMPRESSION: Moderate enlargement cardiac contour with prominent vascular congestion Cirrhosis Mild ascites Suspicious for esophageal varices Atrophic kidneys
[2025-03-10 10:51] LABS: Collection Type, Urine Catheter
[2025-03-10 10:58] LABS: OBS Developer Expiration Date 2027-02-28; OBS Developer Lot # 4-24-551749; OBS Performed By MADRG3; OBS QC OK? Yes; Occult Blood, Stool Positive (Negative)
[2025-03-10 11:16] LABS: Basophils # (Auto) 0.0 Thou/mm3 (0.0-0.2); Basophils % (Auto) 0 % (0-2.5); Eosinophils # (Auto) 0.1 Thou/mm3 (0.0-0.5); Eosinophils % (Auto) 1 % (0-10); Hematocrit 20.5 % (36.0-46.0); Immature Granulocytes Auto 0.06 Thou/mm3 (0.00-0.00); Lymphocytes # (Auto) 0.9 Thou/mm3 (1.0-4.8); Lymphocytes % (Auto) 13 % (10-50); Mean Corpuscular HGB Conc 34.6 g/dl (31.0-37.0); Mean Corpuscular Hemoglobin 35.9 pg (25.0-35.0); Mean Corpuscular Volume 104 fL (80-100); Monocytes # (Auto) 0.4 Thou/mm3 (0.0-0.8); Monocytes % (Auto) 5 % (0-12); Neutrophils # (Auto) 5.9 Thou/mm3 (1.8-7.7); Neutrophils % (Auto) 80 % (37-80); Nucleated Red Blood Cell # 0.00 Thou/mm3 (0.00-0.00); Nucleated Red Blood Cell % 0 /100 WBC (0); Platelet Count 117 Thou/mm3 (140-440); RDW Standard Deviation 54.6 fL (36.4-46.3); Red Blood Count 1.98 Miln/mm3 (4.00-5.20); White Blood Count 7.3 Thou/mm3 (3.6-11.0)
[2025-03-10 11:25] LABS: Hemoglobin 7.1 g/dL (12.0-16.0)
[2025-03-10 11:34] LABS: Bilirubin,Urine Negative (Negative); Blood,Urine 2+ (Negative); Clarity,Urine Turbid (Clear/Hazy); Color,Urine Yellow (Lt Yel-Yel); Glucose, Urine Trace (Negative); Ketones,Urine Negative (Negative); Leukocyte Esterase,Urine Positive (Negative); Nitrite,Urine Negative (Negative); PH,Urine 5.5 (5.0-7.0); Protein,Urine 2+ (Neg - Trace); RBC,Urine 22 /hpf (0-3); Specific Gravity,Urine 1.023 (1.001-1.035); Squamous Epithelial Cell,Urine 3 /hpf (0-5); Urobilinogen,Urine Negative mg/dL (0.0-1.0); WBC,Urine 287 /hpf (0-5)
[2025-03-10 11:38] LABS: Culture Indicated,Urine Yes
[2025-03-10 11:48] LABS: INR 1.1 (0.9-1.3); Partial Thromboplastin Time 36.2 Seconds (22.0-36.0); Prothrombin Time 11.4 Seconds (9.0-12.2)
[2025-03-10 11:50] LABS: Ammonia 31 uMol/L (11-32)
[2025-03-10 11:52] LABS: Alanine Aminotransferase 21 U/L (10-49); Albumin, Serum 4.7 gm/dL (3.4-4.8); Albumin/Globulin Ratio 1.6 (1.2-2.2); Alkaline Phosphatase 187 U/L (46-116); Anion Gap 18 (7-16); Aspartate Amino Transferase 18 U/L (0-34); BUN/Creatinine Ratio 8 Ratio (12-20); Bilirubin,Total 0.2 mg/dL (0.3-1.2); Blood Urea Nitrogen 30 mg/dL (9-23); Calcium 9.1 mg/dL (8.3-10.6); Calcium (Corrected) 9.1 mg/dL (8.5-10.1); Carbon Dioxide 26.6 mMol/L (20.0-31.0); Chloride 91 mMol/L (98-107); Creatinine (Component) 3.8 mg/dL (0.6-1.3); Estimated Creatinine Clearance 12.1 mL/min (>60); Globulin 2.9 gm/dL (2.3-3.5); Glucose 108 mg/dL (74-106); Magnesium 2.0 mg/dL (1.6-2.6); Osmolality,Calculated 279 (275-295); Potassium 3.5 mMol/L (3.4-5.1); Sodium 136 mMol/L (136-145); Total Protein 7.6 gm/dL (5.7-8.2); eGFR 13 See Note
--- NOTE | 2025-03-10 13:10 | PC.NURSE ---
VERBAL CONSENT OVER TELEPHONE RECEIVED FOR BLOOD TRANSFUSION FROM PT'S DAUGHTER, HENRIQUE HANDY, AT THIS TIME. TYESHA MARTIN RN WITNESS WITH THIS RN.
--- NOTE | 2025-03-10 13:33 | PC.NURSE ---
PER TOUCHER UP, PT WILL NEED TO RECEIVE DIALYSIS 24 HOURS AFTER RECEIVING IV CONTRAST FOR CT IMAGING. DR. Alexx PALACIO MADE AWARE; PER DR. PALACIO, THE PLAN IS TO ADMIT PT AT THIS TIME.
[2025-03-10 16:15] LABS: Lactate (Lactic Acid) 0.8 mMol/L (0.4-2.0)
[2025-03-10] MEDS: MORPHINE SULF INJ 4 MG/ML VIAL IVP (16:15)
--- NOTE | 2025-03-10 16:34 | ESHP_ITS ---
<Statement entered by Jermaine Bravo MD - 03/10/25 19:49> 59 y/o F with PMH of ESRD on HD MWF 2/2 diabetic nephropathy, HTN, IDDM2, asthma, GERD and depression was admitted to the hospital on 03/10/2025 due to GI bleed in the setting of esophageal varices on CT imaging along with black starry stools. Patient states she started having diarrhea around 4-5 days ago. Today at HD felt very week and was told to come to ED. Hgb was 7.1 which was a drop from around 12, 3 months priors. GI was consulted. In summary: #GI bleed #Acute blood loss anemia GI consulted protonix 40mg BID 1 PRBC to be transfused Octreotide and rocephin I have reviewed the note and agree with the resident's assessment & plan with exceptions as above. I have personally reviewed labs, imaging, home meds/prior records, examined the patient, formulated and discussed management plan with my attending Jermaine Bravo PGY2 Disclaimer: Even though this this note was dictated by speech recognition and even though it was carefully revised there may still be minor errors in water purification chemist due to voice recognition software. Documentation for date of: 03/10/25 HPI History of Present Illness Chief complaint: melena and SOB History of present illness: Donna Mcdermott 59F pmhx significant for ESRD on HD MWF 2/2 diabetic nephropathy, HTN, IDDM2, asthma, GERD and depression who presents with worsening weakness and SOB following HD today. Patient reports usually she is weak with SOB following HD, but today more persistent and worse. Per patient, weakness and SOB have been present since 03/05 with black watery stools with worsening abdominal pain, greatest at RUQ but generalized. Has never occurred before. Does produce urine and denies history of liver disease. Endorses orthopnea, denies PND or dyspnea on exertion. Denies hematochezia, hematemesis, N/V or fever/chills. Denies recent travel, illnesses or recent diet changes. PMHx: as above Surgical Hx: C section, cholecystectomy, hernia repair FHx: Denies familial cardiac or cancer hx, mother had lung disease Social Hx: denies smoking, alcohol or recreational/illicit drug use Allergies: NKDA Medications: per med rec In ED, BP 145/69 HR 75 RR 18 afebrile satting 97% RA, WBC 7.3, Hgb 7.1, MCV 104, platelets 117, K 3.5, Cl 91, bicarb 26, AG 18, BUN 30, Cr 3.8, lactic acid 0.8. In ED, given pantoprazole, morphine and ceftriaxone and 1u pRBC. CT head neg for acute processes, CXR early HF, CTAP enlargement of cardiac contour, vascular congestion, cirrhosis liver enlarged with irregular contour, mild ascites, suspicious for esophageal varices, atrophic kidneys. Patient was admitted for further workup and management of GIB. Review of Systems Review of Systems Systems Reviewed: All systems reviewed, normal except as documented Exam Vital Signs Temp Pulse Resp BP Pulse Ox O2 Del Method 98.2 F 82 13 171/64 H 97 Room Air 03/10/25 15:40 03/10/25 15:40 03/10/25 15:40 03/10/25 15:40 03/10/25 15:40 03/10/25 15:38 Narrative Exam GENERAL: AOx3, tearful, shallow breaths due to pain HEENT: mucous membranes moist, bilateral sclera anicteric CARDIOVASCULAR: regular rate and rhythm, S1/S2 present, 2/6 systolic murmur, +LAVF with palpable thrill PULMONARY: expiratory wheezes ABDOMINAL: soft, non-distended, bowel sounds decreased, generalized moderate abdominal tenderness greatest at RUQ EXTREMITIES: no peripheral edema SKIN: warm and dry, intact, no rashes NEURO: CN II-XII grossly intact, no focal deficits, alert, following commands Results: Labs 03/10/25 19:25 03/10/25 11:23 Labs: Short CBC 03/10/25 Range/Units 10:40 WBC 7.3 (3.6-11.0) Thou/mm3 Hgb 7.1 L (12.0-16.0) g/dL Hct 20.5 L* (36.0-46.0) % Plt Count 117 L (140-440) Thou/mm3 BMP 03/10/25 11:23 Sodium 136 Potassium 3.5 Chloride 91 L Carbon Dioxide 26.6 BUN 30 H Creatinine 3.8 H Glucose 108 H Calcium 9.1 Liver Function 03/10/25 Range/Units 11:23 Total Bilirubin 0.2 L (0.3-1.2) mg/dL AST 18 (0-34) U/L ALT 21 (10-49) U/L Alkaline Phosphatase 187 H (46-116) U/L Albumin 4.7 (3.4-4.8) gm/dL Urine 03/10/25 Range/Units 10:45 Urine Color Yellow (Lt Yel-Yel) Urine Clarity Turbid A (Clear/Hazy) Urine pH 5.5 (5.0-7.0) Ur Specific [place] 1.023 (1.001-1.035) Urine Protein 2+ A (Neg - Trace) Urine Glucose (UA) Trace (Negative) Quality Measures Quality Measures none Medications Home Medications and Allergies Home Medications ?Medication ?Instructions ?Recorded ?Confirmed ?Type glipizide 5 mg tablet 5 mg PO QDAY 08/12/19 History atorvastatin 40 mg tablet 40 mg PO QDAY 10/07/2110/17 History carvedilol 6.25 mg tablet 6.25 mg PO BID 10/07/2109/27 History calcium acetate 667 mg tablet 1,334 mg PO TID 10/13/21 02/03/24 History nifedipine 90 mg tablet,extended 90 mg PO BID 02/02/22 10/17/24 History release insulin glargine 100 unit/mL (3 See Rx Instructions .R oute .COMPLEX 03/09/22 10/18/24 History mL) subcutaneous pen (Basaglar KwikPen U-100 Insulin) sertraline 100 mg tablet 150 mg PO DAILY 10/17/24 History Allergies Allergy/AdvReac Type Severity Reaction Status Date / Time No Known Allergies Allergy Verified 03/10/25 15:48 Visit Medications Acetaminophen (Acetaminophen 325 Mg Tablet) 650 mg PO Q6H PRN PRN Reason: Fever >100.4 or pain Stop: 04/09/25 16:11 Calcium Acetate (Calcium Acetate 667 Mg Tablet) 1,334 mg PO TIDWM WALE Stop: 04/09/25 17:29 Dextrose (Dextrose 50%-Water Inj 50 Ml Syringe) 25 ml IV Q15MIN PRN PRN Reason: BG 50-70 responsive npo pt Stop: 04/09/25 16:22 Dextrose (Dextrose 50%-Water Inj 50 Ml Syringe) 50 ml IV Q15MIN PRN PRN Reason: BG <50 OR BG <70 & pt unresponsive Stop: 04/09/25 16:22 Glucagon (Glucagon Inj 1 Mg Vial) 1 mg IM Q15MIN PRN PRN Reason: BG <70, and no IV access Octreotide Acetate 1,000 mcg/ (Sodium Chloride) 102 mls @ 5.1 mls/hr IV .Q20H WALE; Protocol Stop: 03/15/25 16:22 Ceftriaxone Sodium/Dextrose (Rocephin/D5w 1gm Iv Premix) 1 gm in 50 mls @ 100 mls/hr IV QDAY WALE Stop: 03/17/25 16:23 Octreotide Acetate 1,000 mcg/ (Sodium Chloride) 102 mls @ 5.1 mls/hr IV .Q20H ONE; Protocol Stop: 03/11/25 12:29 Insulin Human Lispro (Insulin Lispro (Admelog) 1 Unit/0.01 Ml Unit) 0 unit SC Q6H WALE; Protocol Stop: 04/09/25 16:29 Ondansetron HCl (Ondansetron Inj 2 Mg/Ml Inj 2 Ml) 4 mg IVP Q6H PRN; Protocol PRN Reason: NAUSEA OR VOMITING Stop: 04/09/25 16:17 Pantoprazole Sodium (Pantoprazole Inj 40 Mg Vial) 40 mg IVP Q12HR WALE Stop: 04/09/25 20:59 Sertraline HCl (Sertraline Hcl 25 Mg Tablet) 150 mg PO HS WALE Stop: 04/09/25 20:59 Discontinued Medications Morphine Sulfate (Morphine Sulf Inj 4 Mg/Ml Vial) 4 mg IVP NOW ONE Stop: 03/10/25 15:59 Last Admin: 03/10/25 16:15 Dose: 4 mg Pantoprazole Sodium (Pantoprazole Inj 40 Mg Vial) 40 mg IVP X1 ONE Stop: 03/10/25 10:41 Last Admin: 03/10/25 10:56 Dose: 40 mg Assessment & Plan Plan Donna Baldemar 59F pmhx significant for ESRD on HD MWF 2/2 diabetic nephropathy, HTN, IDDM2, asthma, GERD and depression who presents to [facility] ED with worsening weakness, SOB, and melena, admitted for GIB workup. #GIB, upper vs lower #Acute posthemorrhagic macrocytic anemia #Melena Presents with melena since 03/05 with associated worsening weakness and SOB. On admission Hgb 7.1, in 11/2024 Hgb 12. FOBT +. Lactic acid 0.8. Patient denies hx of cirrhosis and denies hx of daily alcohol use. CTAP enlargement of cardiac contour, vascular congestion, cirrhosis liver enlarged with irregular contour, mild ascites, suspicious for esophageal varices, atrophic kidneys Ddx: upper GIB vs lower GIB with possible esophageal varicies s/p pantoprazole 80 mg x1 in ED Plan: - GI consulted, recs appreciated: CLD, then NPO at midnight, endoscopy tomorrow - Octreotide ggt, ppx ceftriaxone 1g QD for SBP - IV pantoprazole 40 mg BID - 1pRBC transfusing now, f/u post transfusion H&H - No fluids for now as patient has possible hx of HFpEF and current mild ascities - Tylenol and dilaudid prn for pain #UTI Denies urinary symptoms, does produce a little urine per patient. UA on admission 2+ protein, 2+ blood, +LE, nitrites neg, RBC 22, WBC 287. Plan: - Ceftriaxone as above - F/u UCx #ESRD on HD (MWF) 2/[address] Cortes. Finished HD session 03/10 per patient. AVF present on L arm patent with palpable thrill. Plan: - Nephrology consulted, recs appreciated - Continue home calcium acetate 667 mg x3 TID - Avoid nephrotoxic meds and renally dose #HTN #IDDM2 #Diabetic neuropathy Per chart review, takes nifedipine ER 60 mg BID, carvedilol 6.25 mg BID and hydralazine 50 mg prn for SBP >150. Patient reports being adherent to meds. Does not know what meds she takes and defers to daughter. Reports taking insulin, does not remember dose. Per pharm review, takes gabapentin 300 mg TID. Plan: - Hold antihypertensive meds iso GIB and likely hypertensive 2/2 blood loss - SSI step [address] - F/u A1c - Hold gabapentin #GERD Plan: - IV pantoprazole 40 mg BID as above #Depression #Asthma Per history. Reports does not use inhaler Plan: - Duoneb q2h prn - Continue home sertraline 150 mg QD Hospital management: Lines: PIV Diet: CLD, NPO after midnight Bowel: none GI prophylaxis: IV pantoprazole 40 mg BID DVT prophylaxis: SCDs, hold blood thinners iso GIB Disposition: tele, pending EGD CODE STATUS: DNR Plan of care discussed with attending Dr. Cabrear, and PGY-2 Dr. Carson. Otilia Vicente DO PGY-1 Internal Medicine Attending Provider Attestation/Addendum I have discussed and was present for the essential components of the history, physical examination, diagnosis, and treatment plan with the resident. I agree with the patient's care as documented by the resident and amended herein by me. Juancarlos Cabrera DO. Although this document has been carefully reviewed, there may still be some phonetic and other typographical errors. These errors are purely grammatical due to imperfections in the software program and should not be construed in any way to compromise the substance of the patient's medical care during this visit.
[2025-03-10] MEDS: cefTRIAXone/D5w 1gm IV premix 1 GM/50 ML BAG IV (16:43)
--- NOTE | 2025-03-10 16:49 | PD.RESCONSUL ---
HPI Data of Consult Primary Care Provider: Physician No Primary/Family Consult Narrative Reason for consult: acute macrocytic anemia History of present illness: Mansoor is a 59-year-old female with a past medical history of ESRD on HD M/W/ (follows Dr. Cortes), cirrhosis, hypertension, hyperlipidemia, type 2 diabetes mellitus, asthma, GERD and depression who was BIBA from dialysis for altered mental status and weakness, patient reports having black tarry stools for the past 4 days. She states that she was feeling poorly last week which prevented her from attending her monday and monday dialysis sessions. She had dialysis 03/10,per her usual schedule with 3L off. Patient had recent admission in 09/2024 for acute hypoxic respiratory failure, treated with abx. ROS Edorses melena, subjective fever, malaise, abdominal pain, chills, dyspnea, generalized weakness. ED course Vitals : bp 145-69 hypertensive, otherwise unremarkable, afebrile, satting well on RA Labs notable for Hgb 7.1 (baseline 11), MCV 104, Cr 3.8 (baseline 3.2) , FOBT + Imaging notable for CTAP with Moderate enlargement cardiac contour with prominent vascular congestion, Cirrhosis, Mild ascites, Suspicious for esophageal varices, Atrophic kidneys, CT head Negative for acute hemorrhage, mass effect or midline shift. Tx: 1 unit PRBC, morphine, ceftriaxone, protonix cc:: cc: Exam Vital Signs Temp Pulse Resp BP Pulse Ox O2 Del Method 98.2 F 82 13 171/64 H 97 Room Air 03/10/25 15:40 03/10/25 15:40 03/10/25 15:40 03/10/25 15:40 03/10/25 15:40 03/10/25 15:38 Narrative Exam GENERAL: no acute distress, AAO x3, fatigued, somnolent but arousable to voice. HEENT: Head AT/ NC. Mucous membranes dry. PERRL. NECK: Supple, no lymphadenopathy, no carotid bruits. CARDIOVASCULAR: RRR.systolic murmor No pitting edema of bilateral LEs. RESPIRATORY: CTAB. No wheezing, rhonchi, crackles. GASTROINTESTINAL: Abdomen soft, tender diffusely but worse at the epigastrum no palpable masses. Bowel sounds present, voluntary guarding, MUSCULOSKELETAL:? No cyanosis or edema, no visible joint swelling. NEUROLOGICAL: CN II-XII grossly intact. No focal deficits. Sensation intact, symmetric. PSYCHIATRIC: Awake and alert, not agitated, normal mood and affect. SKIN: very dark lower extremities, shiny, with skin wrinkling . Results Labs 03/11/25 04:56 03/11/25 04:56 Labs: Short CBC 03/10/25 Range/Units 10:40 WBC 7.3 (3.6-11.0) Thou/mm3 Hgb 7.1 L (12.0-16.0) g/dL Hct 20.5 L* (36.0-46.0) % Plt Count 117 L (140-440) Thou/mm3 BMP 03/10/25 11:23 Sodium 136 Potassium 3.5 Chloride 91 L Carbon Dioxide 26.6 BUN 30 H Creatinine 3.8 H Glucose 108 H Calcium 9.1 Liver Function 03/10/25 Range/Units 11:23 Total Bilirubin 0.2 L (0.3-1.2) mg/dL AST 18 (0-34) U/L ALT 21 (10-49) U/L Alkaline Phosphatase 187 H (46-116) U/L Albumin 4.7 (3.4-4.8) gm/dL Urine 03/10/25 Range/Units 10:45 Urine Color Yellow (Lt Yel-Yel) Urine Clarity Turbid A (Clear/Hazy) Urine pH 5.5 (5.0-7.0) Ur Specific [place] 1.023 (1.001-1.035) Urine Protein 2+ A (Neg - Trace) Urine Glucose (UA) Trace (Negative) Quality Measures Quality Measures VTE prophylaxis Medications Home Medications and Allergies Home Medications ?Medication ?Instructions ?Recorded ?Confirmed ?Type glipizide 5 mg tablet 5 mg PO QDAY 08/12/19 03/10/25 History atorvastatin 40 mg tablet 40 mg PO HS 10/07/21 03/10/25 History carvedilol 6.25 mg tablet 6.25 mg PO BID 10/07/21 03/10/25 History calcium acetate 667 mg tablet 1,334 mg PO TID 10/13/21 03/10/25 History nifedipine 90 mg tablet,extended 90 mg PO QDAY 02/02/22 03/10/25 History release insulin glargine 100 unit/mL (3 20 unit subcut QDAY 03/09/22 03/10/25 History mL) subcutaneous pen (Basaglar KwikPen U-100 Insulin) sertraline 100 mg tablet 50 mg PO DAILY 10/17/24 03/10/25 History albuterol 90 mcg/actuation aerosol 90 mcg inhalation [id number] sob and 03/10/25 03/10/25 History inhaler wheezing cholecalciferol (vitamin D3) 25 1,000 unit PO QDAY 03/10/25 03/10/25 History mcg (1,000 unit) capsule (Vitamin D3) famotidine 20 mg tablet 20 mg PO QDAY 03/10/25 03/10/25 History hydralazine 50 mg tablet 50 mg PO TID 03/10/25 03/10/25 History lidocaine 5 % topical patch 1 patch topical Q24H 03/10/25 03/10/25 History Allergies Allergy/AdvReac Type Severity Reaction Status Date / Time No Known Allergies Allergy Verified 03/10/25 15:48 Visit Medications Acetaminophen (Acetaminophen 325 Mg Tablet) 650 mg PO Q6H PRN; Protocol PRN Reason: Fever >100.4 or pain Stop: 04/09/25 16:11 Calcium Acetate (Calcium Acetate 667 Mg Tablet) 1,334 mg PO TIDWM WALE Stop: 04/09/25 17:29 Dextrose (Dextrose 50%-Water Inj 50 Ml Syringe) 25 ml IV Q15MIN PRN PRN Reason: BG 50-70 responsive npo pt Stop: 04/09/25 16:22 Dextrose (Dextrose 50%-Water Inj 50 Ml Syringe) 50 ml IV Q15MIN PRN PRN Reason: BG <50 OR BG <70 & pt unresponsive Stop: 04/09/25 16:22 Glucagon (Glucagon Inj 1 Mg Vial) 1 mg IM Q15MIN PRN PRN Reason: BG <70, and no IV access Hydromorphone HCl (Hydromorphone Inj 2 Mg/Ml Vial) 0.5 mg IVP Q4HR PRN PRN Reason: Pain 4-10 Stop: 03/15/25 16:36 Octreotide Acetate 1,000 mcg/ (Sodium Chloride) 102 mls @ 5.1 mls/hr IV .Q20H WALE; Protocol Stop: 03/15/25 16:22 Ceftriaxone Sodium/Dextrose (Rocephin/D5w 1gm Iv Premix) 1 gm in 50 mls @ 100 mls/hr IV QDAY WALE Stop: 03/17/25 16:23 Last Admin: 03/10/25 16:43 Dose: 100 mls/hr Octreotide Acetate 1,000 mcg/ (Sodium Chloride) 102 mls @ 5.1 mls/hr IV .Q20H ONE; Protocol Stop: 03/11/25 12:29 Insulin Human Lispro (Insulin Lispro (Admelog) 1 Unit/0.01 Ml Unit) 0 unit SC Q6H WALE; Protocol Stop: 04/09/25 16:29 Last Admin: 03/10/25 16:38 Dose: Not Given Ondansetron HCl (Ondansetron Inj 2 Mg/Ml Inj 2 Ml) 4 mg IVP Q6H PRN; Protocol PRN Reason: NAUSEA OR VOMITING Stop: 04/09/25 16:17 Pantoprazole Sodium (Pantoprazole Inj 40 Mg Vial) 40 mg IVP Q12HR WALE Stop: 04/09/25 20:59 Sertraline HCl (Sertraline Hcl 25 Mg Tablet) 150 mg PO HS WALE Stop: 04/09/25 20:59 Discontinued Medications Morphine Sulfate (Morphine Sulf Inj 4 Mg/Ml Vial) 4 mg IVP NOW ONE Stop: 03/10/25 15:59 Last Admin: 03/10/25 16:15 Dose: 4 mg Pantoprazole Sodium (Pantoprazole Inj 40 Mg Vial) 40 mg IVP X1 ONE Stop: 03/10/25 10:41 Last Admin: 03/10/25 10:56 Dose: 40 mg Assessment & Plan Plan Mansoor is a 59-year-old female with a past medical history of ESRD on HD M// (follows Dr. Cortes), cirrhosis, hypertension, hyperlipidemia, type 2 diabetes mellitus, asthma, GERD and depression who was BIBA from dialysis for altered mental status and weakness, and 4 days of melena. Acute macrocytic anemia concerning for Upper GI Bleed? Possible variceal bleed 2/2 Cirrhosis GERD Hgb 7.1 (transfusing 1 unti prbc), Baseline Hgb 11 pt reported 4 days of melena, and presented with acute anemia and encephalopathy likely 2/2 acute drop in hgb. FOBT positive. CTAP with Plan - NPO pending EGD - IV fluids - IV protonix 40 mg BID - octreotide drip 50 /hr - Follow up post transfusion h and h - transfuse if Hgb <7 Cirrhosis suspect MASLD vs auto immune hepatittis Plan Follow up labs Ceruloplasmin AFP alpha 1 antitrypsin MARGA IFA screen Hepatitis Panel Copper HTN HLD ESRD on HD MWF(follows with Dr. Cortes) T2DM Depression -management per primary team Plan discussed with Dr. Naresh Gregory MD PGY1 Attending Provider Attestation/Addendum Case discussed in detail with the internal medicine team and our resident Dr. Gregory Imaging studies reviewed Laboratory data reviewed Plan is to have 2 units of PRBC Octreotide at 50 mcg/h Protonix 40 mg IV push every 12 Consent obtained for fiberoptic esophagogastroduodenoscopy with possible biopsy possible therapeutic intervention under intravenous moderate sedation scheduled for tomorrow Clear liquid diet till 9 AM tomorrow then n.p.o. except p.o. meds The etiology of her cirrhotic liver disease remains that based obscure we will do a complete workup and ordering everything to rule out chronic active hepatitis including AFP She should have a HCC screening every 6 months from this day forward as she had high risk of developing hepatocellular carcinoma
[2025-03-10] MEDS: OCTREOTIDE ACET INJ 1,000 MCG in SODIUM CHLORIDE 0.9% 100 ML 5.1 MCG IV (17:28)
--- NOTE | 2025-03-10 18:00 | PC.NURSE ---
DR. EDGAR AT BEDSIDE MADE AWARE PT'S HAD 10/10 ABD PAIN ON MIDLINE. PER DR. EDGAR, WILL PUT ORDERS IN.
--- NOTE | 2025-03-10 18:17 | PC.NURSE ---
PHARMACY CALLED AT THIS TIME REQUESTING FOR CALCIUM ACETATE TO BE BROUGHT TO ER; MEDICATION NOT LOADED IN ED PYXIS. PER PHARMACY, WILL BRING IT DOWN TO ED SOON.
--- NOTE | 2025-03-10 18:30 | PC.NURSE ---
PT PROVIDED WITH CLEAR LIQUID DIET TRAY FOR DINNER AT THIS TIME; PT'S DAUGHTER AT BEDSIDE AIDING TO FEED PT.
[2025-03-10] MEDS: CALCIUM ACETATE 667 MG TABLET 1334 MG PO (18:33)
[2025-03-10 19:36] LABS: Hematocrit 24.1 % (36.0-46.0)
[2025-03-10 19:43] LABS: Hemoglobin 8.3 g/dL (12.0-16.0)
[2025-03-10 20:33] LABS: Iron 258 mcg/dL (50-170); Percent Iron Saturation 100 % (20-55); Total Iron Binding Capacity 255 mcg/dL (250-425); Unsaturated Iron Binding 0 (225-295)
[2025-03-10] MEDS: HYDROmorphone INJ 2 MG/ML VIAL 0.5 MG IVP (21:05)
[2025-03-10 21:18] LABS: AFP Non-Pregnant 2.90 ng/mL (<8.10); Hepatitis A Antibody IgM Non Reactive (Non React); Hepatitis B Core Antibody IgM Equivocal (Non React); Hepatitis B Surface Antigen Non Reactive (Non React); Hepatitis C Antibody Non Reactive (Non React)
[2025-03-11] VITALS (17 sets, daily range): BP systolic 123–181; BP diastolic 41–99; PULSE 68–81; RESP 10–82; TEMP 36.4–37; O2SAT 92–100; BMI 27.9
[2025-03-11] MEDS: HYDROmorphone INJ 2 MG/ML VIAL 0.5 MG IVP ×3 (04:39→17:01)
[2025-03-11 05:25] LABS: Basophils # (Auto) 0.0 Thou/mm3 (0.0-0.2); Basophils % (Auto) 0 % (0-2.5); Eosinophils # (Auto) 0.1 Thou/mm3 (0.0-0.5); Eosinophils % (Auto) 1 % (0-10); Hematocrit 22.6 % (36.0-46.0); Immature Granulocytes Auto 0.04 Thou/mm3 (0.00-0.00); Lymphocytes # (Auto) 0.9 Thou/mm3 (1.0-4.8); Lymphocytes % (Auto) 13 % (10-50); Mean Corpuscular HGB Conc 34.5 g/dl (31.0-37.0); Mean Corpuscular Hemoglobin 33.9 pg (25.0-35.0); Mean Corpuscular Volume 98 fL (80-100); Monocytes # (Auto) 0.4 Thou/mm3 (0.0-0.8); Monocytes % (Auto) 6 % (0-12); Neutrophils # (Auto) 5.6 Thou/mm3 (1.8-7.7); Neutrophils % (Auto) 80 % (37-80); Nucleated Red Blood Cell # 0.03 Thou/mm3 (0.00-0.00); Nucleated Red Blood Cell % 0 /100 WBC (0); Platelet Count 114 Thou/mm3 (140-440); RDW Standard Deviation 60.6 fL (36.4-46.3); Red Blood Count 2.30 Miln/mm3 (4.00-5.20); White Blood Count 7.0 Thou/mm3 (3.6-11.0)
[2025-03-11 05:54] LABS: Hemoglobin 7.8 g/dL (12.0-16.0)
[2025-03-11 05:56] LABS: Glucose Estimated Average 128 mg/dL (80-131); Hemoglobin A1C 6.1 % Hgb (4.8-6.0)
[2025-03-11 06:26] LABS: Alanine Aminotransferase 17 U/L (10-49); Albumin, Serum 4.1 gm/dL (3.4-4.8); Albumin/Globulin Ratio 1.5 (1.2-2.2); Alkaline Phosphatase 164 U/L (46-116); Anion Gap 18 (7-16); Aspartate Amino Transferase 22 U/L (0-34); BUN/Creatinine Ratio 7 Ratio (12-20); Bilirubin,Total 0.2 mg/dL (0.3-1.2); Blood Urea Nitrogen 39 mg/dL (9-23); Calcium 8.5 mg/dL (8.3-10.6); Calcium (Corrected) 8.5 mg/dL (8.5-10.1); Carbon Dioxide 26.3 mMol/L (20.0-31.0); Cardiac Risk Estimate 5.0 RATIO (3.7-5.6); Chloride 91 mMol/L (98-107); Cholesterol 99 mg/dL (132-200); Creatinine (Component) 5.4 mg/dL (0.6-1.3); Estimated Creatinine Clearance 8.5 mL/min (>60); Globulin 2.7 gm/dL (2.3-3.5); Glucose 161 mg/dL (74-106); HDL Cholesterol 20 mg/dL (40-60); LDL Cholesterol,Calculated 40 mg/dL (0-130); Magnesium 2.1 mg/dL (1.6-2.6); Osmolality,Calculated 282 (275-295); Phosphorous 6.1 mg/dL (2.4-5.1); Potassium 4.8 mMol/L (3.4-5.1); Sodium 135 mMol/L (136-145); Thyroid Stimulating Hormone 1.47 uIU/mL (0.55-4.78); Total Protein 6.8 gm/dL (5.7-8.2); Triglycerides 195 mg/dL (30-150); eGFR 9 See Note
[2025-03-11] MEDS: cefTRIAXone/D5w 1gm IV premix 1 GM/50 ML BAG IV (08:53)
[2025-03-11] MEDS: CALCIUM ACETATE 667 MG TABLET 1334 MG PO (08:53)
--- NOTE | 2025-03-11 10:45 | PD.RESCONSUL ---
HPI Data of Consult Consult date: 03/11/25 Requesting Physician: Oswaldo Cabrera DO Admitting Provider: Oswaldo Cabrera DO Attending Provider: Oswaldo Cabrera DO Primary Care Provider: Physician No Primary/Family Consult Narrative Reason for consult: ESRD on HD - dialysis management History of present illness: 59-year-old female with a past medical history significant for ESRD on hemodialysis (MWF) secondary to diabetic nephropathy, insulin-dependent diabetes mellitus type 2, hypertension, asthma, GERD, and depression, who presented to the ED on 03/10/2025 with progressive weakness, shortness of breath, and melena for the past several days. She reports black watery stools since 03/05 associated with abdominal discomfort, worse in the right upper quadrant. At her dialysis session yesterday, she was noted to be weak and was advised to come to the hospital. Initial labs revealed a hemoglobin of 7.1 (down from 12 g/dL three months prior). CT imaging showed cirrhotic liver morphology with mild ascites and suspected esophageal varices. She received 1 unit PRBC, IV pantoprazole, ceftriaxone, and octreotide infusion. GI was consulted and planned for endoscopic evaluation. Nephrology was consulted for continuation of dialysis management during hospitalization. The patient is well known to Dr. Cortes?s dialysis service and receives maintenance HD on MWF schedule. She completed her last HD session on 03/10 prior to admission and is tolerating dialysis today without complications. She denies chest pain, shortness of breath, nausea, vomiting, or leg swelling at this time. 03/11/25: Patient seen and examined at bedside during dialysis. Awake, alert, and cooperative. Reports feeling weak but otherwise stable. Denies chest pain, dyspnea, abdominal pain, nausea, vomiting, or fever. Appetite fair. No leg swelling. BP: 136/61, HR: 69. Labs: WBC 7.0, Hgb 7.8, Hct 22, Plt 114, Na 135, K 4.8, Cl 91, CO2 26, BUN 39, Cr 5.4, Glu 161, Ca 8.5, Mg 2.1, Phos 6.1, A1c 6.1. Patient remains hemodynamically stable. Here for routine dialysis per MWF schedule. cc:: cc: Oswaldo Cabrera DO Exam Vital Signs Temp Pulse Resp BP Pulse Ox O2 Del Method O2 Flow Rate 97.9 F 69 14 136/61 H 98 Nasal Cannula 2 03/11/25 08:00 03/11/25 08:00 03/11/25 08:00 03/11/25 08:00 03/11/25 08:00 03/11/25 08:00 03/11/25 08:00 Narrative Exam General: Awake, oriented ?3, mild fatigue noted. HEENT: Moist mucous membranes, anicteric sclerae. CVS: Regular rate and rhythm, no rubs, S1/S2 present. Resp: Lungs clear bilaterally, no wheezes/rales. Abdomen: Soft, non-distended, mild RUQ tenderness improving. Extremities: No edema. Skin: Warm, intact. Access: L AVF with palpable thrill and audible bruit. Results Labs 03/11/25 04:56 03/11/25 04:56 Labs: Short CBC 03/10/25 03/10/25 03/11/25 Range/Units 10:40 19:25 04:56 WBC 7.3 7.0 (3.6-11.0) Thou/mm3 Hgb 7.1 L 8.3 L 7.8 L (12.0-16.0) g/dL Hct 20.5 L* 24.1 L 22.6 L (36.0-46.0) % Plt Count 117 L 114 L (140-440) Thou/mm3 BMP 03/10/25 03/11/25 11:23 04:56 Sodium 136 135 L Potassium 3.5 4.8 D Chloride 91 L 91 L Carbon Dioxide 26.6 26.3 BUN 30 H 39 H Creatinine 3.8 H 5.4 H* D Glucose 108 H 161 H D Calcium 9.1 8.5 Liver Function 03/10/25 03/11/25 Range/Units 11:23 04:56 Total Bilirubin 0.2 L 0.2 L (0.3-1.2) mg/dL AST 18 22 (0-34) U/L ALT 21 17 (10-49) U/L Alkaline Phosphatase 187 H 164 H D (46-116) U/L Albumin 4.7 4.1 D (3.4-4.8) gm/dL Urine 03/10/25 Range/Units 10:45 Urine Color Yellow (Lt Yel-Yel) Urine Clarity Turbid A (Clear/Hazy) Urine pH 5.5 (5.0-7.0) Ur Specific [place] 1.023 (1.001-1.035) Urine Protein 2+ A (Neg - Trace) Urine Glucose (UA) Trace (Negative) Quality Measures Quality Measures VTE prophylaxis Medications Home Medications and Allergies Home Medications ?Medication ?Instructions ?Recorded ?Confirmed ?Type glipizide 5 mg tablet 5 mg PO QDAY 08/12/19 03/10/25 History atorvastatin 40 mg tablet 40 mg PO HS 10/07/21 03/10/25 History carvedilol 6.25 mg tablet 6.25 mg PO BID 10/07/21 03/10/25 History calcium acetate 667 mg tablet 1,334 mg PO TID 10/13/21 03/10/25 History nifedipine 90 mg tablet,extended 90 mg PO QDAY 02/02/22 03/10/25 History release insulin glargine 100 unit/mL (3 20 unit subcut QDAY 03/09/22 03/10/25 History mL) subcutaneous pen (Basaglar KwikPen U-100 Insulin) sertraline 100 mg tablet 50 mg PO DAILY 10/17/24 03/10/25 History albuterol 90 mcg/actuation aerosol 90 mcg inhalation [id number] sob and 03/10/25 03/10/25 History inhaler wheezing cholecalciferol (vitamin D3) 25 1,000 unit PO QDAY 03/10/25 03/10/25 History mcg (1,000 unit) capsule (Vitamin D3) famotidine 20 mg tablet 20 mg PO QDAY 03/10/25 03/10/25 History hydralazine 50 mg tablet 50 mg PO TID 03/10/25 03/10/25 History lidocaine 5 % topical patch 1 patch topical Q24H 03/10/25 03/10/25 History Allergies Allergy/AdvReac Type Severity Reaction Status Date / Time No Known Allergies Allergy Verified 03/10/25 15:48 Visit Medications Acetaminophen (Acetaminophen 325 Mg Tablet) 650 mg PO Q6H PRN; Protocol PRN Reason: Fever >100.4 or pain Stop: 04/09/25 16:11 Albuterol/Ipratropium (Albuterol/Ipratropium (Duoneb) Rt Niurka 3 Ml Nebu) 3 ml INH Q2HR PRN PRN Reason: SHORTNESS OF BREATH OR WHEEZE Stop: 04/09/25 16:58 Calcium Acetate (Calcium Acetate 667 Mg Tablet) 1,334 mg PO TIDWM WALE Stop: 04/09/25 17:29 Last Admin: 03/11/25 08:53 Dose: 1,334 mg Dextrose (Dextrose 50%-Water Inj 50 Ml Syringe) 25 ml IV Q15MIN PRN PRN Reason: BG 50-70 responsive npo pt Stop: 04/09/25 16:22 Dextrose (Dextrose 50%-Water Inj 50 Ml Syringe) 50 ml IV Q15MIN PRN PRN Reason: BG <50 OR BG <70 & pt unresponsive Stop: 04/09/25 16:22 Glucagon (Glucagon Inj 1 Mg Vial) 1 mg IM Q15MIN PRN PRN Reason: BG <70, and no IV access Hydromorphone HCl (Hydromorphone Inj 2 Mg/Ml Vial) 0.5 mg IVP Q4HR PRN PRN Reason: Pain 4-10 Stop: 03/15/25 16:36 Last Admin: 03/11/25 09:41 Dose: 0.5 mg Octreotide Acetate 1,000 mcg/ (Sodium Chloride) 102 mls @ 5.1 mls/hr IV .Q20H WALE; Protocol Stop: 04/10/25 12:28 Ceftriaxone Sodium/Dextrose (Rocephin/D5w 1gm Iv Premix) 1 gm in 50 mls @ 100 mls/hr IV QDAY WALE Stop: 03/17/25 16:23 Last Admin: 03/11/25 08:53 Dose: 100 mls/hr Octreotide Acetate 1,000 mcg/ (Sodium Chloride) 102 mls @ 5.1 mls/hr IV .Q20H ONE; Protocol Stop: 03/11/25 12:29 Last Admin: 03/10/25 17:28 Dose: 50 mcg/hr, 5.1 mls/hr Insulin Human Lispro (Insulin Lispro (Admelog) 1 Unit/0.01 Ml Unit) 0 unit SC Q6HR WALE; Protocol Stop: 04/10/25 11:59 Ondansetron HCl (Ondansetron Inj 2 Mg/Ml Inj 2 Ml) 4 mg IVP Q6H PRN; Protocol PRN Reason: NAUSEA OR VOMITING Stop: 04/09/25 16:17 Pantoprazole Sodium (Pantoprazole Inj 40 Mg Vial) 40 mg IVP Q12HR WALE Stop: 04/09/25 20:59 Last Admin: 03/11/25 08:53 Dose: 40 mg Sertraline HCl (Sertraline Hcl 25 Mg Tablet) 50 mg PO HS WALE Stop: 04/10/25 20:59 Discontinued Medications Insulin Human Lispro (Insulin Lispro (Admelog) 1 Unit/0.01 Ml Unit) 0 unit SC Q6H WALE; Protocol Stop: 04/09/25 16:29 Last Admin: 03/11/25 04:26 Dose: Not Given Morphine Sulfate (Morphine Sulf Inj 4 Mg/Ml Vial) 4 mg IVP NOW ONE Stop: 03/10/25 15:59 Last Admin: 03/10/25 16:15 Dose: 4 mg Pantoprazole Sodium (Pantoprazole Inj 40 Mg Vial) 40 mg IVP X1 ONE Stop: 03/10/25 10:41 Last Admin: 03/10/25 10:56 Dose: 40 mg Pantoprazole Sodium (Pantoprazole Inj 40 Mg Vial) 40 mg IVP X1 ONE Stop: 03/10/25 17:06 Last Admin: 03/10/25 17:24 Dose: 40 mg Sertraline HCl (Sertraline Hcl 25 Mg Tablet) 150 mg PO HS WALE Stop: 04/09/25 20:59 Last Admin: 03/10/25 22:55 Dose: Not Given Assessment & Plan Plan 59-year-old female with ESRD on HD (MWF) secondary to diabetic nephropathy, admitted for upper GI bleed due to suspected esophageal varices with acute blood loss anemia. Nephrology consulted for dialysis management and orders. # ESRD on HD Chronic MWF dialysis patient of Dr. Cortes, currently receiving HD today and tolerating well. Plan: Continue MWF dialysis schedule. Strict I/O and daily weights. Avoid nephrotoxic agents. Monitor BMP, Mg, Phos daily. Continue calcium acetate TID with meals. Transfuse PRBCs as needed per primary team, target Hgb >8. # Hyperphosphatemia Phos 6.1; on phosphate binder. Plan: Continue calcium acetate TID. Monitor phosphorus levels daily # Hyponatremia, mild Likely dilutional from volume status. Plan: Correct with dialysis fluid composition. Continue to monitor sodium with each session. # Acute blood loss anemia # Hypertension #HTN #IDDM2 #Diabetic neuropathy #GERD #Depression #Asthma #UTI Management per primary team ----- Plan discussed with attending physician Dr. Sophia Kendall MD PGY-1 Internal Medicine Attending Provider Attestation/Addendum Patient seen and examined with resident physician Dr. Kendall. Note reviewed, agree with findings and recommendations. Patient admitted with anemia. Dialysis scheduled for tomorrow Thank you Juancarlos for allowing me to participate in the care of Ms. Thompson
--- NOTE | 2025-03-11 10:58 | CHAP ---
Patient was visited by a Spiritual Care Volunteer on 03/11/2025 between 0905 and 1000 and received comfort, encouragement and/or prayer.
[2025-03-11] MEDS: OCTREOTIDE ACET INJ 1,000 MCG in SODIUM CHLORIDE 0.9% 100 ML 5.1 MCG IV (13:27)
--- NOTE | 2025-03-11 14:14 | PC.PT ---
PT eval only. Patient is refusing all further PT services both in the hospital and outside the hospital stating God will help her heal and she does not need further PT. PT and SPTA educated patient on the benefits and importance of continued PT for strengthening and balance training but she refused. Patient is safe to transfer to the bedside commode with 1 staff. Patient will be eval only due to patient refusing further PT services. RN made aware.
--- NOTE | 2025-03-11 15:48 | PC.SS ---
Patient is alert/oriented. Patient was able to verify demographics. Patient is Iranian speaking only. sawyer helper present. Patient admitted for GIB. Patient is independent with ADL's. Patient verbalized she lives with her daughter, Donna. Patient uses 02 at home, has a walker but is requesting a wheelchair. Patient is on hemodialysis with Dr. Cortes every M/W/F @ 5a.m. [facility] PCP: Dr. Macdonald @ [facility]. Pharmacy: [facility]. Patient pending EGD tonight. Discharge plan is to return home. alt medical decision maker: Donna Read, daughter,
--- NOTE | 2025-03-11 17:01 | ESPR_ITS ---
<Statement entered by Jermaine Bravo MD - 03/11/25 18:11> Patient was seen and examined at bedside this morning. No acute overnight events. No acute drop in hemoglobin this morning. Patient is pending EGD otherwise no other complaints at this time. Ordered 1 more PRBC in the setting of possible drop in hemoglobin tomorrow. I have reviewed the note and agree with the resident's assessment & plan with exceptions as above. I have personally reviewed labs, imaging, home meds/prior records, examined the patient, formulated and discussed management plan with my attending Jermaine Bravo PGY2 Disclaimer: Even though this this note was dictated by speech recognition and even though it was carefully revised there may still be minor errors in centerless grinder operator due to voice recognition software. Documentation for date of: 03/11/25 Subjective Subjective Interval history: Patient was seen and examined this morning; she was comfortable, with no overnight events. Nephrology consulted for continuation of dialysis, thank you for recommendations. Patient is now n.p.o. for EGD. Daughter states that she has gotten less pain medication today than before. Currently on 2 L O2. Creatnine increased from 3.8 to 5.4. Exam Vital Signs Temp Pulse Resp BP Pulse Ox O2 Del Method O2 Flow Rate 98.6 F 73 16 175/71 H 97 Nasal Cannula 2 03/11/25 16:00 03/11/25 16:00 03/11/25 16:00 03/11/25 16:00 03/11/25 16:00 03/11/25 16:00 03/11/25 16:00 Narrative Exam General: A/O x3, no acute distress, well-nourished, well-developed Eyes: PERRL, EOMI. Anicteric, vision grossly intact. Ears: No ear pain, no ear discharge, Hearing grossly intact. Nose: No nasal discharge. Mouth/Throat: Moist mucous membranes, no redness, no lesions. Neck: Neck supple, non-tender, no cervical lymphadenopathy. Lungs: expriatory wheezing, No accessory muscle use. Cardio: Normal S1/S2, regular rhythm, no murmurs, no JVD or carotid bruits. Abdomen: Soft, right sided abdominal tenderness, no palpable masses, peristalsis present, no guarding or rebound. Extremities: Symmetrical, no significant deformities, no peripheral edema , non-tender, peripheral pulses presents. Skin: No rashes, no lesions, warm to touch. Neuro: No focal neurological deficits. Psych: Cooperative, appropriate mood and effect. Objective Labs 03/12/25 05:47 03/12/25 05:47 Labs: Laboratory Results - last 24 hr 03/10/25 03/10/25 03/11/25 11:23 19:25 04:56 WBC 7.0 RBC 2.30 L Hgb 8.3 L 7.8 L Hct 24.1 L 22.6 L MCV 98 MCH 33.9 MCHC 34.5 RDW Std Deviation 60.6 H Plt Count 114 L Neut % (Auto) 80 Lymph % (Auto) 13 [place] % (Auto) 6 Eos % (Auto) 1 Baso % (Auto) 0 Neut # (Auto) 5.6 Lymph # (Auto) 0.9 L [place] # (Auto) 0.4 Eos # (Auto) 0.1 Baso # (Auto) 0.0 Immature Gran # (Auto) 0.04 H Absolute Nucleated RBC 0.03 H Immature Gran % 1 H Nucleated RBC % 0 Sodium 135 L Potassium 4.8 D Chloride 91 L Carbon Dioxide 26.3 Anion Gap 18 H BUN 39 H Creatinine 5.4 H* D Estim Creat Clear Calc 8.5 L eGFR 9 L* BUN/Creatinine Ratio 7 L Glucose [address] Glu mg/dL 128 Hemoglobin A1c 6.1 H Calculated Osmolality 282 Calcium 8.5 Corrected Calcium 8.5 Phosphorus 6.1 H Magnesium 2.1 Iron 258 H TIBC 255 Iron Saturation 100 H Unsat Iron Binding 0 L Total Bilirubin 0.2 L AST 22 ALT 17 Alkaline Phosphatase 164 H D Total Protein 6.8 Albumin 4.1 D Globulin 2.7 Albumin/Globulin Ratio 1.5 Triglycerides 195 H Cholesterol 99 L LDL Cholesterol, Calc 40 HDL Cholesterol 20 L Cholesterol/HDL Ratio 5.0 Tumor Marker AFP 2.90 TSH 1.47 Hepatitis A IgM Ab Non Reactive Hep Bs Antigen Non Reactive Hep B Core IgM Ab Equivocal Hepatitis C Antibody Non Reactive Blood Type O Positive Antibody Screen NEGATIVE Crossmatch See Detail Blood Bank Wristband ID Yes Quality Measures Quality Measures VTE prophylaxis Assessment & Plan Assessment Current Active Medications: Generic Name Dose Route Start Last Admin Trade Name Freq PRN Reason Stop Dose Admin Acetaminophen 650 mg 03/10/25 16:12 Acetaminophen 325 Mg Tablet PO 04/09/25 16:11 Q6H PRN Fever >100.4 or pain Protocol Albuterol/Ipratropium 3 ml 03/10/25 16:59 Albuterol/Ipratropium (Duoneb) Rt Niurka 3 Ml Nebu INH 04/09/25 16:58 Q2HR PRN SHORTNESS OF BREATH OR WHEEZE Calcium Acetate 1,334 mg 03/10/25 17:30 03/11/25 11:29 Calcium Acetate 667 Mg Tablet PO 04/09/25 17:29 Not Given TIDWM WALE Dextrose 25 ml 03/10/25 16:23 Dextrose 50%-Water Inj 50 Ml Syringe IV 04/09/25 16:22 Q15MIN PRN BG 50-70 responsive npo pt Dextrose 50 ml 03/10/25 16:23 Dextrose 50%-Water Inj 50 Ml Syringe IV 04/09/25 16:22 Q15MIN PRN BG <50 OR BG <70 & pt unresponsive Glucagon 1 mg 03/10/25 16:23 Glucagon Inj 1 Mg Vial IM Q15MIN PRN BG <70, and no IV access Hydromorphone HCl 0.5 mg 03/10/25 16:37 03/11/25 09:41 Hydromorphone Inj 2 Mg/Ml Vial IVP 03/15/25 16:36 0.5 mg Q4HR PRN Administration Pain 4-10 Octreotide Acetate 1,000 mcg/ 102 mls @ 5.1 mls/hr 03/11/25 12:29 03/11/25 13:27 Sodium Chloride IV 04/10/25 12:28 50 mcg/hr .Q20H WALE 5.1 mls/hr Protocol Administration 50 MCG/HR Ceftriaxone Sodium/Dextrose 1 gm in 50 mls @ 100 mls/hr 03/10/25 16:24 03/11/25 08:53 Rocephin/D5w 1gm Iv Premix IV 03/17/25 16:23 100 mls/hr QDAY WALE Administration Insulin Human Lispro 0 unit 03/11/25 12:00 03/11/25 11:29 Insulin Lispro (Admelog) 1 Unit/0.01 Ml Unit SC 04/10/25 11:59 Not Given Q6HR WALE Protocol Ondansetron HCl 4 mg 03/10/25 16:18 Ondansetron Inj 2 Mg/Ml Inj 2 Ml IVP 04/09/25 16:17 Q6H PRN NAUSEA OR VOMITING Protocol Pantoprazole Sodium 40 mg 03/10/25 21:00 03/11/25 08:53 Pantoprazole Inj 40 Mg Vial IVP 04/09/25 20:59 40 mg Q12HR WALE Administration Sertraline HCl 50 mg 03/11/25 21:00 Sertraline Hcl 25 Mg Tablet PO 04/10/25 20:59 HS WALE Plan Patient is a 59F with PMH of ESRD on hemodialysis diabetic nephropathy, HTN, T2DM, asthma, GERD and depression who presents to [facility] ED with worsening weakness, SOB, and melena, admitted for GI bleed workup on 03/10/25. #GIB, upper vs lower #Acute posthemorrhagic macrocytic anemia #Melena Melena since 03/05 with associated worsening weakness and SOB. 03/10/25 Hgb 7.1, 12/16/2024 Hgb 12. FOBT positive. Lactate 0.8. Patient denies hx of cirrhosis or daily alcohol use. CTAP enlargement of cardiac contour, vascular congestion, cirrhosis liver enlarged with irregular contour, mild ascites, suspicious for esophageal varices, atrophic kidneys Ddx: upper GIB vs lower GIB with possible esophageal varices s/p pantoprazole 80 mg x1 in ED 1 unit pRBCs transfused 03/10/25, Hgb 7.8 on 03/11/25 Plan: - GI consulted, recs appreciated: Endoscopy today PM - Octreotide at 50mcg/hr , ceftriaxone 1g daily for SBP - IV pantoprazole 40 mg BID - No fluids for now due to possible hx of HFpEF and current mild ascities - Tylenol and dilaudid prn for pain #ESRD #HTN #IDDM2 #Diabetic neuropathy Per chart review, takes nifedipine ER 60 mg BID, carvedilol 6.25 mg BID and hydralazine 50 mg prn for SBP >150. Patient reports being adherent to meds. Does not know what meds she takes and defers to daughter. Reports taking insulin, units and schedule unknown. Per pharm review, takes gabapentin 300 mg TID. A1c- 6.1 03/11/25 Creatinine- 5.4 on 03/11/25 from 3.8 on 03/10/25 Plan: - Hold antihypertensive meds - SSI step 2 - Hold gabapentin - Nephrology consulted, recs appreciated- continue dialysis schedule, strict I/O and daily weights. - Trend BMP, Mg, Phos daily. - Continue calcium acetate 667 mg x3 TID - Avoid nephrotoxic meds and renally dose #UTI Denies urinary symptoms, does produce a little urine per patient. UA on admission 2+ protein, 2+ blood, +LE, nitrites neg, RBC 22, WBC 287. Plan: - Ceftriaxone as above - Urine culture taken- follow up #GERD Plan: - IV pantoprazole 40 mg BID as above #Depression #Asthma Per history. Reports does not use inhaler Plan: - Duoneb q2h prn - Continue home sertraline 150 mg QD Disposition: Telemetry DVT prophylaxis: SCD GI prophylaxis: pantoprazole IV 40 BID Diet: NPO Lines: PIV CODE STATUS: DNR This case was discussed with my attending physician, Dr. Marin, and senior resident, Dr. Carson. John Valadez MD-PhD, PGY1 Attending Provider Attestation/Addendum I reviewed labs, imaging, EKG, home medications and prior available records. Face to face evaluation was performed by me. I have personally examined the patient and discussed assessment and plan with the IM team. I reviewed the resident note and agree with the plan with exceptions as below. GI bleed Liver cirrhosis ESRD on hemodialysis Continue PPI twice daily Continue octreotide drip Consulted GI: Plan for EGD today Continue IV ceftriaxone Consulted nephrology for hemodialysis Dose medications based on GFR
--- NOTE | 2025-03-11 20:21 | PC.NURSE ---
spoke to dr davies regarding sandostatin drip. states to stop sandostatin, start clear liquid diet, and start golytely for coloscopy tomorrow.
[2025-03-11] MEDS: NA SU/NAHCO3/KC/PEG (Golytely) 4,000 ML BTL 4000 ML PO (20:36)
[2025-03-11] MEDS: SERTRALINE HCL 25 MG TABLET 50 MG PO (20:37)
[2025-03-11] MEDS: INSULIN LISPRO (AdmeLOG) 1 UNIT/0.01 ML UNIT SC (21:13)
[2025-03-12] VITALS (26 sets, daily range): BP systolic 118–223; BP diastolic 55–107; PULSE 55–88; RESP 15–18; TEMP 36–37.2; O2SAT 95–100; BMI 27.9
[2025-03-12] MEDS: NA SU/NAHCO3/KC/PEG (Golytely) 4,000 ML BTL 4000 ML PO (05:20)
[2025-03-12 06:17] LABS: Basophils # (Auto) 0.0 Thou/mm3 (0.0-0.2); Basophils % (Auto) 0 % (0-2.5); Eosinophils # (Auto) 0.1 Thou/mm3 (0.0-0.5); Eosinophils % (Auto) 1 % (0-10); Hematocrit 23.4 % (36.0-46.0); Immature Granulocytes Auto 0.03 Thou/mm3 (0.00-0.00); Lymphocytes # (Auto) 0.8 Thou/mm3 (1.0-4.8); Lymphocytes % (Auto) 8 % (10-50); Mean Corpuscular HGB Conc 33.3 g/dl (31.0-37.0); Mean Corpuscular Hemoglobin 33.3 pg (25.0-35.0); Mean Corpuscular Volume 100 fL (80-100); Monocytes # (Auto) 0.5 Thou/mm3 (0.0-0.8); Monocytes % (Auto) 6 % (0-12); Neutrophils # (Auto) 8.1 Thou/mm3 (1.8-7.7); Neutrophils % (Auto) 85 % (37-80); Nucleated Red Blood Cell # 0.00 Thou/mm3 (0.00-0.00); Nucleated Red Blood Cell % 0 /100 WBC (0); Platelet Count 150 Thou/mm3 (140-440); RDW Standard Deviation 60.1 fL (36.4-46.3); Red Blood Count 2.34 Miln/mm3 (4.00-5.20); White Blood Count 9.5 Thou/mm3 (3.6-11.0)
[2025-03-12 06:28] LABS: Hemoglobin 7.8 g/dL (12.0-16.0)
[2025-03-12 06:41] LABS: Alanine Aminotransferase 16 U/L (10-49); Albumin, Serum 4.5 gm/dL (3.4-4.8); Albumin/Globulin Ratio 1.5 (1.2-2.2); Alkaline Phosphatase 172 U/L (46-116); Anion Gap 18 (7-16); Aspartate Amino Transferase 20 U/L (0-34); BUN/Creatinine Ratio 7 Ratio (12-20); Bilirubin,Total 0.2 mg/dL (0.3-1.2); Blood Urea Nitrogen 44 mg/dL (9-23); Calcium 8.5 mg/dL (8.3-10.6); Calcium (Corrected) 8.5 mg/dL (8.5-10.1); Carbon Dioxide 27.4 mMol/L (20.0-31.0); Chloride 92 mMol/L (98-107); Creatinine (Component) 6.6 mg/dL (0.6-1.3); Estimated Creatinine Clearance 7.0 mL/min (>60); Globulin 3.0 gm/dL (2.3-3.5); Glucose 186 mg/dL (74-106); Magnesium 2.5 mg/dL (1.6-2.6); Osmolality,Calculated 290 (275-295); Phosphorous 7.0 mg/dL (2.4-5.1); Potassium 5.1 mMol/L (3.4-5.1); Sodium 137 mMol/L (136-145); Total Protein 7.5 gm/dL (5.7-8.2); eGFR 7 See Note
--- NOTE | 2025-03-12 06:47 | PC.NURSE ---
DR LOBATO NOTIFIED OF PATIENT HAVING VISUAL HALLUCINATIONS STATING SHE SEES HER SON AND DAUGHTER OUTSIDE THE ROOM. NO NEW ORDERS AT THIS TIME DR STATES SHE WILL RELAY THE INFORMATION TO THE DAY TEAM.
[2025-03-12] MEDS: INSULIN LISPRO (AdmeLOG) 1 UNIT/0.01 ML UNIT SC ×2 (07:59→12:10)
[2025-03-12] MEDS: CALCIUM ACETATE 667 MG TABLET 1334 MG PO ×3 (07:59→16:49)
--- NOTE | 2025-03-12 09:28 | ESPR_ITS ---
<Statement entered by Jermaine Bravo MD - 03/12/25 13:12> I have reviewed the note and agree with the resident's assessment & plan with exceptions as below. I have personally reviewed labs, imaging, home meds/prior records, examined the patient, formulated and discussed management plan with my attending Patient was seen and evaluated bedside this morning. No acute overnight events. Patient underwent EGD yesterday which showed some erythematous gastric mucosa, otherwise no bleeding. Patient will undergo colonoscopy today. She does look a lot better today and was not in so much pain today. Hemoglobin has been stable at 7.8 after transfusion. Expect possible discharge in the next 24 to 48 hours. Jermaine Bravo PGY2 Disclaimer: Even though this this note was dictated by speech recognition and even though it was carefully revised there may still be minor errors in client relationship executive due to voice recognition software. Documentation for date of: 03/12/25 Subjective Subjective Interval history: Overnight events: No acute events overnight. Patient was seen and examined at bedside. AM vitals and labs reviewed. Patient seems much more interactive and appears to be much improved compared to yesterday. Patient saturating 99% on 2 L O2 via nasal cannula, which decreased to 90% on room air. No increased work of breathing noted on room air. GoLytely was present in the room to which the patient consumed about one third. Stools noted to be still brown appearing, but is more liquid. Patient did note concerns with feeling weak with dialysis and GoLytely together, but did become agreeable to finishing GoLytely after it was explained to the patient the risks and benefits of obtaining the colonoscopy. Hemoglobin 7.8, WBC 5.5, creatinine 6.6, and phosphorus 7.0 Urine culture negative for growth. EGD performed yesterday showed erythematous duodenopathy without overt signs of bleeding. Negative for esophageal varices. Pending colonoscopy. Octreotide drip discontinued yesterday. Dialysis planned for today. Encourage patient to continue GoLytely. Patient is on clear liquid diet. Discontinued ceftriaxone given negative urine culture. Review of systems otherwise negative except for what is mentioned above. Exam Vital Signs Temp Pulse Resp BP Pulse Ox O2 Del Method O2 Flow Rate 96.8 F 72 18 200/73 H 96 Nasal Cannula 2 03/12/25 08:24 03/12/25 08:30 03/12/25 08:24 03/12/25 08:30 03/12/25 08:24 03/12/25 08:00 03/12/25 08:00 Narrative Exam Physical Exam: General: Alert, no acute distress. Skin: Warm, dry, intact. Head: Normocephalic, atraumatic. Eye: Normal conjunctiva, PERRL. Cardiovascular: Regular rate and rhythm, systolic murmur noted in aortic/pulmonic and tricuspid regions, +S1/S2. Respiratory: Lungs are clear to auscultation, respirations unlabored, no crackles, no wheezing. Gastrointestinal: Soft, tender to light palpation in epigastric and suprapubic regions, non-distended. No guarding or rebound tenderness. Extremities: No edema, no cyanosis, no clubbing. AV fistula noted on both left and right, left AV fistula closed. Neuro: No focal deficits observed. Conversant, moving all extremities. No overt cerebellar signs/incoordination. Psychiatric: Cooperative, appropriate affect. Objective Labs 03/13/25 04:25 03/13/25 04:25 Labs: Laboratory Results - last 24 hr 03/12/25 05:47 WBC 9.5 RBC 2.34 L Hgb 7.8 L Hct 23.4 L MCV 100 MCH 33.3 MCHC 33.3 RDW Std Deviation 60.1 H Plt Count 150 D Neut % (Auto) 85 H Lymph % (Auto) 8 L [place] % (Auto) 6 Eos % (Auto) 1 Baso % (Auto) 0 Neut # (Auto) 8.1 H Lymph # (Auto) 0.8 L [place] # (Auto) 0.5 Eos # (Auto) 0.1 Baso # (Auto) 0.0 Immature Gran # (Auto) 0.03 H Absolute Nucleated RBC 0.00 Immature Gran % 0 Nucleated RBC % 0 Sodium 137 Potassium 5.1 Chloride 92 L Carbon Dioxide 27.4 Anion Gap 18 H BUN 44 H Creatinine 6.6 H* D Estim Creat Clear Calc 7.0 L eGFR 7 L* BUN/Creatinine Ratio 7 L Glucose 186 H Calculated Osmolality 290 Calcium 8.5 Corrected Calcium 8.5 Phosphorus 7.0 H Magnesium 2.5 Total Bilirubin 0.2 L AST 20 ALT 16 Alkaline Phosphatase 172 H Total Protein 7.5 Albumin 4.5 Globulin 3.0 Albumin/Globulin Ratio 1.5 Quality Measures Quality Measures VTE prophylaxis Assessment & Plan Assessment Current Active Medications: Generic Name Dose Route Start Last Admin Trade Name Freq PRN Reason Stop Dose Admin Acetaminophen 650 mg 03/10/25 16:12 Acetaminophen 325 Mg Tablet PO 04/09/25 16:11 Q6H PRN Fever >100.4 or pain Protocol Albuterol/Ipratropium 3 ml 03/10/25 16:59 Albuterol/Ipratropium (Duoneb) Rt Niurka 3 Ml Nebu INH 04/09/25 16:58 Q2HR PRN SHORTNESS OF BREATH OR WHEEZE Atorvastatin Calcium 40 mg 03/12/25 21:00 Atorvastatin Calcium 20 Mg Tablet PO 04/11/25 20:59 HS WALE Calcium Acetate 1,334 mg 03/10/25 17:30 03/12/25 07:59 Calcium Acetate 667 Mg Tablet PO 04/09/25 17:29 1,334 mg TIDWM WALE Administration Carvedilol 6.25 mg 03/12/25 09:00 Carvedilol 3.125 Mg Tablet PO 04/11/25 08:59 BIDWM WALE Dextrose 25 ml 03/10/25 16:23 Dextrose 50%-Water Inj 50 Ml Syringe IV 04/09/25 16:22 Q15MIN PRN BG 50-70 responsive npo pt Dextrose 50 ml 03/10/25 16:23 Dextrose 50%-Water Inj 50 Ml Syringe IV 04/09/25 16:22 Q15MIN PRN BG <50 OR BG <70 & pt unresponsive Glucagon 1 mg 03/10/25 16:23 Glucagon Inj 1 Mg Vial IM Q15MIN PRN BG <70, and no IV access Hydromorphone HCl 0.5 mg 03/10/25 16:37 03/11/25 17:01 Hydromorphone Inj 2 Mg/Ml Vial IVP 03/15/25 16:36 0.5 mg Q4HR PRN Administration Pain 4-10 Ceftriaxone Sodium/Dextrose 1 gm in 50 mls @ 100 mls/hr 03/10/25 16:24 03/11/25 08:53 Rocephin/D5w 1gm Iv Premix IV 03/17/25 16:23 100 mls/hr QDAY WALE Administration Insulin Human Lispro 0 unit 03/11/25 21:00 03/12/25 07:59 Insulin Lispro (Admelog) 1 Unit/0.01 Ml Unit SC 04/10/25 20:59 3 unit ACHS WALE Administration Protocol Ondansetron HCl 4 mg 03/10/25 16:18 Ondansetron Inj 2 Mg/Ml Inj 2 Ml IVP 04/09/25 16:17 Q6H PRN NAUSEA OR VOMITING Protocol Pantoprazole Sodium 40 mg 03/10/25 21:00 03/11/25 20:37 Pantoprazole Inj 40 Mg Vial IVP 04/09/25 20:59 40 mg Q12HR WALE Administration Sertraline HCl 50 mg 03/11/25 21:00 03/11/25 20:37 Sertraline Hcl 25 Mg Tablet PO 04/10/25 20:59 50 mg HS WALE Administration Plan This patient is a 59-year-old female with past medical history of ESRD on HD (MWF) secondary to diabetic nephropathy, s/p right AV fistula and closed left AV fistula, insulin-dependent type 2 diabetes mellitus, hypertension, GERD, and depression who presented to [facility] ED on 03/12 due to weakness, shortness of breath, and melena. Patient was admitted for management of GI bleed. #GI bleed, upper versus lower #Melena The patient was noted to have black watery tarry stools in addition to generalized weakness, which was what brought her to the hospital. It was also noted that there may have been some bright red blood in the stool as well. Patient does endorse history of GERD and takes famotidine at home. Given the nature of her presentation, GI bleed was suspected, however it was not entirely clear if it is upper versus lower. On presentation, the patient had a hemoglobin of 7.1, but given her history, patient was transfused with 1 unit of PRBC on 03/10. Diagnostics: EGD performed 03/11 showed erythematous mucosa in stomach, erythematous duodenopathy, stigmata of recent bleeding found in stomach without active bleeding and no stigmata of bleeding was found in the duodenal bulb Plan: GI consulted, appreciate recommendations Continue GoLytely and clear liquid diet to prep for colonoscopy planned for 03/12 Protonix 40 mg twice daily Octreotide drip was started on 03/10, discontinued on 03/11 given negative bleeding on EGD #ESRD on HD (MWF) #Hyperphosphatemia Patient has a history of ESRD on hemodialysis and is well-established with her brick paver Dr. Cortes. The patient does have a history of hyperphosphatemia in addition to her ESRD, and so she takes calcium acetate at home. Plan: Nephrology consulted, appreciate recommendations Resumed home calcium acetate 1334 mg 3 times daily #Hypertension, primary Patient does have a history of hypertension and takes multiple medications for management including carvedilol, nifedipine, and hydralazine at home for management. Hypertension is likely primary with contribution from patient's ESRD. Plan: Resumed carvedilol 6.25 mg twice daily Will continue to monitor, will consider resuming additional antihypertensives as necessary #Insulin-dependent type 2 diabetes mellitus Patient does have a history of insulin-dependent type 2 diabetes mellitus that has resulted in diabetic nephropathy. The patient does take 20 units of insulin glargine at home daily. Plan: Continue sliding scale insulin Will hold off on resuming home basal insulin until advancement in diet Will start carb consistent diet upon diet advancement #UTI ruled out Patient initially came in with urinalysis that had 2+ protein, 2+ blood, positive leukocyte esterase, 22 RBC, and 287 WBC. Patient did not have any elevations in temperature or WBC on presentation. Antibiotics were started empirically for management of suspected UTI. Diagnostics: Urine culture collected 03/10 negative for growth Plan: Discontinued ceftriaxone that was started on 03/10 given negative urine culture #GERD Patient does have a history of GERD and takes famotidine 20 mg daily at home. Patient does endorse epigastric pain. Plan: Protonix 40 mg twice daily Will transition patient to p.o. diet once diet can be advanced #Dyslipidemia Patient does not have a noted history of hyperlipidemia however the patient does take atorvastatin nightly at home. Lipid panel obtained 03/11 does note that the patient has elevated triglycerides and decreased HDL cholesterol. Plan: Resumed atorvastatin 40 mg nightly #Depression Patient does have a history of depression and takes sertraline 50 mg daily at home. Plan: Resumed home sertraline 50 mg daily DVT Prophylaxis: SCDs GI Prophylaxis: Protonix Bowel: GoLytely Diet: Clear liquid Farr: N/A Lines: Peripheral IV Antibiotics: N/A Code Status: DNR Reason for Hospitalization: GI bleed Other Barriers to Discharge: Colonoscopy Patient plan of care was discussed with the senior resident Dr. Bravo (PGY-2) and attending physician Dr. Deborah Cardoso, PGY1 Attending Provider Attestation/Addendum I have discussed and was present for the essential components of the history, physical examination, diagnosis, and treatment plan with the resident. I agree with the patient's care as documented by the resident and amended herein by me. Juancarlos Cabrera, DO. Although this document has been carefully reviewed, there may still be some phonetic and other typographical errors. These errors are purely grammatical due to imperfections in the software program and should not be construed in any way to compromise the substance of the patient's medical care during this visit.
--- NOTE | 2025-03-12 09:30 | PC.NURSE ---
Held Blood pressure meds until after dialysis per Dr. Carson
--- NOTE | 2025-03-12 09:39 | ESPR_ITS ---
Documentation for date of: 03/12/25 Subjective Subjective Interval history: Reason for consult: ESRD on HD - dialysis management History of present illness: 59-year-old female with a past medical history significant for ESRD on hemodialysis (MWF) secondary to diabetic nephropathy, insulin-dependent diabetes mellitus type 2, hypertension, asthma, GERD, and depression, who presented to the ED on 03/10/2025 with progressive weakness, shortness of breath, and melena for the past several days. She reports black watery stools since 03/05 associated with abdominal discomfort, worse in the right upper quadrant. At her dialysis session yesterday, she was noted to be weak and was advised to come to the hospital. Initial labs revealed a hemoglobin of 7.1 (down from 12 g/dL three months prior). CT imaging showed cirrhotic liver morphology with mild ascites and suspected esophageal varices. She received 1 unit PRBC, IV pantoprazole, ceftriaxone, and octreotide infusion. GI was consulted and planned for endoscopic evaluation. Nephrology was consulted for continuation of dialysis management during hospitalization. The patient is well known to Dr. Cortes?s dialysis service and receives maintenance HD on MWF schedule. She completed her last HD session on 03/10 prior to admission and is tolerating dialysis today without complications. She denies chest pain, shortness of breath, nausea, vomiting, or leg swelling at this time. 03/11/25: Patient seen and examined at bedside during dialysis. Awake, alert, and cooperative. Reports feeling weak but otherwise stable. Denies chest pain, dyspnea, abdominal pain, nausea, vomiting, or fever. Appetite fair. No leg swelling. BP: 136/61, HR: 69. Labs: WBC 7.0, Hgb 7.8, Hct 22, Plt 114, Na 135, K 4.8, Cl 91, CO2 26, BUN 39, Cr 5.4, Glu 161, Ca 8.5, Mg 2.1, Phos 6.1, A1c 6.1. Patient remains hemodynamically stable. Here for routine dialysis per MWF schedule. 03/12/2025: Patient seen and examined today. More alert and talkative compared to yesterday. Reports mild mid-epigastric abdominal pain but no nausea, vomiting, chest pain, or shortness of breath. She was observed drinking GoLytely in preparation for colonoscopy today since EGD was unremarkable. Will proceed with hemodialysis today as scheduled. BP: 145/77, HR: 83. Labs: WBC 9.5, Hgb 7.8, Hct 23, Plt 150, Na 137, K 5.1, Cl 92, CO2 27, BUN 44, Cr 6.6, Glu 186, Ca 8.5, Mg 2.5, Phos 7.0. Exam Vital Signs Temp Pulse Resp BP Pulse Ox O2 Del Method O2 Flow Rate 96.8 F 72 18 200/73 H 96 Nasal Cannula 2 03/12/25 08:24 03/12/25 08:30 03/12/25 08:24 03/12/25 08:30 03/12/25 08:24 03/12/25 08:00 03/12/25 08:00 Narrative Exam General: Awake, oriented ?3, mild fatigue noted. HEENT: Moist mucous membranes, anicteric sclerae. CVS: Regular rate and rhythm, no rubs, S1/S2 present. Resp: Lungs clear bilaterally, no wheezes/rales. Abdomen: Soft, non-distended, mild epigastric tenderness improving. Extremities: No edema. Skin: Warm, intact. Access: L AVF with palpable thrill and audible bruit. Objective Labs 03/13/25 04:25 03/13/25 04:25 Labs: Laboratory Results - last 24 hr 03/12/25 05:47 WBC 9.5 RBC 2.34 L Hgb 7.8 L Hct 23.4 L MCV 100 MCH 33.3 MCHC 33.3 RDW Std Deviation 60.1 H Plt Count 150 D Neut % (Auto) 85 H Lymph % (Auto) 8 L [place] % (Auto) 6 Eos % (Auto) 1 Baso % (Auto) 0 Neut # (Auto) 8.1 H Lymph # (Auto) 0.8 L [place] # (Auto) 0.5 Eos # (Auto) 0.1 Baso # (Auto) 0.0 Immature Gran # (Auto) 0.03 H Absolute Nucleated RBC 0.00 Immature Gran % 0 Nucleated RBC % 0 Sodium 137 Potassium 5.1 Chloride 92 L Carbon Dioxide 27.4 Anion Gap 18 H BUN 44 H Creatinine 6.6 H* D Estim Creat Clear Calc 7.0 L eGFR 7 L* BUN/Creatinine Ratio 7 L Glucose 186 H Calculated Osmolality 290 Calcium 8.5 Corrected Calcium 8.5 Phosphorus 7.0 H Magnesium 2.5 Total Bilirubin 0.2 L AST 20 ALT 16 Alkaline Phosphatase 172 H Total Protein 7.5 Albumin 4.5 Globulin 3.0 Albumin/Globulin Ratio 1.5 Quality Measures Quality Measures VTE prophylaxis Assessment & Plan Assessment Current Active Medications: Generic Name Dose Route Start Last Admin Trade Name Freq PRN Reason Stop Dose Admin Acetaminophen 650 mg 03/10/25 16:12 Acetaminophen 325 Mg Tablet PO 04/09/25 16:11 Q6H PRN Fever >100.4 or pain Protocol Albuterol/Ipratropium 3 ml 03/10/25 16:59 Albuterol/Ipratropium (Duoneb) Rt Niurka 3 Ml Nebu INH 04/09/25 16:58 Q2HR PRN SHORTNESS OF BREATH OR WHEEZE Atorvastatin Calcium 40 mg 03/12/25 21:00 Atorvastatin Calcium 20 Mg Tablet PO 04/11/25 20:59 HS WALE Calcium Acetate 1,334 mg 03/10/25 17:30 03/12/25 07:59 Calcium Acetate 667 Mg Tablet PO 04/09/25 17:29 1,334 mg TIDWM WALE Administration Carvedilol 6.25 mg 03/12/25 09:00 Carvedilol 3.125 Mg Tablet PO 04/11/25 08:59 BIDWM WALE Dextrose 25 ml 03/10/25 16:23 Dextrose 50%-Water Inj 50 Ml Syringe IV 04/09/25 16:22 Q15MIN PRN BG 50-70 responsive npo pt Dextrose 50 ml 03/10/25 16:23 Dextrose 50%-Water Inj 50 Ml Syringe IV 04/09/25 16:22 Q15MIN PRN BG <50 OR BG <70 & pt unresponsive Glucagon 1 mg 03/10/25 16:23 Glucagon Inj 1 Mg Vial IM Q15MIN PRN BG <70, and no IV access Hydromorphone HCl 0.5 mg 03/10/25 16:37 03/11/25 17:01 Hydromorphone Inj 2 Mg/Ml Vial IVP 03/15/25 16:36 0.5 mg Q4HR PRN Administration Pain 4-10 Ceftriaxone Sodium/Dextrose 1 gm in 50 mls @ 100 mls/hr 03/10/25 16:24 03/11/25 08:53 Rocephin/D5w 1gm Iv Premix IV 03/17/25 16:23 100 mls/hr QDAY WALE Administration Insulin Human Lispro 0 unit 03/11/25 21:00 03/12/25 07:59 Insulin Lispro (Admelog) 1 Unit/0.01 Ml Unit SC 04/10/25 20:59 3 unit ACHS WALE Administration Protocol Ondansetron HCl 4 mg 03/10/25 16:18 Ondansetron Inj 2 Mg/Ml Inj 2 Ml IVP 04/09/25 16:17 Q6H PRN NAUSEA OR VOMITING Protocol Pantoprazole Sodium 40 mg 03/10/25 21:00 03/11/25 20:37 Pantoprazole Inj 40 Mg Vial IVP 04/09/25 20:59 40 mg Q12HR WALE Administration Sertraline HCl 50 mg 03/11/25 21:00 03/11/25 20:37 Sertraline Hcl 25 Mg Tablet PO 04/10/25 20:59 50 mg HS WALE Administration Plan 59-year-old female with ESRD on HD (MWF) secondary to diabetic nephropathy, admitted for GI bleed with acute anemia, now preparing for colonoscopy. Seen on dialysis today and clinically stable. # ESRD on HD Routine MWF dialysis patient of Dr. Cortes, scheduled for HD today. Plan: * Continue MWF dialysis schedule. * Proceed with HD today as scheduled. * Strict I/O and daily weights. * Avoid nephrotoxic agents. * Monitor BMP, Mg, Phos daily. * Continue calcium acetate TID with meals. * Transfuse PRBCs as needed per primary team, target Hgb >8. # Hyperkalemia, mild K 5.1, expected to improve with dialysis. Plan: * Correct with today?s HD session. * Continue low-K diet. # Hyperphosphatemia Phos 7.0. Plan: * Continue calcium acetate * Monitor phosphorus levels daily # Hyponatremia, mild Stable, likely dilutional. Plan: * Address with dialysis fluid composition. # Acute blood loss anemia # Hypertension #HTN #IDDM2 #Diabetic neuropathy #GERD #Depression #Asthma #UTI Management per primary team ----- Plan discussed with attending physician Dr. Sophia Kendall MD PGY-1 Internal Medicine Attending Provider Attestation/Addendum Patient seen and examined with resident physician Dr. Kendall. Note reviewed, agree with findings and recommendations. Patient currently seen on dialysis. Tolerating dialysis without any problems. Hemodialysis for 3 hours, 2K, ultrafiltration 2-3 L, Epogen 6000, no heparin ordered. Plan of care discussed with the dialysis nurse. Please see dialysis flowsheet for further details.
[2025-03-12] MEDS: cefTRIAXone/D5w 1gm IV premix 1 GM/50 ML BAG IV (09:49)
--- NOTE | 2025-03-12 15:12 | PC.SS ---
rounding note: Patient having dialysis today. Pending colonoscopy tonight. Tentative d/c plan is returning home within 24-48 hours
[2025-03-12] MEDS: EPOETIN ALFA-EPBX INJ 10,000 UNIT/ML VIAL (ESRD) 10000 UNIT SC (15:29)
--- NOTE | 2025-03-12 16:19 | PC.NURSE ---
pt came back from dialysis
[2025-03-12] MEDS: ATORVASTATIN CALCIUM 20 MG TABLET 40 MG PO (20:02)
[2025-03-12] MEDS: SERTRALINE HCL 25 MG TABLET 50 MG PO (20:03)
--- NOTE | 2025-03-12 20:30 | PD.IMPROG ---
Documentation for date of: 03/12/25 Subjective Subjective Interval history: Patient evaluated Not clear for colonoscopy today Hemoglobin hematocrit 7.8 and 23.7 Continue GoLytely prep Exam Vital Signs Temp Pulse Resp BP Pulse Ox O2 Del Method O2 Flow Rate 98.4 F 86 17 162/75 H 100 Nasal Cannula 2 03/12/25 16:00 03/12/25 16:49 03/12/25 16:00 03/12/25 16:49 03/12/25 16:00 03/12/25 16:00 03/12/25 16:00 Objective Labs 03/12/25 05:47 03/12/25 05:47 Labs: Laboratory Results - last 24 hr 03/12/25 05:47 WBC 9.5 RBC 2.34 L Hgb 7.8 L Hct 23.4 L MCV 100 MCH 33.3 MCHC 33.3 RDW Std Deviation 60.1 H Plt Count 150 D Neut % (Auto) 85 H Lymph % (Auto) 8 L [place] % (Auto) 6 Eos % (Auto) 1 Baso % (Auto) 0 Neut # (Auto) 8.1 H Lymph # (Auto) 0.8 L [place] # (Auto) 0.5 Eos # (Auto) 0.1 Baso # (Auto) 0.0 Immature Gran # (Auto) 0.03 H Absolute Nucleated RBC 0.00 Immature Gran % 0 Nucleated RBC % 0 Sodium 137 Potassium 5.1 Chloride 92 L Carbon Dioxide 27.4 Anion Gap 18 H BUN 44 H Creatinine 6.6 H* D Estim Creat Clear Calc 7.0 L eGFR 7 L* BUN/Creatinine Ratio 7 L Glucose 186 H Calculated Osmolality 290 Calcium 8.5 Corrected Calcium 8.5 Phosphorus 7.0 H Magnesium 2.5 Total Bilirubin 0.2 L AST 20 ALT 16 Alkaline Phosphatase 172 H Total Protein 7.5 Albumin 4.5 Globulin 3.0 Albumin/Globulin Ratio 1.5 Impressions Impression: Anemia posthemorrhagic Colonoscopy prep in progress Colonoscopy rescheduled for tomorrow # Gastritis # Esophagitis Assessment & Plan Time Spent With Patient Time: Total time spent is greater than 50% in coordination of care (as documented) at patient's floor/unit and/or counseling patient:
[2025-03-13] VITALS (21 sets, daily range): BP systolic 119–176; BP diastolic 56–93; PULSE 67–81; RESP 15–30; TEMP 36.2–36.8; O2SAT 96–100; BMI 29.2
[2025-03-13 05:55] LABS: Basophils # (Auto) 0.0 Thou/mm3 (0.0-0.2); Basophils % (Auto) 0 % (0-2.5); Eosinophils # (Auto) 0.1 Thou/mm3 (0.0-0.5); Eosinophils % (Auto) 1 % (0-10); Hematocrit 22.3 % (36.0-46.0); Immature Granulocytes Auto 0.04 Thou/mm3 (0.00-0.00); Lymphocytes # (Auto) 0.8 Thou/mm3 (1.0-4.8); Lymphocytes % (Auto) 10 % (10-50); Mean Corpuscular HGB Conc 33.6 g/dl (31.0-37.0); Mean Corpuscular Hemoglobin 34.6 pg (25.0-35.0); Mean Corpuscular Volume 103 fL (80-100); Monocytes # (Auto) 0.4 Thou/mm3 (0.0-0.8); Monocytes % (Auto) 5 % (0-12); Neutrophils # (Auto) 6.7 Thou/mm3 (1.8-7.7); Neutrophils % (Auto) 83 % (37-80); Nucleated Red Blood Cell # 0.02 Thou/mm3 (0.00-0.00); Nucleated Red Blood Cell % 0 /100 WBC (0); Platelet Count 152 Thou/mm3 (140-440); RDW Standard Deviation 60.7 fL (36.4-46.3); Red Blood Count 2.17 Miln/mm3 (4.00-5.20); White Blood Count 8.0 Thou/mm3 (3.6-11.0)
[2025-03-13 05:56] LABS: Hemoglobin 7.5 g/dL (12.0-16.0)
[2025-03-13 06:32] LABS: Alanine Aminotransferase 14 U/L (10-49); Albumin, Serum 4.2 gm/dL (3.4-4.8); Albumin/Globulin Ratio 1.5 (1.2-2.2); Alkaline Phosphatase 155 U/L (46-116); Anion Gap 19 (7-16); Aspartate Amino Transferase 23 U/L (0-34); BUN/Creatinine Ratio 4 Ratio (12-20); Bilirubin,Total 0.3 mg/dL (0.3-1.2); Blood Urea Nitrogen 19 mg/dL (9-23); Calcium 8.9 mg/dL (8.3-10.6); Calcium (Corrected) 8.9 mg/dL (8.5-10.1); Carbon Dioxide 28.5 mMol/L (20.0-31.0); Chloride 96 mMol/L (98-107); Creatinine (Component) 4.4 mg/dL (0.6-1.3); Estimated Creatinine Clearance 10.7 mL/min (>60); Globulin 2.8 gm/dL (2.3-3.5); Glucose 153 mg/dL (74-106); Magnesium 2.2 mg/dL (1.6-2.6); Osmolality,Calculated 290 (275-295); Phosphorous 4.9 mg/dL (2.4-5.1); Potassium 4.3 mMol/L (3.4-5.1); Sodium 143 mMol/L (136-145); Total Protein 7.0 gm/dL (5.7-8.2); eGFR 11 See Note
[2025-03-13] MEDS: INSULIN LISPRO (AdmeLOG) 1 UNIT/0.01 ML UNIT SC ×3 (08:10→17:45)
[2025-03-13] MEDS: CALCIUM ACETATE 667 MG TABLET 1334 MG PO ×2 (08:12→11:50)
--- NOTE | 2025-03-13 08:58 | ESPR_ITS ---
Documentation for date of: 03/13/25 Subjective Subjective Interval history: Reason for consult: ESRD on HD - dialysis management History of present illness: 59-year-old female with a past medical history significant for ESRD on hemodialysis (MWF) secondary to diabetic nephropathy, insulin-dependent diabetes mellitus type 2, hypertension, asthma, GERD, and depression, who presented to the ED on 03/10/2025 with progressive weakness, shortness of breath, and melena for the past several days. She reports black watery stools since 03/05 associated with abdominal discomfort, worse in the right upper quadrant. At her dialysis session yesterday, she was noted to be weak and was advised to come to the hospital. Initial labs revealed a hemoglobin of 7.1 (down from 12 g/dL three months prior). CT imaging showed cirrhotic liver morphology with mild ascites and suspected esophageal varices. She received 1 unit PRBC, IV pantoprazole, ceftriaxone, and octreotide infusion. GI was consulted and planned for endoscopic evaluation. Nephrology was consulted for continuation of dialysis management during hospitalization. The patient is well known to Dr. Cortes?s dialysis service and receives maintenance HD on MWF schedule. She completed her last HD session on 03/10 prior to admission and is tolerating dialysis today without complications. She denies chest pain, shortness of breath, nausea, vomiting, or leg swelling at this time. 03/11/25: Patient seen and examined at bedside during dialysis. Awake, alert, and cooperative. Reports feeling weak but otherwise stable. Denies chest pain, dyspnea, abdominal pain, nausea, vomiting, or fever. Appetite fair. No leg swelling. BP: 136/61, HR: 69. Labs: WBC 7.0, Hgb 7.8, Hct 22, Plt 114, Na 135, K 4.8, Cl 91, CO2 26, BUN 39, Cr 5.4, Glu 161, Ca 8.5, Mg 2.1, Phos 6.1, A1c 6.1. Patient remains hemodynamically stable. Here for routine dialysis per MWF schedule. 03/12/2025: Patient seen and examined today. More alert and talkative compared to yesterday. Reports mild mid-epigastric abdominal pain but no nausea, vomiting, chest pain, or shortness of breath. She was observed drinking GoLytely in preparation for colonoscopy today since EGD was unremarkable. Will proceed with hemodialysis today as scheduled. BP: 145/77, HR: 83. Labs: WBC 9.5, Hgb 7.8, Hct 23, Plt 150, Na 137, K 5.1, Cl 92, CO2 27, BUN 44, Cr 6.6, Glu 186, Ca 8.5, Mg 2.5, Phos 7.0. 03/13/2025: Patient seen and examined today. Tolerated hemodialysis well yesterday without any issues. This morning, she reports feeling well with no new complaints denies chest pain, shortness of breath, nausea, vomiting, or abdominal pain. Appetite improving. BP: 151/61, HR: 74. Labs: WBC 8.0, Hgb 7.5, Hct 22.3, Plt 162, Na 143, K 4.3, Cl 96, CO2 28, BUN 19, Cr 4.4, Glu 153, Ca 8.9, Mg 2.2, Phos 4.9. Exam Vital Signs Temp Pulse Resp BP Pulse Ox O2 Del Method O2 Flow Rate 97.8 F 73 20 153/70 H 98 Nasal Cannula 2 03/13/25 08:00 03/13/25 08:12 03/13/25 08:00 03/13/25 08:12 03/13/25 08:00 03/13/25 08:00 03/13/25 08:00 Narrative Exam General: Awake, oriented ?3, mild fatigue noted. HEENT: Moist mucous membranes, anicteric sclerae. CVS: Regular rate and rhythm, no rubs, S1/S2 present. Resp: Lungs clear bilaterally, no wheezes/rales. Abdomen: Soft, non-distended, mild epigastric tenderness improving. Extremities: No edema. Skin: Warm, intact. Access: L AVF with palpable thrill and audible bruit. Objective Labs 03/13/25 04:25 03/13/25 04:25 Labs: Laboratory Results - last 24 hr 03/13/25 04:25 WBC 8.0 RBC 2.17 L Hgb 7.5 L Hct 22.3 L MCV 103 H MCH 34.6 MCHC 33.6 RDW Std Deviation 60.7 H Plt Count 152 Neut % (Auto) 83 H Lymph % (Auto) 10 Hand % (Auto) 5 Eos % (Auto) 1 Baso % (Auto) 0 Neut # (Auto) 6.7 Lymph # (Auto) 0.8 L Hand # (Auto) 0.4 Eos # (Auto) 0.1 Baso # (Auto) 0.0 Immature Gran # (Auto) 0.04 H Absolute Nucleated RBC 0.02 H Immature Gran % 1 H Nucleated RBC % 0 Sodium 143 Potassium 4.3 D Chloride 96 L Carbon Dioxide 28.5 Anion Gap 19 H BUN 19 Creatinine 4.4 H* D Estim Creat Clear Calc 10.7 L eGFR 11 L* BUN/Creatinine Ratio 4 L Glucose 153 H Calculated Osmolality 290 Calcium 8.9 Corrected Calcium 8.9 Phosphorus 4.9 Magnesium 2.2 Total Bilirubin 0.3 AST 23 ALT 14 Alkaline Phosphatase 155 H Total Protein 7.0 Albumin 4.2 Globulin 2.8 Albumin/Globulin Ratio 1.5 Quality Measures Quality Measures VTE prophylaxis Assessment & Plan Assessment Current Active Medications: Generic Name Dose Route Start Last Admin Trade Name Freq PRN Reason Stop Dose Admin Acetaminophen 650 mg 03/10/25 16:12 Acetaminophen 325 Mg Tablet PO 04/09/25 16:11 Q6H PRN Fever >100.4 or pain Protocol Albuterol/Ipratropium 3 ml 03/10/25 16:59 Albuterol/Ipratropium (Duoneb) Rt Niurka 3 Ml Nebu INH 04/09/25 16:58 Q2HR PRN SHORTNESS OF BREATH OR WHEEZE Atorvastatin Calcium 40 mg 03/12/25 21:00 03/12/25 20:02 Atorvastatin Calcium 20 Mg Tablet PO 04/11/25 20:59 40 mg HS WALE Administration Calcium Acetate 1,334 mg 03/10/25 17:30 03/13/25 08:12 Calcium Acetate 667 Mg Tablet PO 04/09/25 17:29 1,334 mg TIDWM WALE Administration Carvedilol 6.25 mg 03/12/25 09:00 03/13/25 08:12 Carvedilol 3.125 Mg Tablet PO 04/11/25 08:59 6.25 mg BIDWM WALE Administration Dextrose 25 ml 03/10/25 16:23 Dextrose 50%-Water Inj 50 Ml Syringe IV 04/09/25 16:22 Q15MIN PRN BG 50-70 responsive npo pt Dextrose 50 ml 03/10/25 16:23 Dextrose 50%-Water Inj 50 Ml Syringe IV 04/09/25 16:22 Q15MIN PRN BG <50 OR BG <70 & pt unresponsive Glucagon 1 mg 03/10/25 16:23 Glucagon Inj 1 Mg Vial IM Q15MIN PRN BG <70, and no IV access Hydromorphone HCl 0.5 mg 03/10/25 16:37 03/11/25 17:01 Hydromorphone Inj 2 Mg/Ml Vial IVP 03/15/25 16:36 0.5 mg On Hold: 03/12/25 22:35 Q4HR PRN Administration Pain 4-10 Insulin Human Lispro 0 unit 03/11/25 21:00 03/13/25 08:10 Insulin Lispro (Admelog) 1 Unit/0.01 Ml Unit SC 04/10/25 20:59 2 unit ACHS WALE Administration Protocol Ondansetron HCl 4 mg 03/10/25 16:18 Ondansetron Inj 2 Mg/Ml Inj 2 Ml IVP 04/09/25 16:17 Q6H PRN NAUSEA OR VOMITING Protocol Pantoprazole Sodium 40 mg 03/10/25 21:00 03/13/25 08:11 Pantoprazole Inj 40 Mg Vial IVP 04/09/25 20:59 40 mg Q12HR WALE Administration Sertraline HCl 50 mg 03/11/25 21:00 03/12/25 20:03 Sertraline Hcl 25 Mg Tablet PO 04/10/25 20:59 50 mg HS WALE Administration Plan 59-year-old female with ESRD on HD ([facility]) secondary to diabetic nephropathy, admitted for GI bleed with anemia, now stable and tolerating HD well. # ESRD on HD Routine F HD patient of Dr. Cortes, tolerated HD yesterday without complication. Plan: * Continue regular [facility] dialysis schedule. * Labs improved post-HD. * Continue calcium acetate TID with meals. * Monitor daily BMP, Mg, Phos. * Avoid nephrotoxins; renally dose meds. * Continue strict I&O and daily weights. # Anemia of CKD Hgb 7.5, stable post-transfusion and post-HD. Plan: * Monitor H&H daily. * Transfuse per primary if Hgb <7 or symptomatic. * Resume HEMA when appropriate. # Electrolyte imbalance K 4.3, Na 143, CO2 28; all stable and within goal post-HD. Plan: * Continue current dialysate composition. * Maintain low-K, low-Phos renal diet. # Hyperphosphatemia Phos improved from 7.0 -> 4.9. Plan: * Continue calcium acetate TID. * Reinforce low-phosphorus diet. # Acute blood loss anemia # Hypertension #HTN #IDDM2 #Diabetic neuropathy #GERD #Depression #Asthma #UTI Management per primary team ----- Plan discussed with attending physician Dr. Sophia Kendall MD PGY-1 Internal Medicine Attending Provider Attestation/Addendum Patient seen and examined with resident physician Dr. Kendall. Note reviewed, agree with findings and recommendations. Next dialysis scheduled for tomorrow
--- NOTE | 2025-03-13 10:58 | ESPR_ITS ---
<Statement entered by Jermaine Bravo MD - 03/13/25 17:16> I have reviewed the note and agree with the resident's assessment & plan with exceptions as below. I have personally reviewed labs, imaging, home meds/prior records, examined the patient, formulated and discussed management plan with my attending Patient was seen and examined at bedside this morning. No acute overnight events. Patient was still not cleared yesterday for colonoscopy therefore we will likely have colonoscopy done today. Ordered another GoLytely to ensure patient is in fact cleared for colonoscopy today. No other complaints at this time. Jermaine Bravo PGY2 Disclaimer: Even though this this note was dictated by speech recognition and even though it was carefully revised there may still be minor errors in cigarette making machine hopper feeder due to voice recognition software. Documentation for date of: 03/13/25 Subjective Subjective Interval history: Patient seen and examined at bedside today; no acute overnight events. Patient said she didn't sleep well last night; also unable to do colonoscopy due to not having clear bowel movements after 1 completed container of GoLytely. Patient was given 2nd container of GoLytely; expect to do colonscopy today. Urine cultures showed no growth. Exam Vital Signs Temp Pulse Resp BP Pulse Ox O2 Del Method O2 Flow Rate 97.8 F 73 20 153/70 H 98 Nasal Cannula 2 03/13/25 08:00 03/13/25 08:12 03/13/25 08:00 03/13/25 08:12 03/13/25 08:00 03/13/25 08:00 03/13/25 08:00 Narrative Exam General: A/O x3, no acute distress, well-nourished, well-developed Eyes: PERRL, EOMI. Anicteric, vision grossly intact. Ears: No ear pain, no ear discharge, Hearing grossly intact. Nose: No nasal discharge. Mouth/Throat: Moist mucous membranes, no redness, no lesions. Neck: Neck supple, non-tender, no cervical lymphadenopathy. Lungs: expriatory wheezing, No accessory muscle use. Cardio: Normal S1/S2, regular rhythm, no murmurs, no JVD or carotid bruits. Abdomen: Soft, mild abdominal tenderness, no palpable masses, peristalsis present, no guarding or rebound. Extremities: Symmetrical, no significant deformities, no peripheral edema , non-tender, peripheral pulses presents. Skin: No rashes, no lesions, warm to touch. Neuro: No focal neurological deficits. Psych: Cooperative, appropriate mood and effect. Objective Labs 03/13/25 04:25 03/13/25 04:25 Labs: Laboratory Results - last 24 hr 03/13/25 04:25 WBC 8.0 RBC 2.17 L Hgb 7.5 L Hct 22.3 L MCV 103 H MCH 34.6 MCHC 33.6 RDW Std Deviation 60.7 H Plt Count 152 Neut % (Auto) 83 H Lymph % (Auto) 10 [facility] % (Auto) 5 Eos % (Auto) 1 Baso % (Auto) 0 Neut # (Auto) 6.7 Lymph # (Auto) 0.[address] [facility] # (Auto) 0.4 Eos # (Auto) 0.1 Baso # (Auto) 0.0 Immature Gran # (Auto) 0.04 H Absolute Nucleated RBC 0.02 H Immature Gran % 1 H Nucleated RBC % 0 Sodium 143 Potassium 4.3 D Chloride 96 L Carbon Dioxide 28.5 Anion Gap 19 H BUN 19 Creatinine 4.4 H* D Estim Creat Clear Calc 10.7 L eGFR 11 L* BUN/Creatinine Ratio 4 L Glucose 153 H Calculated Osmolality 290 Calcium 8.9 Corrected Calcium 8.9 Phosphorus 4.9 Magnesium 2.2 Total Bilirubin 0.3 AST 23 ALT 14 Alkaline Phosphatase 155 H Total Protein 7.0 Albumin 4.2 Globulin 2.8 Albumin/Globulin Ratio 1.5 Quality Measures Quality Measures VTE prophylaxis Assessment & Plan Assessment Current Active Medications: Generic Name Dose Route Start Last Admin Trade Name Freq PRN Reason Stop Dose Admin Acetaminophen 650 mg 03/10/25 16:12 Acetaminophen 325 Mg Tablet PO 04/09/25 16:11 Q6H PRN Fever >100.4 or pain Protocol Albuterol/Ipratropium 3 ml 03/10/25 16:59 Albuterol/Ipratropium (Duoneb) Rt Niurka 3 Ml Nebu INH 04/09/25 16:58 Q2HR PRN SHORTNESS OF BREATH OR WHEEZE Atorvastatin Calcium 40 mg 03/12/25 21:00 03/12/25 20:02 Atorvastatin Calcium 20 Mg Tablet PO 04/11/25 20:59 40 mg HS WALE Administration Calcium Acetate 1,334 mg 03/10/25 17:30 03/13/25 08:12 Calcium Acetate 667 Mg Tablet PO 04/09/25 17:29 1,334 mg TIDWM WALE Administration Carvedilol 6.25 mg 03/12/25 09:00 03/13/25 08:12 Carvedilol 3.125 Mg Tablet PO 04/11/25 08:59 6.25 mg BIDWM AWLE Administration Dextrose 25 ml 03/10/25 16:23 Dextrose 50%-Water Inj 50 Ml Syringe IV 04/09/25 16:22 Q15MIN PRN BG 50-70 responsive npo pt Dextrose 50 ml 03/10/25 16:23 Dextrose 50%-Water Inj 50 Ml Syringe IV 04/09/25 16:22 Q15MIN PRN BG <50 OR BG <70 & pt unresponsive Glucagon 1 mg 03/10/25 16:23 Glucagon Inj 1 Mg Vial IM Q15MIN PRN BG <70, and no IV access Hydromorphone HCl 0.5 mg 03/10/25 16:37 03/11/25 17:01 Hydromorphone Inj 2 Mg/Ml Vial IVP 03/15/25 16:36 0.5 mg On Hold: 03/12/25 22:35 Q4HR PRN Administration Pain 4-10 Insulin Human Lispro 0 unit 03/11/25 21:00 03/13/25 08:10 Insulin Lispro (Admelog) 1 Unit/0.01 Ml Unit SC 04/10/25 20:59 2 unit ACHS WALE Administration Protocol Ondansetron HCl 4 mg 03/10/25 16:18 Ondansetron Inj 2 Mg/Ml Inj 2 Ml IVP 04/09/25 16:17 Q6H PRN NAUSEA OR VOMITING Protocol Pantoprazole Sodium 40 mg 03/13/25 21:00 Pantoprazole 40 Mg Tablet PO 04/12/25 20:59 BID WALE Protocol Sertraline HCl 50 mg 03/11/25 21:00 03/12/25 20:03 Sertraline Hcl 25 Mg Tablet PO 04/10/25 20:59 50 mg HS WALE Administration Plan Patient is a 59-year-old female with past medical history of ESRD on HD (MWF) secondary to diabetic nephropathy, s/p right AV fistula and closed left AV fistula, insulin-dependent type 2 diabetes mellitus, hypertension, GERD, and depression who presented to [facility] ED on 03/12 due to weakness, shortness of breath, and melena. Patient was admitted for management of GI bleed. #GI bleed, upper versus lower #Melena The patient was noted to have black watery tarry stools in addition to generalized weakness, which was what brought her to the hospital. It was also noted that there may have been some bright red blood in the stool as well. Patient does endorse history of GERD and takes famotidine at home. Given the nature of her presentation, GI bleed was suspected, however it was not entirely clear if it is upper versus lower. On presentation, the patient had a hemoglobin of 7.1, but given her history, patient was transfused with 1 unit of PRBC on 03/10. 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 Cortes. The patient does have a history of hyperphosphatemia in addition to her ESRD; she takes calcium acetate at home. Plan: Nephrology consulted, appreciate recommendations Resumed home calcium acetate 1334 mg 3 times daily #Hypertension, primary Patient has history of hypertension and takes multiple medications for management including carvedilol, nifedipine, and hydralazine at home for management. Hypertension is likely primary with contribution from patient's ESRD. Plan: Resumed carvedilol 6.25 mg twice daily Will continue to monitor, will consider resuming additional antihypertensives as necessary #Insulin-dependent type 2 diabetes mellitus Patient does have a history of insulin-dependent type 2 diabetes mellitus that has resulted in diabetic nephropathy. The patient does take 20 units of insulin glargine at home daily. Plan: insulin sliding scale step 2 Will hold off on resuming home basal insulin until advancement in diet Will start carb consistent diet upon diet advancement #UTI ruled out Patient initially came in with urinalysis that had 2+ protein, 2+ blood, positive leukocyte esterase, 22 RBC, and 287 WBC. Patient did not have any elevations in temperature or WBC on presentation. Antibiotics were started empirically for management of suspected UTI. Diagnostics: Urine culture collected 03/10 negative for growth Plan: Discontinued ceftriaxone that was started on 03/10 given negative urine culture #GERD Patient does have a history of GERD and takes famotidine 20 mg daily at home. Patient does endorse epigastric pain. Plan: Protonix 40 mg twice daily Will transition patient to p.o. diet once diet can be advanced #Dyslipidemia Patient does not have a noted history of hyperlipidemia however the patient does take atorvastatin nightly at home. Lipid panel obtained 03/11 does note that the patient has elevated triglycerides and decreased HDL cholesterol. Plan: Resumed atorvastatin 40 mg nightly #Depression Patient does have a history of depression and takes sertraline 50 mg daily at home. Plan: Resumed home sertraline 50 mg daily DVT Prophylaxis: SCDs GI Prophylaxis: Protonix Bowel: GoLytely Diet: Clear liquid Farr: N/A Lines: Peripheral IV Code Status: DNR This case was discussed with my attending physician, Dr. Cabrera, and senior resident, Dr. Carson. John Valadez MD-PhD, PGY1 Attending Provider Attestation/Addendum I have discussed and was present for the essential components of the history, physical examination, diagnosis, and treatment plan with the resident. I agree with the patient's care as documented by the resident and amended herein by me. Juancarlos Cabrera DO. Although this document has been carefully reviewed, there may still be some phonetic and other typographical errors. These errors are purely grammatical due to imperfections in the software program and should not be construed in any way to compromise the substance of the patient's medical care during this visit. Patient seen and evaluated this AM. No acute events overnight, vital signs stable, patient afebrile, patient here for GI bleed, pending colonoscopy at this time, patient stools were still not clear as of last night and she will continue GoLytely today, hopefully colonoscopy tonight. Patient is also ESRD on HD, next session should be tomorrow. Likely DC tomorrow pending GI recommendations.
[2025-03-13] MEDS: NA SU/NAHCO3/KC/PEG (Golytely) 4,000 ML BTL 4000 ML PO (10:59)
[2025-03-13] MEDS: MORPHINE SULF INJ 4 MG/ML VIAL 1 MG IVP (18:16)
--- NOTE | 2025-03-13 20:25 | SUR.PHASEI ---
pt received to [facility]. wakes with stimulation. denies pain and nausea. breathing even and unlabored. report from nurse cricket
[2025-03-13] MEDS: PANTOPRAZOLE 40 MG TABLET PO (21:15)
[2025-03-13] MEDS: SERTRALINE HCL 25 MG TABLET 50 MG PO (21:15)
[2025-03-13] MEDS: ATORVASTATIN CALCIUM 20 MG TABLET 40 MG PO (21:16)
[2025-03-14] VITALS (31 sets, daily range): BP systolic 124–188; BP diastolic 68–92; PULSE 54–90; RESP 16–25; TEMP 36–36.7; O2SAT 97–100; BMI 29.2
[2025-03-14 06:01] LABS: Basophils # (Auto) 0.0 Thou/mm3 (0.0-0.2); Basophils % (Auto) 1 % (0-2.5); Eosinophils # (Auto) 0.2 Thou/mm3 (0.0-0.5); Eosinophils % (Auto) 3 % (0-10); Hematocrit 21.9 % (36.0-46.0); Immature Granulocytes Auto 0.04 Thou/mm3 (0.00-0.00); Lymphocytes # (Auto) 0.9 Thou/mm3 (1.0-4.8); Lymphocytes % (Auto) 13 % (10-50); Mean Corpuscular HGB Conc 32.9 g/dl (31.0-37.0); Mean Corpuscular Hemoglobin 33.5 pg (25.0-35.0); Mean Corpuscular Volume 102 fL (80-100); Monocytes # (Auto) 0.4 Thou/mm3 (0.0-0.8); Monocytes % (Auto) 7 % (0-12); Neutrophils # (Auto) 5.0 Thou/mm3 (1.8-7.7); Neutrophils % (Auto) 76 % (37-80); Nucleated Red Blood Cell # 0.00 Thou/mm3 (0.00-0.00); Nucleated Red Blood Cell % 0 /100 WBC (0); Platelet Count 167 Thou/mm3 (140-440); RDW Standard Deviation 59.1 fL (36.4-46.3); Red Blood Count 2.15 Miln/mm3 (4.00-5.20); White Blood Count 6.6 Thou/mm3 (3.6-11.0)
[2025-03-14 06:23] LABS: Hemoglobin 7.2 g/dL (12.0-16.0)
[2025-03-14 06:43] LABS: Alanine Aminotransferase 9 U/L (10-49); Albumin, Serum 3.9 gm/dL (3.4-4.8); Albumin/Globulin Ratio 1.6 (1.2-2.2); Alkaline Phosphatase 135 U/L (46-116); Anion Gap 15 (7-16); Aspartate Amino Transferase 19 U/L (0-34); BUN/Creatinine Ratio 4 Ratio (12-20); Bilirubin,Total 0.3 mg/dL (0.3-1.2); Blood Urea Nitrogen 22 mg/dL (9-23); Calcium 8.9 mg/dL (8.3-10.6); Calcium (Corrected) 9.0 mg/dL (8.5-10.1); Carbon Dioxide 31.2 mMol/L (20.0-31.0); Chloride 95 mMol/L (98-107); Creatinine (Component) 6.1 mg/dL (0.6-1.3); Estimated Creatinine Clearance 7.5 mL/min (>60); Globulin 2.4 gm/dL (2.3-3.5); Glucose 227 mg/dL (74-106); Magnesium 2.1 mg/dL (1.6-2.6); Osmolality,Calculated 291 (275-295); Phosphorous 4.6 mg/dL (2.4-5.1); Potassium 4.3 mMol/L (3.4-5.1); Sodium 141 mMol/L (136-145); Total Protein 6.3 gm/dL (5.7-8.2); eGFR 7 See Note
[2025-03-14] MEDS: CALCIUM ACETATE 667 MG TABLET 1334 MG PO ×3 (08:03→17:42)
[2025-03-14] MEDS: PANTOPRAZOLE 40 MG TABLET PO ×2 (08:04→20:35)
[2025-03-14] MEDS: INSULIN LISPRO (AdmeLOG) 1 UNIT/0.01 ML UNIT SC ×3 (08:05→20:34)
--- NOTE | 2025-03-14 09:40 | CHAP ---
Patient expressed gratitude for visit and prayer.
[2025-03-14 10:11] LABS: Folate 22.57 ng/mL (>5.38); Vitamin B12 1434 pg/mL (211-911)
--- NOTE | 2025-03-14 11:26 | ESPR_ITS ---
Documentation for date of: 03/14/25 Subjective Subjective Interval history: Reason for consult: ESRD on HD - dialysis management History of present illness: 59-year-old female with a past medical history significant for ESRD on hemodialysis (MWF) secondary to diabetic nephropathy, insulin-dependent diabetes mellitus type 2, hypertension, asthma, GERD, and depression, who presented to the ED on 03/10/2025 with progressive weakness, shortness of breath, and melena for the past several days. She reports black watery stools since 03/05 associated with abdominal discomfort, worse in the right upper quadrant. At her dialysis session yesterday, she was noted to be weak and was advised to come to the hospital. Initial labs revealed a hemoglobin of 7.1 (down from 12 g/dL three months prior). CT imaging showed cirrhotic liver morphology with mild ascites and suspected esophageal varices. She received 1 unit PRBC, IV pantoprazole, ceftriaxone, and octreotide infusion. GI was consulted and planned for endoscopic evaluation. Nephrology was consulted for continuation of dialysis management during hospitalization. The patient is well known to Dr. Cortes?s dialysis service and receives maintenance HD on MWF schedule. She completed her last HD session on 03/10 prior to admission and is tolerating dialysis today without complications. She denies chest pain, shortness of breath, nausea, vomiting, or leg swelling at this time. 03/11/25: Patient seen and examined at bedside during dialysis. Awake, alert, and cooperative. Reports feeling weak but otherwise stable. Denies chest pain, dyspnea, abdominal pain, nausea, vomiting, or fever. Appetite fair. No leg swelling. BP: 136/61, HR: 69. Labs: WBC 7.0, Hgb 7.8, Hct 22, Plt 114, Na 135, K 4.8, Cl 91, CO2 26, BUN 39, Cr 5.4, Glu 161, Ca 8.5, Mg 2.1, Phos 6.1, A1c 6.1. Patient remains hemodynamically stable. Here for routine dialysis per MWF schedule. 03/12/2025: Patient seen and examined today. More alert and talkative compared to yesterday. Reports mild mid-epigastric abdominal pain but no nausea, vomiting, chest pain, or shortness of breath. She was observed drinking GoLytely in preparation for colonoscopy today since EGD was unremarkable. Will proceed with hemodialysis today as scheduled. BP: 145/77, HR: 83. Labs: WBC 9.5, Hgb 7.8, Hct 23, Plt 150, Na 137, K 5.1, Cl 92, CO2 27, BUN 44, Cr 6.6, Glu 186, Ca 8.5, Mg 2.5, Phos 7.0. 03/14/2025: Patient seen and examined today. Had a colonoscopy. Wants to go home. This morning, she reports feeling well with no new complaints denies chest pain, shortness of breath, nausea, vomiting, or abdominal pain. Appetite improving. Blood pressure stable. Labs reviewed. Hemoglobin 7.2. Blood transfusion ordered with dialysis. Review of Systems Review of Systems Narrative Review of Systems: CONSTITUTIONAL: Patient denies any fever, chills. Complaining of fatigue HEENT: Denies any visual disturbances or hearing problems. CARDIOVASCULAR: Patient denies any chest pain, shortness of breath, swelling in the lower extremities. PULMONARY: Patient denies any shortness of breath, cough. GASTROINTESTINAL: Patient denies any abdominal pain, constipation, nausea, vomiting, diarrhea. GENITOURINARY: Patient denies any urinary symptoms of burning or frequency or hematuria, denies any form in the urine. SKIN: Denies any rash. MUSCULOSKELETAL: Gait imbalance NEUROLOGICAL: Denies any neurological problems of strokes, seizures or confusion. Denies any memory problems. PSYCHIATRIC: Denies any depression or anxiety. LYMPHATICS : No lymphadenopathy Exam Vital Signs Temp Pulse Resp BP Pulse Ox O2 Del Method O2 Flow Rate 36.4 C 74 16 169/68 H 97 Nasal Cannula 2 03/14/25 08:00 03/14/25 10:09 03/14/25 10:09 03/14/25 08:04 03/14/25 10:09 03/14/25 08:00 03/14/25 10:09 Narrative Exam General: Awake, oriented ?3, mild fatigue noted. HEENT: Moist mucous membranes, anicteric sclerae. CVS: Regular rate and rhythm, no rubs, S1/S2 present. Resp: Lungs clear bilaterally, no wheezes/rales. Abdomen: Soft, non-distended, mild epigastric tenderness improving. Extremities: No edema. Skin: Warm, intact. Access: L AVF with palpable thrill and audible bruit. Objective Labs 03/15/25 05:36 03/15/25 05:36 Labs: Laboratory Results - last 24 hr 03/14/25 03/14/25 05:08 09:04 WBC 6.6 RBC 2.15 L Hgb 7.2 L Hct 21.9 L* MCV 102 H MCH 33.5 MCHC 32.9 RDW Std Deviation 59.1 H Plt Count 167 Neut % (Auto) 76 Lymph % (Auto) 13 [place] % (Auto) 7 Eos % (Auto) 3 Baso % (Auto) 1 Neut # (Auto) 5.0 Lymph # (Auto) 0.9 L [place] # (Auto) 0.4 Eos # (Auto) 0.2 Baso # (Auto) 0.0 Immature Gran # (Auto) 0.04 H Absolute Nucleated RBC 0.00 Immature Gran % 1 H Nucleated RBC % 0 Sodium 141 Potassium 4.3 Chloride 95 L Carbon Dioxide 31.2 H Anion Gap 15 BUN 22 Creatinine 6.1 H* D Estim Creat Clear Calc 7.5 L eGFR 7 L* BUN/Creatinine Ratio 4 L Glucose 227 H D Calculated Osmolality 291 Calcium 8.9 Corrected Calcium 9.0 Phosphorus 4.6 Magnesium 2.1 Total Bilirubin 0.3 AST 19 ALT 9 L Alkaline Phosphatase 135 H D Total Protein 6.3 Albumin 3.9 Globulin 2.4 Albumin/Globulin Ratio 1.6 Vitamin B12 1434 H Folate 22.57 Blood Type O Positive Antibody Screen NEGATIVE Crossmatch See Detail Blood Bank Wristband ID Yes Assessment & Plan Assessment and plan (1) Abdominal pain: Status: Acute Assessment and plan: # ESRD on HD Routine MWF HD patient of Dr. Cortes, tolerated HD yesterday without complication. Plan: * Continue regular MWF dialysis schedule. * Labs improved post-HD. * Continue calcium acetate TID with meals. * Monitor daily BMP, Mg, Phos. * Avoid nephrotoxins; renally dose meds. * Continue strict I&O and daily weights. # Anemia of CKD Hgb 7.5, stable post-transfusion and post-HD. Plan: * Monitor H&H daily. * Transfuse per primary if Hgb <7 or symptomatic. * Resume HEMA when appropriate. # Electrolyte imbalance K 4.3, Na 143, CO2 28; all stable and within goal post-HD. Plan: * Continue current dialysate composition. * Maintain low-K, low-Phos renal diet. # Hyperphosphatemia Phos improved from 7.0 -> 4.9. Plan: * Continue calcium acetate TID. * Reinforce low-phosphorus diet. # Acute blood loss anemia # Hypertension #HTN #IDDM2 #Diabetic neuropathy #GERD #Depression #Asthma #UTI Management per primary team ----- Plan discussed with attending physician Dr. Sophia Kendall MD PGY-1 Internal Medicine Attending Provider Attestation/Addendum Patient seen and examined with resident physician Dr. Kendall. Note reviewed, agree with findings and recommendations. Next dialysis scheduled for tomorrow Additional Assessment & Plan Additional Plan: 59-year-old female with ESRD on HD (MWF) secondary to diabetic nephropathy, admitted for GI bleed with anemia, now stable and tolerating HD well. # ESRD on HD Routine MWF HD patient of Dr. Cortes Plan: * Continue regular MWF dialysis schedule. * Patient currently seen on dialysis. Tolerating dialysis without any problems. Hemodialysis for 3 hours, 2K, ultrafiltration 2-3 L, Epogen 6000, no heparin ordered. Plan of care discussed with the dialysis nurse. Please see dialysis flowsheet for further details. * Labs improved post-HD. * Continue calcium acetate TID with meals. * Monitor daily BMP, Mg, Phos. * Avoid nephrotoxins; renally dose meds. * Continue strict I&O and daily weights. # Anemia of CKD Hgb 7.5, stable post-transfusion and post-HD. 1 unit PRBC ordered with dialysis colonoscopy negative for any mass Plan: * Monitor H&H daily. * Transfuse per primary if Hgb <7 or symptomatic. * Resume HEMA when appropriate. # Electrolyte imbalance K 4.3, Na 143, CO2 28; all stable and within goal post-HD. Plan: * Continue current dialysate composition. * Maintain low-K, low-Phos renal diet. # Hyperphosphatemia Phos improved from 7.0 -> 4.9. Plan: * Continue calcium acetate TID. * Reinforce low-phosphorus diet. # Acute blood loss anemia # Hypertension #HTN #IDDM2 #Diabetic neuropathy #GERD #Depression #Asthma #UTI Management per primary team Quality - progress note Quality Measures Quality Measures: VTE prophylaxis Reason for Continued Stay Reason for Continued Stay: further monitoring
--- NOTE | 2025-03-14 14:02 | PC.NURSE ---
Addendum entered by Sam Hansen RN 03/14/25 14:03: UF GOAL INCREASED TO ACCOUNT TOLERATED. Original Note: INITIATION OF TRANSFUSION OF 1 UNIT OF PRBC'S PER MD ORDER, WILL CONT. TO MONITOR
[2025-03-14] MEDS: EPOETIN ALFA-EPBX INJ 10,000 UNIT/ML VIAL (NON-ESRD) 10000 UNIT SC (15:56)
--- NOTE | 2025-03-14 16:42 | ESPR_ITS ---
Documentation for date of: 03/14/25 Subjective - Hospitalist Subjective Interval history: Patient seen and examined at bedside this morning. Appears comfortable and denies any new complaints. No acute overnight events. Vital signs are stable except for mild hypertension. Underwent colonoscopy yesterday, was found to have internal hemorrhoids but no active bleeding. This morning, patient noted to have hemoglobin of 7.2, decreasing compared to yesterday. Patient will receive transfusion with hemodialysis today. We will monitor her hemoglobin closely after transfusion, if stable, we will plan for discharge tomorrow. Review of Systems Review of Systems Systems Reviewed: All systems reviewed, normal except as documented Exam Vital Signs Temp Pulse Resp BP Pulse Ox O2 Del Method O2 Flow Rate 98.0 F 81 18 188/84 H 99 Nasal Cannula 2 03/14/25 16:25 03/14/25 16:25 03/14/25 16:25 03/14/25 16:25 03/14/25 16:03/14/25 12:00 03/14/25 16:25 Narrative GENERAL: no acute distress, AAO x3, comfortably laying in bed HEENT: Head AT/ NC. Mucous membranes moist. PERRL. no neck masses NECK: Supple, no lymphadenopathy, no carotid bruits. CARDIOVASCULAR: RRR. Normal S1/S2, No m/r/g RESPIRATORY: CTAB. No wheezing, rhonchi, crackles. GASTROINTESTINAL: Soft, nontender, no organomegaly, bowel sound present MUSCULOSKELETAL:? No cyanosis or edema, no visible joint swelling. NEUROLOGICAL: CN II-XII grossly intact. No focal deficits. Sensation intact, symmetric. PSYCHIATRIC: Awake and alert, not agitated, normal mood and affect. SKIN: No obvious rashes, no jaundice, normal turgor Objective - Hospitalist Labs Diagram: 03/14/25 05:08 03/14/25 05:08 Labs: Laboratory Results - last 24 hr 03/14/25 03/14/25 05:08 09:04 WBC 6.6 RBC 2.15 L Hgb 7.2 L Hct 21.9 L* MCV 102 H MCH 33.5 MCHC 32.9 RDW Std Deviation 59.1 H Plt Count 167 Neut % (Auto) 76 Lymph % (Auto) 13 [place] % (Auto) 7 Eos % (Auto) 3 Baso % (Auto) 1 Neut # (Auto) 5.0 Lymph # (Auto) 0.9 L [place] # (Auto) 0.4 Eos # (Auto) 0.2 Baso # (Auto) 0.0 Immature Gran # (Auto) 0.04 H Absolute Nucleated RBC 0.00 Immature Gran % 1 H Nucleated RBC % 0 Sodium 141 Potassium 4.3 Chloride 95 L Carbon Dioxide 31.2 H Anion Gap 15 BUN 22 Creatinine 6.1 H* D Estim Creat Clear Calc 7.5 L eGFR 7 L* BUN/Creatinine Ratio 4 L Glucose 227 H D Calculated Osmolality 291 Calcium 8.9 Corrected Calcium 9.0 Phosphorus 4.6 Magnesium 2.1 Total Bilirubin 0.3 AST 19 ALT 9 L Alkaline Phosphatase 135 H D Total Protein 6.3 Albumin 3.9 Globulin 2.4 Albumin/Globulin Ratio 1.6 Vitamin B12 1434 H Folate 22.57 Blood Type O Positive Antibody Screen NEGATIVE Crossmatch See Detail Blood Bank Wristband ID Yes Assessment & Plan Plan: Patient is a 59 years old female with past medical history of ESRD on hemodialysis, diabetic nephropathy, insulin-dependent diabetes mellitus, hypertension, GERD, depression who presented to the ED with complaint of weakness, shortness of breath and melena. Patient was admitted for management of GI bleeding. #GI bleeding, likely upper GI #Melena #GERD Underwent EGD on 03/11 which showed erythematous mucosa in the stomach, erythematous duodenopathy, stigmata of recent bleeding in the stomach without active bleeding Underwent colonoscopy yesterday, was found to have hemorrhoids but no active bleeding Continues to be on Protonix 40 twice daily Has been started on renal diet #ESRD on hemodialysis #Hyperphosphatemia Patient receiving regular hemodialysis with nephrology Underwent hemodialysis today Continues to be on home calcium acetate #Hypertension Continues to be on home carvedilol #Dyslipidemia Continues to be on atorvastatin 40 #Depression Continues to be on sertraline 50 CODE STATUS: DNR/DNI DVT prophylaxis: SCDs Diet: Renal diet Disposition: Telemetry, close monitoring of hemoglobin, PRBC transfusion, likely discharge in next 24 to 48 hours if hemoglobin remains stable Driss Matthews MD Time Spent with Patient Time: Total time spent is greater than 50% in coordination of care (as documented) at patient's floor/unit and/or counseling patient: Time with patient: Greater than 35 minutes Reason for Continued Stay Reason for continued stay: further monitoring Quality Measures Quality Measures VTE prophylaxis
[2025-03-14 18:53] LABS: Hematocrit 28.6 % (36.0-46.0); Hemoglobin 10.0 g/dL (12.0-16.0)
[2025-03-14] MEDS: ACETAMINOPHEN 325 MG TABLET 650 MG PO (19:21)
[2025-03-14] MEDS: SERTRALINE HCL 25 MG TABLET 50 MG PO (20:34)
[2025-03-14] MEDS: ATORVASTATIN CALCIUM 20 MG TABLET 40 MG PO (20:35)
[2025-03-15] VITALS (7 sets, daily range): BP systolic 149–174; BP diastolic 76–93; PULSE 68–88; RESP 13–20; TEMP 36.1–36.2; O2SAT 97–100; BMI 29.2
[2025-03-15 05:58] LABS: Basophils # (Auto) 0.0 Thou/mm3 (0.0-0.2); Basophils % (Auto) 1 % (0-2.5); Eosinophils # (Auto) 0.2 Thou/mm3 (0.0-0.5); Eosinophils % (Auto) 3 % (0-10); Hematocrit 27.4 % (36.0-46.0); Hemoglobin 9.3 g/dL (12.0-16.0); Immature Granulocytes Auto 0.05 Thou/mm3 (0.00-0.00); Lymphocytes # (Auto) 1.0 Thou/mm3 (1.0-4.8); Lymphocytes % (Auto) 14 % (10-50); Mean Corpuscular HGB Conc 33.9 g/dl (31.0-37.0); Mean Corpuscular Hemoglobin 33.3 pg (25.0-35.0); Mean Corpuscular Volume 98 fL (80-100); Monocytes # (Auto) 0.5 Thou/mm3 (0.0-0.8); Monocytes % (Auto) 7 % (0-12); Neutrophils # (Auto) 5.0 Thou/mm3 (1.8-7.7); Neutrophils % (Auto) 74 % (37-80); Nucleated Red Blood Cell # 0.03 Thou/mm3 (0.00-0.00); Nucleated Red Blood Cell % 0 /100 WBC (0); Platelet Count 148 Thou/mm3 (140-440); RDW Standard Deviation 63.5 fL (36.4-46.3); Red Blood Count 2.79 Miln/mm3 (4.00-5.20); White Blood Count 6.7 Thou/mm3 (3.6-11.0)
[2025-03-15 06:32] LABS: Alanine Aminotransferase 8 U/L (10-49); Albumin, Serum 4.1 gm/dL (3.4-4.8); Albumin/Globulin Ratio 1.5 (1.2-2.2); Alkaline Phosphatase 140 U/L (46-116); Anion Gap 14 (7-16); Aspartate Amino Transferase 24 U/L (0-34); BUN/Creatinine Ratio 3 Ratio (12-20); Bilirubin,Total 0.4 mg/dL (0.3-1.2); Blood Urea Nitrogen 16 mg/dL (9-23); Calcium 8.9 mg/dL (8.3-10.6); Calcium (Corrected) 8.9 mg/dL (8.5-10.1); Carbon Dioxide 27.0 mMol/L (20.0-31.0); Chloride 97 mMol/L (98-107); Creatinine (Component) 4.6 mg/dL (0.6-1.3); Estimated Creatinine Clearance 10.0 mL/min (>60); Globulin 2.7 gm/dL (2.3-3.5); Glucose 181 mg/dL (74-106); Magnesium 2.0 mg/dL (1.6-2.6); Osmolality,Calculated 281 (275-295); Phosphorous 4.1 mg/dL (2.4-5.1); Potassium 4.6 mMol/L (3.4-5.1); Sodium 138 mMol/L (136-145); Total Protein 6.8 gm/dL (5.7-8.2); eGFR 10 See Note
--- NOTE | 2025-03-15 07:07 | ESPR_ITS ---
Documentation for date of: 03/15/25 Subjective Subjective Interval history: Reason for consult: ESRD on HD - dialysis management History of present illness: 59-year-old female with a past medical history significant for ESRD on hemodialysis (MWF) secondary to diabetic nephropathy, insulin-dependent diabetes mellitus type 2, hypertension, asthma, GERD, and depression, who presented to the ED on 03/10/2025 with progressive weakness, shortness of breath, and melena for the past several days. She reports black watery stools since 03/05 associated with abdominal discomfort, worse in the right upper quadrant. At her dialysis session yesterday, she was noted to be weak and was advised to come to the hospital. Initial labs revealed a hemoglobin of 7.1 (down from 12 g/dL three months prior). CT imaging showed cirrhotic liver morphology with mild ascites and suspected esophageal varices. She received 1 unit PRBC, IV pantoprazole, ceftriaxone, and octreotide infusion. GI was consulted and planned for endoscopic evaluation. Nephrology was consulted for continuation of dialysis management during hospitalization. The patient is well known to Dr. Cortes?s dialysis service and receives maintenance HD on MWF schedule. She completed her last HD session on 03/10 prior to admission and is tolerating dialysis today without complications. She denies chest pain, shortness of breath, nausea, vomiting, or leg swelling at this time. 03/11/25: Patient seen and examined at bedside during dialysis. Awake, alert, and cooperative. Reports feeling weak but otherwise stable. Denies chest pain, dyspnea, abdominal pain, nausea, vomiting, or fever. Appetite fair. No leg swelling. BP: 136/61, HR: 69. Labs: WBC 7.0, Hgb 7.8, Hct 22, Plt 114, Na 135, K 4.8, Cl 91, CO2 26, BUN 39, Cr 5.4, Glu 161, Ca 8.5, Mg 2.1, Phos 6.1, A1c 6.1. Patient remains hemodynamically stable. Here for routine dialysis per MWF schedule. 03/12/2025: Patient seen and examined today. More alert and talkative compared to yesterday. Reports mild mid-epigastric abdominal pain but no nausea, vomiting, chest pain, or shortness of breath. She was observed drinking GoLytely in preparation for colonoscopy today since EGD was unremarkable. Will proceed with hemodialysis today as scheduled. BP: 145/77, HR: 83. Labs: WBC 9.5, Hgb 7.8, Hct 23, Plt 150, Na 137, K 5.1, Cl 92, CO2 27, BUN 44, Cr 6.6, Glu 186, Ca 8.5, Mg 2.5, Phos 7.0. 03/15/2025: Patient seen and examined today. Had a colonoscopy. Wants to go home. This morning, she reports feeling well with no new complaints denies chest pain, shortness of breath, nausea, vomiting, or abdominal pain. Appetite improving. Blood pressure stable. Labs reviewed. Hemoglobin stable Review of Systems Review of Systems Narrative Review of Systems: CONSTITUTIONAL: Patient denies any fever, chills. Complaining of fatigue HEENT: Denies any visual disturbances or hearing problems. CARDIOVASCULAR: Patient denies any chest pain, shortness of breath, swelling in the lower extremities. PULMONARY: Patient denies any shortness of breath, cough. GASTROINTESTINAL: Patient denies any abdominal pain, constipation, nausea, vomiting, diarrhea. GENITOURINARY: Patient denies any urinary symptoms of burning or frequency or hematuria, denies any form in the urine. SKIN: Denies any rash. MUSCULOSKELETAL: Gait imbalance NEUROLOGICAL: Denies any neurological problems of strokes, seizures or confusion. Denies any memory problems. PSYCHIATRIC: Denies any depression or anxiety. LYMPHATICS : No lymphadenopathy Exam Vital Signs Temp Pulse Resp BP Pulse Ox O2 Del Method O2 Flow Rate 36.1 C 73 18 167/77 H 100 Nasal Cannula 2 03/15/25 04:00 03/15/25 04:00 03/15/25 04:00 03/15/25 04:00 03/15/25 04:00 03/15/25 04:00 03/15/25 04:00 Narrative Exam General: Awake, oriented ?3, mild fatigue noted. HEENT: Moist mucous membranes, anicteric sclerae. CVS: Regular rate and rhythm, no rubs, S1/S2 present. Resp: Lungs clear bilaterally, no wheezes/rales. Abdomen: Soft, non-distended, mild epigastric tenderness improving. Extremities: No edema. Skin: Warm, intact. Access: L AVF with palpable thrill and audible bruit. Objective Labs 03/15/25 05:36 03/15/25 05:36 Labs: Laboratory Results - last 24 hr 03/14/25 03/14/25 03/14/25 05:08 09:04 18:34 WBC RBC Hgb 10.0 L D Hct 28.6 L MCV MCH MCHC RDW Std Deviation Plt Count Neut % (Auto) Lymph % (Auto) Cross % (Auto) Eos % (Auto) Baso % (Auto) Neut # (Auto) Lymph # (Auto) Cross # (Auto) Eos # (Auto) Baso # (Auto) Immature Gran # (Auto) Absolute Nucleated RBC Immature Gran % Nucleated RBC % Sodium Potassium Chloride Carbon Dioxide Anion Gap BUN Creatinine Estim Creat Clear Calc eGFR BUN/Creatinine Ratio Glucose Calculated Osmolality Calcium Corrected Calcium Phosphorus Magnesium Total Bilirubin AST ALT Alkaline Phosphatase Total Protein Albumin Globulin Albumin/Globulin Ratio Vitamin B12 1434 H Folate 22.57 Blood Type O Positive Antibody Screen NEGATIVE Crossmatch See Detail Blood Bank Wristband ID Yes 03/15/25 05:36 WBC 6.7 RBC 2.79 L Hgb 9.3 L Hct 27.4 L MCV 98 MCH 33.3 MCHC 33.9 RDW Std Deviation 63.5 H Plt Count 148 Neut % (Auto) 74 Lymph % (Auto) 14 [place] % (Auto) 7 Eos % (Auto) 3 Baso % (Auto) 1 Neut # (Auto) 5.0 Lymph # (Auto) 1.0 Cross # (Auto) 0.5 Eos # (Auto) 0.2 Baso # (Auto) 0.0 Immature Gran # (Auto) 0.05 H Absolute Nucleated RBC 0.03 H Immature Gran % 1 H Nucleated RBC % 0 Sodium 138 Potassium 4.6 Chloride 97 L Carbon Dioxide 27.0 Anion Gap 14 BUN 16 Creatinine 4.6 H* D Estim Creat Clear Calc 10.0 L eGFR 10 L* BUN/Creatinine Ratio 3 L Glucose 181 H Calculated Osmolality 281 Calcium 8.9 Corrected Calcium 8.9 Phosphorus 4.1 Magnesium 2.0 Total Bilirubin 0.4 AST 24 ALT 8 L Alkaline Phosphatase 140 H Total Protein 6.8 Albumin 4.1 Globulin 2.7 Albumin/Globulin Ratio 1.5 Vitamin B12 Folate Blood Type Antibody Screen Crossmatch Blood Bank Wristband ID Assessment & Plan Assessment and plan (1) Abdominal pain: Status: Acute Additional Assessment & Plan Additional Plan: 59-year-old female with ESRD on HD (MWF) secondary to diabetic nephropathy, admitted for GI bleed with anemia, now stable and tolerating HD well. # ESRD on HD Routine MWF HD patient of Dr. Cortes Plan: * Continue regular MWF dialysis schedule. * Continue calcium acetate TID with meals. * Monitor daily BMP, Mg, Phos. * Avoid nephrotoxins; renally dose meds. * Continue strict I&O and daily weights. # Anemia of CKD Hgb stable post-transfusion and post-HD. colonoscopy negative for any mass Plan: * Monitor H&H daily. * Transfuse per primary if Hgb <7 or symptomatic. * Resume HEMA when appropriate. # Electrolyte imbalance K 4.3, Na 143, CO2 28; all stable and within goal post-HD. Plan: * Continue current dialysate composition. * Maintain low-K, low-Phos renal diet. # Hyperphosphatemia Phos improved from 7.0 -> 4.9. Plan: * Continue calcium acetate TID. * Reinforce low-phosphorus diet. # Acute blood loss anemia # Hypertension #HTN #IDDM2 #Diabetic neuropathy #GERD #Depression #Asthma #UTI Management per primary team
[2025-03-15] MEDS: ACETAMINOPHEN 325 MG TABLET 650 MG PO (08:21)
[2025-03-15] MEDS: PANTOPRAZOLE 40 MG TABLET PO (08:21)
[2025-03-15] MEDS: CALCIUM ACETATE 667 MG TABLET 1334 MG PO ×2 (08:22→12:06)
[2025-03-15] MEDS: INSULIN LISPRO (AdmeLOG) 1 UNIT/0.01 ML UNIT SC ×2 (08:22→12:05)
[2025-03-15] MEDS: AMOXICILLIN/POT CLAV 500 MG TABLET PO (08:37)
--- NOTE | 2025-03-15 12:18 | PD.IMPROG ---
Documentation for date of: 03/15/25 Subjective Subjective Interval history: Patient evaluated hemoglobin hematocrit 9.3 and 27.4 Exam Vital Signs Temp Pulse Resp BP Pulse Ox O2 Del Method O2 Flow Rate 97.2 F 70 13 165/76 H 99 Nasal Cannula 1 03/15/25 08:00 03/15/25 08:21 03/15/25 08:00 03/15/25 08:21 03/15/25 08:00 03/15/25 04:00 03/15/25 07:29 Objective Labs 03/15/25 05:36 03/15/25 05:36 Labs: Laboratory Results - last 24 hr 03/14/25 03/14/25 03/15/25 09:04 18:34 05:36 WBC 6.7 RBC 2.79 L Hgb 10.0 L D 9.3 L Hct 28.6 L 27.4 L MCV 98 MCH 33.3 MCHC 33.9 RDW Std Deviation 63.5 H Plt Count 148 Neut % (Auto) 74 Lymph % (Auto) 14 [place] % (Auto) 7 Eos % (Auto) 3 Baso % (Auto) 1 Neut # (Auto) 5.0 Lymph # (Auto) 1.0 [place] # (Auto) 0.5 Eos # (Auto) 0.2 Baso # (Auto) 0.0 Immature Gran # (Auto) 0.05 H Absolute Nucleated RBC 0.03 H Immature Gran % 1 H Nucleated RBC % 0 Sodium 138 Potassium 4.6 Chloride 97 L Carbon Dioxide 27.0 Anion Gap 14 BUN 16 Creatinine 4.6 H* D Estim Creat Clear Calc 10.0 L eGFR 10 L* BUN/Creatinine Ratio 3 L Glucose 181 H Calculated Osmolality 281 Calcium 8.9 Corrected Calcium 8.9 Phosphorus 4.1 Magnesium 2.0 Total Bilirubin 0.4 AST 24 ALT 8 L Alkaline Phosphatase 140 H Total Protein 6.8 Albumin 4.1 Globulin 2.7 Albumin/Globulin Ratio 1.5 Blood Type O Positive Antibody Screen NEGATIVE Crossmatch See Detail Blood Bank Wristband ID Yes Impressions Impression: Gastritis Esophagitis 2+ internal hemorrhoids Agree with discharge planning No GI follow-up necessary Assessment & Plan Time Spent With Patient Time: Total time spent is greater than 50% in coordination of care (as documented) at patient's floor/unit and/or counseling patient:
--- NOTE | 2025-03-15 13:30 | ESDS_ITS ---
Planned Discharge Date 03/15/25 DS: Providers Provider Date of admission: 03/10/25 16:12 Primary care physician: Physician No Primary/Family Admitting Provider: Oswaldo Cabrera DO Attending Provider on Admission: Driss Matthews MD Consults: 03/10/25 16:25 Consult to Gastroenterology Stat Comment: Consulting Provider: Ethan Infante Consult to Nephrology Routine Comment: Consulting Provider: Jonas Cortes 03/10/25 21:24 Referral Lawrence Routine Comment: Referral Physical Therapy Routine Comment: Physician Instructions: Attending Provider on DC: Driss Matthews MD Discharging Provider: Driss Matthews MD Diagnosis Problem List Completed Was Problem List Reviewed/Reconciled?: Yes Hospital Course - Hospitalist Hospital Course Hospital course: Patient is a 59-year-old female with a past medical history significant for ESRD on hemodialysis (MWF) secondary to diabetic nephropathy, insulin-dependent diabetes mellitus type 2, hypertension, asthma, GERD, and depression, who presented to the ED on 03/10/2025 with progressive weakness, shortness of breath, and melena for the past several days. She was then admitted for management of GI bleeding, acute blood loss anemia, UTI. Patient received PRBC transfusion, was initially started on octreotide drip, IV Protonix and Rocephin. Underwent EGD on 03/11/2025, was found to have gastritis, duodenitis with stigmata of bleeding around entire stomach. Patient then received a GoLytely preparation and underwent colonoscopy on 03/13/2025, was found to have internal hemorrhoids which were banded. She was also found to have diverticula but no active bleeding. Patient received hemodialysis as per her schedule with nephrology on board. Octreotide drip was discontinued after the EGD and patient was continued on Protonix IV. Yesterday, hemoglobin noted to be downtrending, patient received further blood transfusion during hemodialysis. This morning, patient states she is feeling well at bedside except for her earache and allergy symptoms. Noted to have congested and bulging tympanic membrane on otoscopy. Lab results are also stable. Hemoglobin is stable at 9.3. No other symptoms of active bleeding. Discussed with gastroenterology, agreed on patient being stable for discharge. We will discharge her home with home health for continuation of physical therapy as recommended by PT. We will continue amoxicillin with clavulanic acid for concern of otitis media. We will continue with Protonix. Also added cetirizine for allergies. Patient is recommended to follow-up with her PCP and gastroenterology in 1 to 2 weeks of discharge. Recommended to obtain CBC in 1 week of discharge. She is also recommended to discuss with her PCP regarding her ear pain if does not improve in few days. #GI bleeding, likely upper GI #Melena #GERD #ESRD on hemodialysis #Hyperphosphatemia #Hypertension #Dyslipidemia #Depression #Otitis media #Seasonal allergies Driss Matthews MD Time Spent with Patient Time attestation: Total time spent providing and/or coordinating discharge services: 45 min Time spent: Greater than 30 minutes Home Health Home Health Referral Orders: 03/15/25 09:25 Home Health Referral Routine Reason For Exam: Generalized weakness Home-Bound The patient must either because of illness or injury, need the aid of supportive devices such as crutches, canes, wheelchairs, and walkers; the use of special transportation; or the assistance of another person in order to leave their place of residence; OR have a condition such that leaving his or her home is medically contraindicated. In addition, the patient also meets the following criteria: patient is normally unable to leave the home and leaving home requires considerable taxing effort. Addendum to Home Health Certification Practitioner's Certification: I certify that the patient has been under my care in the hospital and the care of attending physician (see below). We had a [id number] encounter on (see date below). My clinical findings indicate that the patient is home bound per the above criteria and the Home Health Services noted in these orders are medically necessary. The primary reason for the [id number] encounter is related to the fact that the patient requires home health services. Date Certifying Sbdd-on-Rakt Physician Encounter: 03/10/25 Physician's Name who will Assume Oversight for Services: Miguel Macdonald Physician's Phone No.who will Assume Oversight for Service: SPOOL CARRIER - Community Resources: No PT to Evaluate: Yes PT to evaluate and provide a treatmnet plan to increase patient's mobility and strength. Wound Care: No IV Therapy: No RN Safety Evaluation: Yes RN to evaluate and create a plan of care that will produce positive outcomes. Palliative Treatment: No Palliative treatment and evaluate the need for hospice. Home Health Aide - Personal Care: No Home Health Aide to assist with any ADL's. Discharge Results Labs Diagrams: 03/15/25 05:36 03/15/25 05:36 Labs: Short CBC 03/15/25 Range/Units 05:36 WBC 6.7 (3.6-11.0) Thou/mm3 Hgb 9.3 L (12.0-16.0) g/dL Hct 27.4 L (36.0-46.0) % Plt Count 148 (140-440) Thou/mm3 BMP 03/15/25 05:36 Sodium 138 Potassium 4.6 Chloride 97 L Carbon Dioxide 27.0 BUN 16 Creatinine 4.6 H* D Glucose 181 H Calcium 8.9 Liver Function 03/15/25 Range/Units 05:36 Total Bilirubin 0.4 (0.3-1.2) mg/dL AST 24 (0-34) U/L ALT 8 L (10-49) U/L Alkaline Phosphatase 140 H (46-116) U/L Albumin 4.1 (3.4-4.8) gm/dL Exam Vital Signs Temp Pulse Resp BP Pulse Ox O2 Del Method O2 Flow Rate 96.9 F 73 20 149/93 H 97 Nasal Cannula 2 03/15/25 14:12 03/15/25 14:12 03/15/25 14:12 03/15/25 14:12 03/15/25 14:12 03/15/25 14:12 03/15/25 14:12 Narrative GENERAL: no acute distress, AAO x3, comfortably laying in bed HEENT: Head AT/ NC. Mucous membranes moist. PERRL. no neck masses NECK: Supple, no lymphadenopathy, no carotid bruits. CARDIOVASCULAR: RRR. Normal S1/S2, No m/r/g RESPIRATORY: CTAB. No wheezing, rhonchi, crackles. GASTROINTESTINAL: Soft, nontender, no organomegaly, bowel sound present MUSCULOSKELETAL:? No cyanosis or edema, no visible joint swelling. NEUROLOGICAL: CN II-XII grossly intact. No focal deficits. Sensation intact, symmetric. PSYCHIATRIC: Awake and alert, not agitated, normal mood and affect. SKIN: No obvious rashes, no jaundice, normal turgor Discharge Plan Plan Patient Disposition: Home w/HOME HEALTH Patient condition on transfer: Stable Care Plan Goals: Please follow up with your PCP and Gastroenterology in 1-2 weeks of discharge. Please obtain CBC within 1 week with your PCP Please visit ED if you start having bloody vomiting, blood in your stool or dark stool. Please continue Antibiotics for total of 7 days for your Otitis Media Please discuss with your PCP regarding your ear if it does not improve Prescriptions/Referrals Prescriptions/Med Rec: New amoxicillin-pot clavulanate 500-125 mg tablet 1 tab PO BID Qty: 14 0RF cetirizine 10 mg tablet 10 mg PO QDAY PRN (Reason: allergy symptoms) Qty: 7 0RF pantoprazole 40 mg tablet,delayed release (DR/EC) 40 mg PO QDAY Qty: 30 0RF Continued calcium acetate 667 mg Tablet 1,334 mg PO TID Rx Instructions: after every meal atorvastatin 40 mg tablet 40 mg PO HS Patient Comments: TOME JAMES TABLETA TODOS LOS D FOR 90 DAYS carvedilol 6.25 mg tablet 6.25 mg PO BID Patient Comments: TOME JAMES TABLETA DOS VECES AL D A nifedipine 90 mg tablet extended release 90 mg PO QDAY Patient Comments: TOME JAMES TABLETA TODOS LOS D EN EST MELLISSA VAC O FOR 90 DAYS insulin glargine [Basaglar KwikPen U-100 Insulin] 100 unit/mL (3 mL) insulin pen 20 unit subcut QDAY hydrocodone-acetaminophen 5-325 mg tablet 1 tab PO TID MDD 15mg PRN (Reason: pain) Qty: 18 0RF lidocaine 5 % adhesive patch,medicated 1 patch topical Q24H Rx Instructions: leave on most painful area for up to 12 hrs albuterol 90 mcg/actuation aerosol 90 mcg inhalation [id number] cholecalciferol (vitamin D3) [Vitamin D3] 25 mcg (1,000 unit) capsule 1,000 unit PO QDAY hydralazine 50 mg Tablet 50 mg PO TID sertraline 100 mg tablet 50 mg PO DAILY Discontinued glipizide 5 mg Tablet 5 mg PO QDAY famotidine 20 mg tablet 20 mg PO QDAY Referrals: No Primary/Family,Physician [Primary Care Provider] Patient/Caregiver Discharge Instructions Discharge Activity: as per physical therapy Other Discharge Activity Instructions:: Please follow up with your PCP and Gastroenterology in 1-2 weeks of discharge. Please obtain CBC within 1 week with your PCP Please visit ED if you start having bloody vomiting, blood in your stool or dark stool. Please continue Antibiotics for total of 7 days for your Otitis Media Please discuss with your PCP regarding your ear if it does not improve Education Materials: Bleeding Gastrointestinal, Abdominal Pain, Diabetes and Kidney Disease Print Language: Macedonian Stand Alone Forms: Ghazal Award Info., Patient Portal Info Letter Discharge Order Discharge Orders: Discharge (Routine); Ordered 03/15/25 Ordered By: Driss Matthews Quality Discharge Quality Measures VTE prophylaxis
--- NOTE | 2025-03-15 14:00 | PC.CC ---
Jennifer THOMPSON was consulted regarding mental health resources for the patient. PIPELINE MAINTENANCE SUPERVISOR made face to face contact with patient introduced self, role, and reason for visit to patient. Patient appeared alert and oriented to self, location, and situation. PIPELINE MAINTENANCE SUPERVISOR provided [facility] Resource Guide with information to mental health resources and Warmline number. PIPELINE MAINTENANCE SUPERVISOR provided update to bedside RN.
--- NOTE | 2025-03-15 17:19 | PC.CC ---
Initial HH orders sent out, waiting for responses. Will need to send DC summary when available.
--- NOTE | 2025-03-16 08:16 | PC.CC ---
[facility] accepted and booked, soc pending. DC summary sent.
[2025-03-18 06:30] LABS: ANA Pattern CYTOPLASMIC; ANA Screen, IFA POSITIVE (NEGATIVE); ANA Titer 1:80 titer; Alpha-1-Antitrypsin* 190 mg/dL (83-199); Ceruloplasmin* 30 mg/dL (14-48); Copper* 121 mcg/dL (70-175); Mitochondrial Ab NEGATIVE (NEGATIVE)
== END 2025-03-15 14:15 | disposition home health service (06) | DRG 226 ==
LOC: SERX 15:34 → SERHOLD 17:54 → S3NX 20:46 → S2NX 03-12 11:52
PROVIDERS: Specialist; Student in an Organized Health Care Education/Training Program; Admitting Provider Student in an Organized Health Care Education/Training Program; Emergency Provider Family Medicine; Visit Provider Student in an Organized Health Care Education/Training Program
PROC: 0DJ08ZZ Inspection of Upper Intestinal Tract, Via Natural or Artificial Opening Endoscopic (ICD-10-PCS; CPT 43239; principal; 2025-03-11 19:00)
PROC: 0DJD8ZZ Inspection of Lower Intestinal Tract, Via Natural or Artificial Opening Endoscopic (ICD-10-PCS; CPT 45378; principal; 2025-03-13 19:30)
DX: K29.71 Gastritis, unspecified, with bleeding (principal); K64.1 Second degree hemorrhoids; K29.81 Duodenitis with bleeding; K21.01 Gastro-esophageal reflux disease with esophagitis, with bleeding; I13.2 Hypertensive heart and chronic kidney disease with heart failure and with stage 5 chronic kidney disease, or end stage renal disease; E11.22 Type 2 diabetes mellitus with diabetic chronic kidney disease; E78.5 Hyperlipidemia, unspecified; N18.6 End stage renal disease; Z99.2 Dependence on renal dialysis; J45.909 Unspecified asthma, uncomplicated; F32.A Depression, unspecified; D62 Acute posthemorrhagic anemia; N39.0 Urinary tract infection, site not specified; E11.40 Type 2 diabetes mellitus with diabetic neuropathy, unspecified; K74.60 Unspecified cirrhosis of liver; E87.1 Hypo-osmolality and hyponatremia; D63.1 Anemia in chronic kidney disease; H66.90 Otitis media, unspecified, unspecified ear; R18.8 Other ascites; E87.5 Hyperkalemia; E83.39 Other disorders of phosphorus metabolism; Z79.4 Long term (current) use of insulin; Z79.899 Other long term (current) drug therapy; Z66 Do not resuscitate
CPT/HCPCS: 36415; 70450; 71045; 74177; 80053; 80061; 80074; 81001; 82103; 82105; 82140; 82270; 82390; 82525; 82607; 82746; 83036; 83540; 83550; 83605; 83735; 84100; 84443; 85014; 85018; 85025; 85610; 85730; 86038; 86039; 86255; 86850; 86900; 86901; 86923; 87081; 87086; 87811; 93005; 93225; 96365; 96375; 96376; 97162; 99285; A4217; A4649; J0696; J1171; J1815; J2250; J2270; J2354; J2470; J3010; J7050; P9016; Q5105; Q5106; Q9967; A9270

== ENCOUNTER 2025-04-07 09:59 | Emergency (ER) | payer MEDICAID, SELFPAY ==
[2025-04-07] VITALS (7 sets, daily range): BP systolic 173–185; BP diastolic 16–79; PULSE 66–71; RESP 12–18; TEMP 36.3–37; O2SAT 96–100; BMI 28.6
--- NOTE | 2025-04-07 10:06 | PD.EDAMS ---
Altered Mental Status RME/HPI General Chief Complaint: Altered Mental Status Stated Complaint: ALTERED Time Seen by Provider: 04/07/25 10:35 Arrival date/time: 04/07/25 09:59 RME / HPI RME / HPI narrative: 59 yo female patient sent by ambulance from dialysis for AMS. Finished dialysis then was found altered. BG 70. Gave oral glucose. Patient is awake and spitting out oral glucose however not responding to questions or following commands. Moving all 4 extremities normally and no focal deficits. Related Data Home Medications ?Medication ?Instructions ?Recorded ?Confirmed atorvastatin 40 mg tablet 40 mg PO HS 10/07/21 03/10/25 carvedilol 6.25 mg tablet 6.25 mg PO BID 10/07/21 03/10/25 calcium acetate 667 mg tablet 1,334 mg PO TID 10/13/21 03/10/25 nifedipine 90 mg tablet,extended 90 mg PO QDAY 02/02/22 03/10/25 release insulin glargine 100 unit/mL (3 20 unit subcut QDAY 03/09/22 03/10/25 mL) subcutaneous pen (Basaglar KwikPen U-100 Insulin) sertraline 100 mg tablet 50 mg PO DAILY 10/17/24 03/10/25 albuterol 90 mcg/actuation aerosol 90 mcg inhalation [id number] sob and 03/10/25 03/10/25 inhaler wheezing cholecalciferol (vitamin D3) 25 1,000 unit PO QDAY 03/10/25 03/10/25 mcg (1,000 unit) capsule (Vitamin D3) hydralazine 50 mg tablet 50 mg PO TID 03/10/25 03/10/25 lidocaine 5 % topical patch 1 patch topical Q24H 03/10/25 03/10/25 Previous Rx's ?Medication ?Instructions ?Recorded hydrocodone 5 mg-acetaminophen 325 1 tab PO TID PRN pain #18 tabs 02/07/24 mg tablet amoxicillin 500 mg-potassium 1 tab PO BID #14 tabs 03/15/25 clavulanate 125 mg tablet cetirizine 10 mg tablet 10 mg PO QDAY PRN allergy symptoms 03/15/25 #7 tabs pantoprazole 40 mg tablet,delayed 40 mg PO QDAY #30 tabs 03/15/25 release cephalexin 500 mg capsule 500 mg PO TID #20 caps 04/07/25 Allergies Allergy/AdvReac Type Severity Reaction Status Date / Time No Known Allergies Allergy Verified 04/07/25 10:19 Review of Systems Review of Systems ROS Unobtainable: unobtainable due to mental status Past Medical History Past Medical History CARDIAC: Positive Hypercholesterolemia and Hypertension RESPIRATORY: Positive Asthma, Pneumonia and Sleep Apnea (use home 02) GASTROINTESTINAL: Positive Gastrointestinal Disorders, Cirrhosis, Gall Bladder Disease, Gastrointestinal Bleed, Ulcer and Gastroesophageal Reflux Disease GENITOURINARY: Positive Genitourinary Disorders, Renal Disease, Kidney Stones and Dialysis (HD MWF, RIGHT UPPER FISTULA) REPRODUCTIVE: Positive Previous Pregnancies MUSCULOSKELETAL: Positive Musculoskeletal Disorders and Arthritis ENT: Positive Cataracts ENDOCRINE: Positive Endocrine Disorders and Diabetes Mellitus Type 2 HEMATOLOGIC: Positive Blood Disorders and Anemia PSYCHO/SOCIAL: Positive Depression and Anxiety OTHER HISTORY: Positive Hospitalization, Blood Transfusions, Anesthesia Reactions (Hard to wake up from it) and Measles Family History FAMILY HISTORY: Positive Family Psychiatric Problems, Family Respiratory Disorders, Family Cardiac Disorders, Family Gastrointestinal Problems, Family Cancer and Family Anesthesia Reaction Surgical History SURGICAL: Positive Ear Surgery, Abdominal Surgery, Tubal Ligation and Section Social History SMOKING STATUS: Never smoker SUBSTANCE USE: does not use ED Exam Narrative Physical exam: GENERAL APPEARANCE: Patient is awake and spitting out oral glucose, not responding to questions or following commands, well-developed, well-nourished HEENT: Normocephalic, atraumatic; pupils equal, round, reactive to light; EOMI; mucous membranes pink, moist; oropharynx clear NECK: Supple LUNGS: CTABL; no wheezes, no rales, no rhonchi HEART: Regular rate, regular rhythm; normal S1, S2; no murmurs ABDOMEN: non distended; normal BS; soft, no tenderness, no guarding, no rebound; no masses, no organomegaly, no hernia BACK: no CVA tenderness EXTREMITIES: atraumatic; no edema NEUROLOGIC: Patient is awake and spitting out oral glucose, not responding to questions or following commands, moving all 4 extremities normally, no focal deficits SKIN: warm, dry, normal color; no rashes Course Course Course Narrative: 1445: On reassessment, patient has improved from initially evaluation. Patient is awake and answering questions. At this time reports feeling dizzy. No pain. Will order for glucose recheck. BG 71. Patients mentation appears improved. Will DC home. Quality Measures none Orders Category Date Time Status Bedside Blood Glucose NOW Care 04/07/25 10:57 Active Bedside Blood Glucose NOW Care 04/07/25 14:47 Active Bedside Blood Glucose NOW Care 04/07/25 14:51 Completed Hvac Engineering Technician NOW Care 04/07/25 10:58 Active Continuous Pulse Oximetry NOW Care 04/07/25 10:57 Completed EKG (ED ONLY) *Do not use* NOW Care 04/07/25 10:58 Completed Insert IV NOW Care 04/07/25 10:58 Active NPO NOW Care 04/07/25 10:[address] head/brain wo con Stat Exams 04/07/25 11:20 Completed EKG (ED Only) Stat Exams 04/07/25 10:57 Draft Ammonia Stat Lab 04/07/25 11:10 Completed CBC Stat Lab 04/07/25 11:09 Completed Comprehensive Metabolic Panel Stat Lab 04/07/25 11:09 Completed Magnesium Stat Lab 04/07/25 11:09 Completed Partial Thromboplastin Time Stat Lab 04/07/25 11:09 Completed Phosphorous Stat Lab 04/07/25 11:09 Completed Prothrombin Time with INR Stat Lab 04/07/25 11:09 Completed Troponin I Stat Lab 04/07/25 11:09 Completed Urinalysis, C/S if Indicated Stat Lab 04/07/25 13:48 Completed Urine Culture Stat Lab 04/07/25 13:48 Received cefTRIAXone/D5w 1gm IV premix [Rocephin/D5w 1gm IV Med 04/07/25 16:12 Discontinued premix] 1 gm in 50 ml IV X1 Vital Signs Vital signs: Vital Signs Temperature 97.9 F 04/07/25 10:20 Pulse Rate 68 04/07/25 10:20 Respiratory Rate 15 04/07/25 10:20 Blood Pressure 173/16 H 04/07/25 10:20 Pulse Oximetry (%) 96 04/07/25 10:20 Oxygen Delivery Method Room Air 04/07/25 10:20 Pulse ox is 96% on room air which is adequate. Altered Mental Status MDM Narrative MDM Narrative:: Madeline Ferreira am scribing for and in the presence of Dr. Gallo. Patient data External records reviewed:: [facility] previous records and EMS form Clinical information provided by:: EMS Social determinants that could affect healthcare access:: none Patient has the following chronic illnesses:: ESRD on HD M/W/F, hypertension, insulin-dependant diabetes, GERD How is presenting disease/condition affected by chronic disease/condition?: exacerbated by Evaluation data The following diagnostics were reviewed and interpreted by me:: lab results and EKG tracing(s) (EKG @ 13:16. Normal sinus rhythm, rate 68, right bundle branch block, no STEMI. ) Lab and/or radiology exams considered but not ordered:: None Interpretation Summary: Ordering Physician: Laurel Gallo MD Date of Service: 04/07/25 Procedure(s): CT head/brain wo con Accession Number(s): [id number] cc: Douglas Louise MD; Laurel Gallo MD~ Examination: CT brain head without contrast. 2-D sagittal coronal reconstructions Date and time of exam: April 07, 2025, 1134 hours COMPARISON: March 10, 2025 INDICATIONS: Onset altered mental status today CTDI: vol (mGy): 40.3 DLP: (mGycm): 898 Technique: Multiple CT axial sections of the brain have been obtained, 5 mm slice thickness. Contrast has not been administered. 2-D sagittal, coronal reconstructions have been obtained Low dose protocols were performed. One or more of the following dose reduction techniques were used; automated exposure control, adjustment of the mA and/or KV according to patient size, use of iterative reconstruction technique. Findings: No significant ventricular enlargement. Intra-axial or extra-axial hemorrhage density is not seen. No mass effect or midline shift Basal cisterns are not remarkable. Fourth ventricle is midline. Cranial vault intact. Significant left sphenoid sinusitis Impression: Negative for acute hemorrhage, mass effect or midline shift Dictated By: Douglas Louise MD Signed By: <Electronically signed by Douglas Louise MD in OV> 04/07/25 1140 Medications / Prescriptions Medications or Prescriptions considered but not ordered:: None Medication administrations:: Medication Administration History Discontinued Medications Ceftriaxone Sodium/Dextrose (Rocephin/D5w 1gm Iv Premix) 1 gm in 50 mls @ 100 mls/hr IV X1 ONE Stop: 04/07/25 16:41 Last Admin: 04/07/25 16:23 Dose: 100 mls/hr Documented By: AA See above Consultations Consultation(s) initiated? (list below): No Diagnosis Most likely diagnosis given after review of the tests above:: Hypoglycemia UTI Admission Indicated Admission indicated?: not indicated Explain why admission is indicated or not indicated:: With no condition needing emergent intervention, there was no indication for admission. Admission Request Was there a request for admission?: No Disposition Plan Disposition Plan: Discharge Discharge Attestation Discharge Attestation: The patient and all family members were given an opportunity to ask questions and understood the discharge instructions. Discharge instructions specifically effects, indications for sooner follow up or return to the emergency department, and the expected course of current diagnosis. Patient condition: Stable Discharge Plan Plan Patient Disposition: HOME (Self Care) Prescriptions/Referrals Prescriptions/Med Rec: New cephalexin 500 mg capsule 500 mg PO TID Qty: 20 0RF No Action calcium acetate 667 mg Tablet 1,334 mg PO TID Rx Instructions: after every meal atorvastatin 40 mg tablet 40 mg PO HS Patient Comments: TOME JAMES TABLETA TODOS LOS D FOR 90 DAYS carvedilol 6.25 mg tablet 6.25 mg PO BID Patient Comments: TOME JAMES TABLETA DOS VECES AL D A nifedipine 90 mg tablet extended release 90 mg PO QDAY Patient Comments: TOME JAMES TABLETA TODOS LOS D EN EST MELLISSA VAC O FOR 90 DAYS insulin glargine [Basaglar KwikPen U-100 Insulin] 100 unit/mL (3 mL) insulin pen 20 unit subcut QDAY hydrocodone-acetaminophen 5-325 mg tablet 1 tab PO TID MDD 15mg PRN (Reason: pain) Qty: 18 0RF lidocaine 5 % adhesive patch,medicated 1 patch topical Q24H Rx Instructions: leave on most painful area for up to 12 hrs albuterol 90 mcg/actuation aerosol 90 mcg inhalation [id number] cholecalciferol (vitamin D3) [Vitamin D3] 25 mcg (1,000 unit) capsule 1,000 unit PO QDAY hydralazine 50 mg Tablet 50 mg PO TID amoxicillin-pot clavulanate 500-125 mg tablet 1 tab PO BID Qty: 14 0RF cetirizine 10 mg tablet 10 mg PO QDAY PRN (Reason: allergy symptoms) Qty: 7 0RF pantoprazole 40 mg tablet,delayed release (DR/EC) 40 mg PO QDAY Qty: 30 0RF sertraline 100 mg tablet 50 mg PO DAILY Referrals: Miguel Macdonald MD [Primary Care Provider, Family Practice] - In 1 week Problem List Clinical Impression: Hypoglycemia, UTI (urinary tract infection) Patient/Caregiver Discharge Instructions Education Materials: Hypoglycemia (Low Blood Sugar), ED CYSTITIS Female Adult Print Language: [place] Stand Alone Forms: Ghazal Award Info., Patient Portal Info Letter
--- NOTE | 2025-04-07 10:36 | PC.NURSE ---
Patient presents to ED from HD after becoming unresponsive at HD and was administered 200g oral glucose. Patient gcs 14, slow to respond at times. Per daughter at bedside had previous upper abd pain on monday, patient denies pain at this time. Call light within reach.
--- NOTE | 2025-04-07 10:57 | EKG_ITS ---
[facility] Test Date: 2025-04-07 Pat Name: HENRIQUE MAJANO Department: Room: - Gender: Female Senior Web Engineer: : 1965 Requested By: Laurel Ferrari Order Number: [id number] Reading MD: Laurel Ferrari Measurements Intervals [place] Rate: 68 P: -1 SC: 188 QRS: 65 QRSD: 120 T: -15 QT: 467 QTc: 499 Interpretive Statements SINUS RHYTHM RIGHT BUNDLE BRANCH BLOCK [120+ ms QRS DURATION, UPRIGHT V1, 40+ ms S IN I/aVL/V4/V5/V6] Compared to ECG 03/10/2025 10:11:05 Right bundle-branch block now present Incomplete right bundle-branch block no longer present /store/S0/[id number]/[id number].pdf
--- NOTE | 2025-04-07 11:20 | XR_ITS ---
Examination: CT brain head without contrast. 2-D sagittal coronal reconstructions Date and time of exam: April 07, 2025, 1134 hours COMPARISON: March 10, 2025 INDICATIONS: Onset altered mental status today CTDI: vol (mGy): 40.3 DLP: (mGycm): 898 Technique: Multiple CT axial sections of the brain have been obtained, 5 mm slice thickness. Contrast has not been administered. 2-D sagittal, coronal reconstructions have been obtained Low dose protocols were performed. One or more of the following dose reduction techniques were used; automated exposure control, adjustment of the mA and/or KV according to patient size, use of iterative reconstruction technique. Findings: No significant ventricular enlargement. Intra-axial or extra-axial hemorrhage density is not seen. No mass effect or midline shift Basal cisterns are not remarkable. Fourth ventricle is midline. Cranial vault intact. Significant left sphenoid sinusitis Impression: Negative for acute hemorrhage, mass effect or midline shift
[2025-04-07 11:23] LABS: Basophils # (Auto) 0.0 Thou/mm3 (0.0-0.2); Basophils % (Auto) 1 % (0-2.5); Eosinophils # (Auto) 0.1 Thou/mm3 (0.0-0.5); Eosinophils % (Auto) 3 % (0-10); Hematocrit 31.8 % (36.0-46.0); Hemoglobin 10.7 g/dL (12.0-16.0); Immature Granulocytes Auto 0.02 Thou/mm3 (0.00-0.00); Lymphocytes # (Auto) 0.6 Thou/mm3 (1.0-4.8); Lymphocytes % (Auto) 13 % (10-50); Mean Corpuscular HGB Conc 33.6 g/dl (31.0-37.0); Mean Corpuscular Hemoglobin 34.3 pg (25.0-35.0); Mean Corpuscular Volume 102 fL (80-100); Monocytes # (Auto) 0.3 Thou/mm3 (0.0-0.8); Monocytes % (Auto) 8 % (0-12); Neutrophils # (Auto) 3.3 Thou/mm3 (1.8-7.7); Neutrophils % (Auto) 76 % (37-80); Nucleated Red Blood Cell # 0.00 Thou/mm3 (0.00-0.00); Nucleated Red Blood Cell % 0 /100 WBC (0); Platelet Count 98 Thou/mm3 (140-440); RDW Standard Deviation 62.3 fL (36.4-46.3); Red Blood Count 3.12 Miln/mm3 (4.00-5.20); White Blood Count 4.4 Thou/mm3 (3.6-11.0)
[2025-04-07 11:42] LABS: Ammonia 42 uMol/L (11-32)
[2025-04-07 11:44] LABS: Alanine Aminotransferase 26 U/L (10-49); Albumin, Serum 5.0 gm/dL (3.4-4.8); Albumin/Globulin Ratio 1.8 (1.2-2.2); Alkaline Phosphatase 208 U/L (46-116); Anion Gap 10 (7-16); Aspartate Amino Transferase 30 U/L (0-34); BUN/Creatinine Ratio 5 Ratio (12-20); Bilirubin,Total 0.2 mg/dL (0.3-1.2); Blood Urea Nitrogen 26 mg/dL (9-23); Calcium 9.3 mg/dL (8.3-10.6); Calcium (Corrected) 9.3 mg/dL (8.5-10.1); Carbon Dioxide 32.7 mMol/L (20.0-31.0); Chloride 91 mMol/L (98-107); Creatinine (Component) 4.8 mg/dL (0.6-1.3); Estimated Creatinine Clearance 10.2 mL/min (>60); Globulin 2.8 gm/dL (2.3-3.5); Glucose 119 mg/dL (74-106); Magnesium 2.1 mg/dL (1.6-2.6); Osmolality,Calculated 273 (275-295); Phosphorous 2.1 mg/dL (2.4-5.1); Potassium 3.5 mMol/L (3.4-5.1); Sodium 134 mMol/L (136-145); Total Protein 7.8 gm/dL (5.7-8.2); Troponin I < 0.020 ng/mL (0.0-0.045); eGFR 10 See Note
[2025-04-07 11:48] LABS: INR 1.1 (0.9-1.3); Partial Thromboplastin Time 34.9 Seconds (22.0-36.0); Prothrombin Time 12.0 Seconds (9.0-12.2)
[2025-04-07 13:55] LABS: Collection Type, Urine Clean Catch
[2025-04-07 14:19] LABS: Bilirubin,Urine Negative (Negative); Blood,Urine 2+ (Negative); Clarity,Urine Turbid (Clear/Hazy); Color,Urine Yellow (Lt Yel-Yel); Glucose, Urine Negative (Negative); Ketones,Urine Negative (Negative); Leukocyte Esterase,Urine Positive (Negative); Nitrite,Urine Negative (Negative); PH,Urine 7.5 (5.0-7.0); Protein,Urine 2+ (Neg - Trace); RBC,Urine 69 /hpf (0-3); Specific Gravity,Urine 1.017 (1.001-1.035); Squamous Epithelial Cell,Urine 2 /hpf (0-5); Urobilinogen,Urine Negative mg/dL (0.0-1.0); WBC,Urine 219 /hpf (0-5)
[2025-04-07 14:25] LABS: Culture Indicated,Urine Yes
[2025-04-07] MEDS: cefTRIAXone/D5w 1gm IV premix 1 GM/50 ML BAG IV (16:23)
[2025-04-07] MEDS: ACETAMINOPHEN 325 MG TABLET 650 MG PO (17:47)
== END 2025-04-07 17:55 | disposition home or self-care (01) ==
PROVIDERS: Emergency Provider Emergency Medicine; PCP Family Medicine
DX: E16.2 Hypoglycemia, unspecified (principal)
CPT/HCPCS: 36415; 51701; 70450; 80053; 81001; 82140; 83735; 84100; 84484; 85025; 85610; 85730; 87086; 93005; 96365; 99285; J0696; A9270